=== PATIENT | female | born 1985 | race Caucasian/White ===

== ENCOUNTER 2016-11-05 12:44 | Inpatient (IN) | payer MEDICAID ==
[2016-11-05 13:30] LABS: APPEARANCE,URINE CLEAR; BILIRUBIN,URINE NEGATIVE (NEGATIVE); GLUCOSE, URINE NEGATIVE (NEGATIVE); KETONES,URINE NEGATIVE (NEGATIVE); LEUKOCYTE ESTERASE,URINE NEGATIVE (NEGATIVE); NITRITE,URINE NEGATIVE (NEGATIVE); PROTEIN,URINE NEGATIVE (NEGATIVE); UROBILINOGEN,URINE NEGATIVE mg/dL (<2.0)
[2016-11-05 13:40] LABS: ABSOLUTE LYMPHOCYTES (AUTO) 0.4 10^3/uL (0.5-4.7); ABSOLUTE MONOCYTES (AUTO) 0.3 10^3/uL (0.1-1.4); ABSOLUTE NEUT (AUTO) 6.5 10^3/uL (1.7-8.2); BASOPHILS % (AUTO) 0.6 % (0-2); EOSINOPHILS % (AUTO) 0.2 % (0-6); HEMATOCRIT 32.8 % (36.0-47.0); HEMOGLOBIN 11.1 g/dL (12.0-15.5); HGB HCT DIFFERENCE 0.5; MEAN CORPUSCULAR HEMOGLOBIN 31.5 pg (27.0-33.4); MEAN CORPUSCULAR HGB CONC 33.9 g/dL (32.0-36.0); MEAN CORPUSCULAR VOLUME 93 fl (80-97); MONOCYTES % (AUTO) 3.8 % (3-13); RED BLOOD COUNT 3.53 10^6/uL (3.72-5.28); RED CELL DISTRIBUTION WIDTH 12.8 % (11.5-14.0); SEGMENTED NEUTROPHILS % (AUTO) 89.4 % (42-78)
[2016-11-05 13:46] LABS: WHITE BLOOD COUNT 7.3 10^3/uL (4.0-10.5)
[2016-11-05 13:51] LABS: ALANINE AMINOTRANSFERASE 73 U/L (9-52); ALBUMIN 3.1 g/dL (3.5-5.0); ALKALINE PHOSPHATASE 57 U/L (38-126); ANION GAP 10 (5-19); ASPARTATE AMINO TRANSFERASE 80 U/L (14-36); BILIRUBIN,DIRECT 0.1 mg/dL (0.0-0.4); BILIRUBIN,TOTAL 0.4 mg/dL (0.2-1.3); BLOOD UREA NITROGEN 10 mg/dL (7-20); CALCIUM 8.4 mg/dL (8.4-10.2); CARBON DIOXIDE 20 mmol/L (22-30); CHLORIDE 106 mmol/L (98-107); CREATININE RESULT 0.46 mg/dL (0.52-1.25); GLUCOSE 73 mg/dL (75-110); LDH 417 U/L (313-618); POTASSIUM 4.1 mmol/L (3.6-5.0); SODIUM 135.6 mmol/L (137-145); TOTAL PROTEIN 5.8 g/dL (6.3-8.2); URIC ACID 4.5 mg/dL (2.5-6.2)
[2016-11-05 14:02] LABS: URINE BARBITURATES SCREEN NEGATIVE; URINE METHADONE SCREEN NEGATIVE; URINE OPIATES LOW NEGATIVE; URINE PHENCYCLIDINE SCREEN NEGATIVE
[2016-11-05] MEDS ORDERED: BETAMET ACET/BETAMET NA INJ 6 MG/1 ML ONE (15:39)
[2016-11-05] MEDS ORDERED: MAGNESIUM SULFATE 4 GM/100 ML RTUPB IV ONE (15:40)
--- NOTE | 2016-11-05 20:03 | L&D Flow Sheet ---
LD Flowsheet Datetime Report Generated by CPN: 11/05/2016 20:00 Datetime: 11/05/2016 19:47 NBP Sys/Tonya/Mean (mmHg): 139 (QS system process) : 75 (QS system process) : 100 (QS system process) Pulse: 77 (QS system process) LaborFlag: Antepartum (QS system process) Datetime: 11/05/2016 19:31 NBP Sys/Tonya/Mean (mmHg): 147 (QS system process) : 74 (QS system process) : 101 (QS system process) Pulse: 72 (QS system process) LaborFlag: Antepartum (QS system process) Datetime: 11/05/2016 19:20 Communication Comments: report given to Winifred Bowens RN. Care relinquished (Rita Dwyer, RN) Datetime: 11/05/2016 19:16 NBP Sys/Tonya/Mean (mmHg): 138 (QS system process) : 71 (QS system process) : 98 (QS system process) Pulse: 73 (QS system process) LaborFlag: Antepartum (QS system process) Datetime: 11/05/2016 19:12 Communication Comments: order received from Dr. Abdul for patient to eat (Rita Reymundo, RN) Datetime: 11/05/2016 19:01 NBP Sys/Tonya/Mean (mmHg): 144 (QS system process) : 76 (QS system process) : 102 (QS system process) Pulse: 73 (QS system process) LaborFlag: Antepartum (QS system process) Datetime: 11/05/2016 19:00 Uterine Activity Monitor Mode: External; Palpation (Rita Reymundo, RN) Frequency (min): 2-6.5 (Rita Reymundo, RN) Quality: Mild (Rita Reymundo, RN) Duration (sec): 60-90 (Rita Reymundo, RN) Duration Criteria: Less than Two 120 Second Contractions (Rita Reymundo, RN) Pattern: Normal: <= 5 Contractions in 10 Minutes (Rita Reymundo, RN) Resting Tone (Palpate): Relaxed (Rita Reymundo, RN) Assessment A Monitor Mode: External US (Rita Reymundo, RN) FHR Baseline Rate : 140 (Rita Reymundo, RN) FHR Baseline Changes: No Baseline Change (Rita Reymundo, RN) Variability: Moderate 6-25 bpm (Rita Reymundo, RN) Accelerations: None (Rita Reymundo, RN) Decelerations: None (Rita Reymundo, RN) Datetime: 11/05/2016 18:53 Communication Comments: Dr. Sethi at bedside discussing infant's POC (Rita Reymundo, RN) Datetime: 11/05/2016 18:47 NBP Sys/Tonya/Mean (mmHg): 136 (QS system process) : 77 (QS system process) : 101 (QS system process) Pulse: 76 (QS system process) LaborFlag: Antepartum (QS system process) Datetime: 11/05/2016 18:45 Uterine Activity Monitor Mode: External; Palpation (Rita Dwyer RN) Frequency (min): x1 (Rita Dwyer RN) Quality: Mild (Rita Dwyer RN) Duration (sec): 60 (Rita Reymundo, RN) Duration Criteria: Less than Two 120 Second Contractions (Rita Dwyer, RN) Pattern: Normal: <= 5 Contractions in 10 Minutes (Rita Dwyer, RN) Resting Tone (Palpate): Relaxed (Rita Dwyer, RN) Assessment A Monitor Mode: External US (Rita Dwyer, RN) FHR Baseline Rate : 140 (Rita Dwyer, RN) FHR Baseline Changes: No Baseline Change (Rita Reymundo, RN) Variability: Moderate 6-25 bpm (Rita Reymundo, RN) Accelerations: 15X15 (Rita Dwyer, RN) Decelerations: None (Rita Dwyer, RN) Datetime: 11/05/2016 18:31 NBP Sys/Tonya/Mean (mmHg): 146 (QS system process) : 81 (QS system process) : 106 (QS system process) Pulse: 71 (QS system process) LaborFlag: Antepartum (QS system process) Datetime: 11/05/2016 18:30 Uterine Activity Monitor Mode: External; Palpation (Rita Dwyer RN) Frequency (min): none (Rita Dwyer, RN) Quality: Mild (Rita Dwyer, RN) Duration Criteria: Less than Two 120 Second Contractions (Rita Dwyer, RN) Pattern: Normal: <= 5 Contractions in 10 Minutes (Rita Dwyer, RN) Resting Tone (Palpate): Relaxed (Rita Dwyer, RN) Assessment A Monitor Mode: External US (Rita Dwyer RN) FHR Baseline Rate : 140 (Rita Dwyer RN) FHR Baseline Changes: No Baseline Change (Rita Dwyer RN) Variability: Moderate 6-25 bpm (Rita Dwyer RN) Accelerations: 10X10 (Rita Reymundo, RN) Decelerations: None (Rita Dwyer, RN) Datetime: 11/05/2016 18:16 NBP Sys/Tonya/Mean (mmHg): 140 (QS system process) : 80 (QS system process) : 105 (QS system process) Pulse: 70 (QS system process) LaborFlag: Antepartum (QS system process) Datetime: 11/05/2016 18:15 Uterine Activity Monitor Mode: External; Palpation (Rita Dwyer RN) Frequency (min): 5-6 (Rita Dwyer, RN) Quality: Mild (Rita Reymundo, RN) Duration (sec): 70-80 (Rita Reymundo, RN) Duration Criteria: Less than Two 120 Second Contractions (Rita Reymundo, RN) Pattern: Normal: <= 5 Contractions in 10 Minutes (Rita Reymundo, RN) Resting Tone (Palpate): Relaxed (Rita Reymundo, RN) Assessment A Monitor Mode: External US (Rita Dwyer, RN) FHR Baseline Rate : 140 (Rita Dwyer, RN) FHR Baseline Changes: No Baseline Change (Rita Dwyer, RN) Variability: Moderate 6-25 bpm (Rita Reymundo, RN) Accelerations: 15X15 (Rita Reymundo, RN) Decelerations: None (Rita Reymundo, RN) Datetime: 11/05/2016 18:02 NBP Sys/Tonya/Mean (mmHg): 143 (QS system process) : 74 (QS system process) : 103 (QS system process) Pulse: 77 (QS system process) LaborFlag: Antepartum (QS system process) Datetime: 11/05/2016 18:00 Uterine Activity Monitor Mode: External; Palpation (Rita Reymundo, RN) Frequency (min): x2 (Rita Reymundo, RN) Quality: Mild (Rita Reymundo, RN) Duration (sec): 60-70 (Rita Reymundo, RN) Duration Criteria: Less than Two 120 Second Contractions (Rita Reymundo, RN) Pattern: Normal: <= 5 Contractions in 10 Minutes (Rita Reymundo, RN) Resting Tone (Palpate): Relaxed (Rita Reymundo, RN) Assessment A Monitor Mode: External US (Rita Dwyer, RN) FHR Baseline Rate : 140 (Rita Dwyer, RN) FHR Baseline Changes: No Baseline Change (Rita Dwyer, RN) Variability: Moderate 6-25 bpm (Rita Dwyer, RN) Accelerations: None (Rita Dwyer, RN) Decelerations: None (Rita Dwyer, RN) Datetime: 11/05/2016 17:47 NBP Sys/Tonya/Mean (mmHg): 149 (QS system process) : 80 (QS system process) : 109 (QS system process) Pulse: 73 (QS system process) LaborFlag: Antepartum (QS system process) Datetime: 11/05/2016 17:45 Uterine Activity Monitor Mode: External; Palpation (Rita Reymundo, RN) Frequency (min): 4.5-7 (Rita Reymundo, RN) Quality: Mild (Rita Reymundo, RN) Duration (sec): 50-70 (Rita Reymundo, RN) Duration Criteria: Less than Two 120 Second Contractions (Rita Reymundo, RN) Pattern: Normal: <= 5 Contractions in 10 Minutes (Rita Reymundo, RN) Resting Tone (Palpate): Relaxed (Rita Reymundo, RN) Assessment A Monitor Mode: External US (Rita Reymundo, RN) FHR Baseline Rate : 140 (Rita Reymundo, RN) FHR Baseline Changes: No Baseline Change (Rita Reymundo, RN) Variability: Moderate 6-25 bpm (Rita Reymundo, RN) Accelerations: 15X15 (Rita Reymundo, RN) Decelerations: None (Rita Reymundo, RN) Datetime: 11/05/2016 17:31 NBP Sys/Tonya/Mean (mmHg): 136 (QS system process) : 80 (QS system process) : 104 (QS system process) Pulse: 74 (QS system process) LaborFlag: Antepartum (QS system process) Datetime: 11/05/2016 17:30 Uterine Activity Monitor Mode: External; Palpation (Rita Dwyer RN) Frequency (min): x2 (Rita Dwyer RN) Quality: Mild (Rita Dwyer RN) Duration (sec): 60-70 (Rita Dwyer RN) Duration Criteria: Less than Two 120 Second Contractions (Rita Dwyer RN) Pattern: Normal: <= 5 Contractions in 10 Minutes (Rita Dwyer RN) Resting Tone (Palpate): Relaxed (Rita Dwyer RN) Assessment A Monitor Mode: External US (Rita Dwyer, RN) FHR Baseline Rate : 140 (Rita Dwyer, RN) FHR Baseline Changes: No Baseline Change (Rita Reymundo, RN) Variability: Moderate 6-25 bpm (Rita Dwyer, RN) Accelerations: 15X15 (Rita Dwyer, RN) Decelerations: None (Rita Dwyer, RN) Datetime: 11/05/2016 17:17 Communication Comments: MD okayed patient taking home medication. Labetalol 200 mg PO per order (Rita Dwyer, RN) Datetime: 11/05/2016 17:15 Uterine Activity Monitor Mode: External; Palpation (Rita Reymundo, RN) Frequency (min): none (Rita Reymundo, RN) Pattern: Normal: <= 5 Contractions in 10 Minutes (Rita Reymundo, RN) Resting Tone (Palpate): Relaxed (Rita Reymundo, RN) Assessment A Monitor Mode: External US (Rita Reymundo, RN) FHR Baseline Rate : 140 (Rita Reymundo, RN) FHR Baseline Changes: No Baseline Change (Rita Reymundo, RN) Variability: Moderate 6-25 bpm (Rita Reymundo, RN) Accelerations: 15X15 (Rita Reymundo, RN) Decelerations: None (Rita Reymundo, RN) Datetime: 11/05/2016 17:13 Patient Position/Activity: Left Tilt; Low Fowlers (Rita Reymundo, RN) Datetime: 11/05/2016 17:10 Communication Communication: RN at Bedside (Rita Reymundo, RN) Datetime: 11/05/2016 17:01 NBP Sys/Tonya/Mean (mmHg): 138 (QS system process) : 80 (QS system process) : 103 (QS system process) Pulse: 70 (QS system process) LaborFlag: Antepartum (QS system process) Datetime: 11/05/2016 17:00 Uterine Activity Monitor Mode: External; Palpation (Rita Dwyer, RN) Frequency (min): none (Rita Dwyer, RN) Resting Tone (Palpate): Relaxed (Rita Dwyer, MARBELLA) Assessment A Monitor Mode: External US (Rita Dwyer RN) FHR Baseline Rate : 140 (Rita Dwyer RN) FHR Baseline Changes: No Baseline Change (Rita Dwyer RN) Variability: Moderate 6-25 bpm (Rita Dwyer RN) Accelerations: 10X10 (Rita Dwyer RN) Decelerations: None (Rita Reymundo, RN) Datetime: 11/05/2016 16:46 NBP Sys/Tonya/Mean (mmHg): 137 (QS system process) : 73 (QS system process) : 99 (QS system process) Pulse: 66 (QS system process) LaborFlag: Antepartum (QS system process) Datetime: 11/05/2016 16:45 Uterine Activity Monitor Mode: External; Palpation (Rita Dwyer RN) Frequency (min): none (Rita Dwyer RN) Pattern: Normal: <= 5 Contractions in 10 Minutes (Rita Reymundo, RN) Resting Tone (Palpate): Relaxed (Rita Dwyer, RN) Assessment A Monitor Mode: External US (Rita Dwyer, RN) FHR Baseline Rate : 140 (Rita Dwyer, RN) FHR Baseline Changes: No Baseline Change (Rita Dwyer, RN) Variability: Moderate 6-25 bpm (Rita Dwyer, RN) Accelerations: None (Rita Dwyer, RN) Decelerations: None (Rita Dwyer, RN) Datetime: 11/05/2016 16:41 Communication Comments: bed rails padded (Rita Dwyer, RN) Communication Comments: Trevor hose and SCDs applied (Rita Dwyer, RN) Datetime: 11/05/2016 16:31 NBP Sys/Tonya/Mean (mmHg): 145 (QS system process) : 65 (QS system process) : 94 (QS system process) Pulse: 64 (QS system process) LaborFlag: Antepartum (QS system process) Datetime: 11/05/2016 16:30 Uterine Activity Monitor Mode: External; Palpation (Rita Dwyer RN) Frequency (min): none (Rita Dwyer, RN) Pattern: Normal: <= 5 Contractions in 10 Minutes (Rita Dwyer RN) Resting Tone (Palpate): Relaxed (Rita Dwyer RN) Assessment A Monitor Mode: External US (Rita Dwyer, RN) FHR Baseline Rate : 145 (Rita Dwyer, RN) FHR Baseline Changes: No Baseline Change (Rita Dwyer, RN) Variability: Moderate 6-25 bpm (Rita Dwyer RN) Accelerations: None (Rita Dwyer, RN) Decelerations: None (Rita Dwyer, RN) Datetime: 11/05/2016 16:16 NBP Sys/Tonya/Mean (mmHg): 162 (QS system process) : 103 (QS system process) : 128 (QS system process) Pulse: 69 (QS system process) Medications Magnesium/Antihypertensives: Magnesium Sulfate IV (Gm/hr) @ 2 (Rita Dwyer RN) LaborFlag: Antepartum (QS system process) Datetime: 11/05/2016 16:15 Uterine Activity Monitor Mode: External; Palpation (Rita Dwyer, RN) Frequency (min): none (Rita Dwyer, RN) Pattern: Normal: <= 5 Contractions in 10 Minutes (Rita Dwyer RN) Resting Tone (Palpate): Relaxed (Rita Dwyer, RN) Assessment A Monitor Mode: External US (Rita Dwyer, RN) FHR Baseline Rate : 145 (Rita Dwyer RN) FHR Baseline Changes: No Baseline Change (Rita Dwyer RN) Variability: Moderate 6-25 bpm (Rita Reymundo, RN) Accelerations: 15X15 (Rita Dwyer, RN) Decelerations: None (Rita Dwyer, RN) Datetime: 11/05/2016 16:01 NBP Sys/Tonya/Mean (mmHg): 172 (QS system process) : 95 (QS system process) : 127 (QS system process) Pulse: 66 (QS system process) LaborFlag: Antepartum (QS system process) Datetime: 11/05/2016 16:00 Uterine Activity Monitor Mode: External; Palpation (Rita Dwyer, RN) Frequency (min): none (Rita Dwyer, RN) Pattern: Normal: <= 5 Contractions in 10 Minutes (Rita Dwyer, RN) Resting Tone (Palpate): Relaxed (Rita Dwyer, RN) Assessment A Monitor Mode: External US (Rita Dwyer, RN) FHR Baseline Rate : 145 (Rita Dwyer, RN) FHR Baseline Changes: No Baseline Change (Rita Dwyer, RN) Variability: Moderate 6-25 bpm (Rita Dwyer, RN) Accelerations: 15X15 (Rita Dwyer, RN) Decelerations: None (Rita Dwyer, RN) Steroids: Celestone 12mg IM - Dose 1 (Rita Dwyer, RN) Datetime: 11/05/2016 15:58 Medications Magnesium/Antihypertensives: Magnesium Sulfate IV Loading (Gm) @ 4 (Rita Reymundo, RN) Datetime: 11/05/2016 15:56 I/O Interventions: [place] Cath Inserted (Rita Reymundo, RN) Datetime: 11/05/2016 15:46 NBP Sys/Tonya/Mean (mmHg): 169 (QS system process) : 102 (QS system process) : 130 (QS system process) Pulse: 68 (QS system process) LaborFlag: Antepartum (QS system process) Datetime: 11/05/2016 15:30 Uterine Activity Monitor Mode: External; Palpation (Rita Reymundo, RN) Frequency (min): none (Rita Reymundo, RN) Pattern: Normal: <= 5 Contractions in 10 Minutes (Rita Reymundo, RN) Resting Tone (Palpate): Relaxed (Rita Reymundo, RN) Assessment A Monitor Mode: External US (Rita Reymundo, RN) FHR Baseline Rate : 140 (Rita Reymundo, RN) FHR Baseline Changes: No Baseline Change (Rita Reymundo, RN) Variability: Moderate 6-25 bpm (Rita Reymundo, RN) Accelerations: 15X15 (Rita Reymundo, RN) Decelerations: None (Rita Reymundo, RN) Datetime: 11/05/2016 15:18 NBP Sys/Tonya/Mean (mmHg): 180 (QS system process) : 108 (QS system process) : 134 (QS system process) Pulse: 65 (QS system process) LaborFlag: Antepartum (QS system process) Datetime: 11/05/2016 15:00 Uterine Activity Monitor Mode: External; Palpation (Rita Dwyer RN) Frequency (min): none (Rita Dwyer RN) Duration Criteria: Less than Two 120 Second Contractions (Rita Dwyer RN) Resting Tone (Palpate): Relaxed (Rita Dwyer RN) Assessment A Monitor Mode: External US (Rita Reymundo, RN) FHR Baseline Rate : 140 (Rita Reymundo, RN) FHR Baseline Changes: No Baseline Change (Rita Reymundo, RN) Variability: Moderate 6-25 bpm (Rita Reymundo, RN) Accelerations: 15X15 (Rita Reymundo, RN) Decelerations: None (Rita Reymundo, RN) Datetime: 11/05/2016 14:54 I/O Interventions: Up to BR (Rita Reymundo, RN) Datetime: 11/05/2016 14:46 NBP Sys/Tonya/Mean (mmHg): 171 (QS system process) : 92 (QS system process) : 122 (QS system process) Pulse: 69 (QS system process) LaborFlag: Antepartum (QS system process) Datetime: 11/05/2016 14:45 Communication Comments: Order received from Dr. Abdul for Celestone 12 mg x1 now, repeat in 12 hours. Start magnesium sulfate at 4gram loading dose, start magnesium sulfate 2 gram maintenance dose of 2 mg/hr after bolus. Repeat pre-eclampsia labs in 6 hours (Rita Dwyer RN) Datetime: 11/05/2016 14:44 Communication Comments: Dr. Abdul at beside discussing POC (Rita Dwyer, RN) Datetime: 11/05/2016 14:31 NBP Sys/Tonya/Mean (mmHg): 136 (QS system process) : 81 (QS system process) : 103 (QS system process) Pulse: 66 (QS system process) LaborFlag: Antepartum (QS system process) Datetime: 11/05/2016 14:30 Uterine Activity Monitor Mode: External; Palpation (Rita Dwyer RN) Frequency (min): none (Rita Dwyer, RN) Pattern: Normal: <= 5 Contractions in 10 Minutes (Rita Dwyer RN) Resting Tone (Palpate): Relaxed (Rita Dwyer RN) Assessment A Monitor Mode: External US (Rita Reymundo, RN) FHR Baseline Rate : 145 (Rita Reymundo, RN) FHR Baseline Changes: No Baseline Change (Rita Reymundo, RN) Variability: Moderate 6-25 bpm (Rita Reymundo, RN) Accelerations: 15X15 (Rita Reymundo, RN) Decelerations: None (Rita Reymundo, RN) Datetime: 11/05/2016 14:16 NBP Sys/Tonya/Mean (mmHg): 135 (QS system process) : 83 (QS system process) : 104 (QS system process) Pulse: 69 (QS system process) LaborFlag: Antepartum (QS system process) Datetime: 11/05/2016 14:01 NBP Sys/Tonya/Mean (mmHg): 128 (QS system process) : 78 (QS system process) : 99 (QS system process) Pulse: 69 (QS system process) LaborFlag: Antepartum (QS system process) Datetime: 11/05/2016 14:00 Uterine Activity Monitor Mode: External; Palpation (Rita Dwyer RN) Frequency (min): none (Rita Dwyer, RN) Pattern: Normal: <= 5 Contractions in 10 Minutes (Rita Dwyer RN) Resting Tone (Palpate): Relaxed (Rita Dwyer RN) Assessment A Monitor Mode: External US (Rita Reymundo, RN) FHR Baseline Rate : 145 (Rita Dwyer RN) FHR Baseline Changes: No Baseline Change (Rita Dwyer RN) Variability: Moderate 6-25 bpm (Rita Dwyer, RN) Accelerations: 15X15 (Rita Dwyer RN) Decelerations: None (Rita Dwyer, RN) Datetime: 11/05/2016 13:46 NBP Sys/Tonya/Mean (mmHg): 129 (QS system process) : 80 (QS system process) : 99 (QS system process) Pulse: 67 (QS system process) LaborFlag: Antepartum (QS system process) Datetime: 11/05/2016 13:31 NBP Sys/Tonya/Mean (mmHg): 143 (QS system process) : 81 (QS system process) : 108 (QS system process) Pulse: 68 (QS system process) LaborFlag: Antepartum (QS system process) Datetime: 11/05/2016 13:30 Uterine Activity Monitor Mode: External; Palpation (Rita Dwyer, RN) Frequency (min): none (Rita Dwyer, RN) Pattern: Normal: <= 5 Contractions in 10 Minutes (Rita Dwyer, RN) Resting Tone (Palpate): Relaxed (Rita Dwyer, RN) Assessment A Monitor Mode: External US (Rita Dwyer, RN) FHR Baseline Rate : 145 (Rita Dwyer, RN) FHR Baseline Changes: No Baseline Change (Rita Dwyer, RN) Variability: Moderate 6-25 bpm (Rita Dwyer, RN) Accelerations: 15X15 (Rita Dwyer, RN) Decelerations: None (Rita Dwyer, RN) Datetime: 11/05/2016 13:26 Monitor Interventions for UA: [place] Adjusted (Rita Dwyer, RN) Assessment A Monitor Mode: External US (Rita Dwyer, RN) Pain Pain Scale: 0 (Rita Dwyer, RN) Pain Presence: None/Denies (Rita Dwyer, RN) Pain Goal: 1 (Rita Dwyer, RN) Pain Relief Measures: Comfort Measures (Rita Dwyer, RN) Vaginal Exam Membrane Status: Intact (Annotations: intact per patient) (Rita Dwyer, MARBELLA) Vaginal Bleeding: None (Rita Dwyer, RN) Maternal Assessment Level of Consciousness: Fully Conscious (Rita Dwyer, RN) DTR's/Clonus: DTRs 2+; No Clonus (Rita Dwyer, MARBELLA) Headache: Denies (Annotations: patient states she had a headache yesterday evening that was relieved after she took Tylenol) (Rita Dwyer, RN) Breath Sounds, Left: Clear and Equal (Rita Dwyer, RN) Breath Sounds, Right: Clear and Equal (Rita Dwyer, RN) Nausea/Vomiting: Denies (Rita Dwyer, RN) RUQ Epigastric Pain: Denies (Rita Dwyer, RN) Patient Care IV/Blood Work: Labs Drawn (Rita Dwyer RN) Oxygen Method: Room Air (Rita Dwyer RN) Teaching Instructional Method: Verbal (Rita Dwyer RN) Plan of Care: Plan of Care Discussed (Rita Dwyer RN) Unit Routine: [place] to Room; Call [place]; Bed (Rita Dwyer RN) LaborFlag: Antepartum (QS system process) Datetime: 11/05/2016 13:16 NBP Sys/Tonya/Mean (mmHg): 145 (QS system process) : 95 (QS system process) : 116 (QS system process) Pulse: 61 (QS system process) LaborFlag: Antepartum (QS system process) Datetime: 11/05/2016 13:09 Patient Position/Activity: Right Tilt; Semi-Fowlers (Rita Reymundo, RN) Datetime: 11/05/2016 13:00 Vital Signs Stage of : Antepartum (Rita Reymundo, RN)
[2016-11-05 21:18] LABS: HEMATOCRIT 36.3 % (36.0-47.0); HEMOGLOBIN 12.2 g/dL (12.0-15.5); HGB HCT DIFFERENCE 0.3; MEAN CORPUSCULAR HEMOGLOBIN 31.4 pg (27.0-33.4); MEAN CORPUSCULAR HGB CONC 33.6 g/dL (32.0-36.0); MEAN CORPUSCULAR VOLUME 94 fl (80-97); RED BLOOD COUNT 3.89 10^6/uL (3.72-5.28); RED CELL DISTRIBUTION WIDTH 12.7 % (11.5-14.0); WHITE BLOOD COUNT 7.8 10^3/uL (4.0-10.5)
[2016-11-05 21:35] LABS: BAND NEUTROPHILS % (MANUAL) 1 % (3-5); BASOPHILS % (MANUAL) 1 % (0-2); EOSINOPHILS % (MANUAL) 0 % (0-6); LYMPHOCYTES % (MANUAL) 4 % (13-45); TOTAL CELLS COUNTED 100
[2016-11-05 21:36] LABS: PLATELET CLUMPS PRESENT; POLYCHROMASIA SLIGHT
[2016-11-05 21:40] LABS: ALANINE AMINOTRANSFERASE 128 U/L (9-52); ALBUMIN 3.6 g/dL (3.5-5.0); ALKALINE PHOSPHATASE 75 U/L (38-126); ANION GAP 12 (5-19); ASPARTATE AMINO TRANSFERASE 132 U/L (14-36); BILIRUBIN,DIRECT 0.1 mg/dL (0.0-0.4); BILIRUBIN,TOTAL 0.4 mg/dL (0.2-1.3); BLOOD UREA NITROGEN 8 mg/dL (7-20); CALCIUM 8.4 mg/dL (8.4-10.2); CARBON DIOXIDE 21 mmol/L (22-30); CHLORIDE 103 mmol/L (98-107); CREATININE RESULT 0.42 mg/dL (0.52-1.25); GLUCOSE 123 mg/dL (75-110); LDH 497 U/L (313-618); POTASSIUM 4.2 mmol/L (3.6-5.0); SODIUM 136.3 mmol/L (137-145); TOTAL PROTEIN 6.4 g/dL (6.3-8.2); URIC ACID 5.3 mg/dL (2.5-6.2)
[2016-11-05] MEDS ORDERED: ACETAMINOPHEN 325 MG TABLET ONE (22:12)
[2016-11-06] MEDS ORDERED: ZOLPIDEM TARTRATE 5 MG TABLET ONE (00:05)
[2016-11-06] MEDS ORDERED: BETAMET ACET/BETAMET NA INJ 6 MG/1 ML ONE (04:00)
[2016-11-06] MEDS ORDERED: BETAMET ACET/BETAMET NA INJ 6 MG/1 ML IM ONE (04:00)
[2016-11-06] MEDS: RINGERS SOLUTION,LACTATED 1,000 ML IV PRN ×2 (04:23→12:05)
[2016-11-06] MEDS ORDERED: HYDROMORPHONE HCL INJ/PF 2 MG/ML AMPULE IV ONE (04:31)
[2016-11-06] MEDS ORDERED: ONDANSETRON HCL INJ/PF 4 MG/2 ML SDV IV ONE (04:31)
[2016-11-06] MEDS ORDERED: HYDROMORPHONE HCL INJ/PF 2 MG/ML AMPULE ONE ×4 (04:34→20:00)
[2016-11-06] MEDS ORDERED: ONDANSETRON HCL INJ/PF 4 MG/2 ML SDV ONE ×2 (04:35→09:14)
[2016-11-06] MEDS: MAGNESIUM SULFATE 500 ML IV PRN ×3 (05:04→16:02)
[2016-11-06 07:08] LABS: ABSOLUTE LYMPHOCYTES (AUTO) 0.4 10^3/uL (0.5-4.7); ABSOLUTE MONOCYTES (AUTO) 0.2 10^3/uL (0.1-1.4); ABSOLUTE NEUT (AUTO) 5.4 10^3/uL (1.7-8.2); BASOPHILS % (AUTO) 0.2 % (0-2); HEMATOCRIT 33.8 % (36.0-47.0); HEMOGLOBIN 11.6 g/dL (12.0-15.5); LYMPHOCYTES % (AUTO) 6.4 % (13-45); MEAN CORPUSCULAR HGB CONC 34.4 g/dL (32.0-36.0); MEAN CORPUSCULAR VOLUME 93 fl (80-97); MONOCYTES % (AUTO) 3.5 % (3-13); RED BLOOD COUNT 3.62 10^6/uL (3.72-5.28); RED CELL DISTRIBUTION WIDTH 12.9 % (11.5-14.0); SEGMENTED NEUTROPHILS % (AUTO) 89.9 % (42-78)
[2016-11-06 07:33] LABS: ALANINE AMINOTRANSFERASE 118 U/L (9-52); ALBUMIN 3.4 g/dL (3.5-5.0); ALKALINE PHOSPHATASE 74 U/L (38-126); ANION GAP 12 (5-19); ASPARTATE AMINO TRANSFERASE 97 U/L (14-36); BILIRUBIN,DIRECT 0.2 mg/dL (0.0-0.4); BILIRUBIN,TOTAL 0.4 mg/dL (0.2-1.3); BLOOD UREA NITROGEN 8 mg/dL (7-20); CALCIUM 7.3 mg/dL (8.4-10.2); CARBON DIOXIDE 19 mmol/L (22-30); CHLORIDE 103 mmol/L (98-107); CREATININE RESULT 0.45 mg/dL (0.52-1.25); GLUCOSE 103 mg/dL (75-110); LDH 422 U/L (313-618); POTASSIUM 4.7 mmol/L (3.6-5.0); SODIUM 133.5 mmol/L (137-145); TOTAL PROTEIN 6.1 g/dL (6.3-8.2)
--- NOTE | 2016-11-06 08:01 | L&D Flow Sheet ---
LD Flowsheet Datetime Report Generated by CPN: 11/06/2016 08:00 Datetime: 11/06/2016 07:56 NBP Sys/Tonya/Mean (mmHg): 141 (QS system process) : 97 (QS system process) : 116 (QS system process) Pulse: 75 (QS system process) LaborFlag: Antepartum (QS system process) Datetime: 11/06/2016 07:45 Breath Sounds, Left: Clear and Equal (Rita Dwyer RN) Breath Sounds, Right: Clear and Equal (Rita Dwyer RN) Nausea/Vomiting: Denies (Rita Dwyer RN) RUQ Epigastric Pain: Denies (Rita Dwyer RN) Magnesium/Antihypertensives: Magnesium Sulfate IV (Gm/hr) @ (Annotations: 2) (Rita Dwyer RN) Datetime: 11/06/2016 07:26 NBP Sys/Tonya/Mean (mmHg): 156 (QS system process) : 91 (QS system process) : 118 (QS system process) Pulse: 78 (QS system process) LaborFlag: Antepartum (QS system process) Datetime: 11/06/2016 07:00 Monitor Mode: External (Kim Bowens RN) Frequency (min): 8 (Kim Bowens RN) Quality: Mild (Kim Bowens RN) Duration (sec): 60-70 (Kim Bowens RN) Resting Tone (Palpate): Relaxed (Kim Bowens RN) Monitor Mode: External US (Kim Bowens RN) FHR Baseline Rate : 125 (Kim Kwan, RN) Variability: Moderate 6-25 bpm (Kim Kwan, RN) Accelerations: None (Kim Kwan, RN) Decelerations: None (Kim Kwan, RN) Level of Consciousness: Fully Conscious (Kim Kwan, RN) DTR's/Clonus: DTRs 2+; No Clonus (Kim Kwan, RN) Headache: Denies (Kim Kwan, RN) Breath Sounds, Left: Clear and Equal (Kim Kwan, RN) Breath Sounds, Right: Clear and Equal (Kim Kwan, RN) Nausea/Vomiting: Denies (Kim Kwan, RN) RUQ Epigastric Pain: Denies (Kim Kwan, RN) Datetime: 11/06/2016 06:56 NBP Sys/Tonya/Mean (mmHg): 138 (QS system process) : 76 (QS system process) : 100 (QS system process) Pulse: 77 (QS system process) LaborFlag: Antepartum (QS system process) Datetime: 11/06/2016 06:45 Monitor Mode: External (Kim Kwan, RN) Frequency (min): 8 (Kim Kwan, RN) Quality: Mild (Kim Kwan, RN) Duration (sec): 60-70 (Kim Kwan, RN) Resting Tone (Palpate): Relaxed (Kim Kwan, RN) Monitor Mode: External US (Kim Kwan, RN) FHR Baseline Rate : 120 (Kim Kwan, RN) Variability: Moderate 6-25 bpm (Kim Kwan, RN) Accelerations: 15X15 (Kim Kwan, RN) Decelerations: None (Kim Kwan, RN) Datetime: 11/06/2016 06:30 Monitor Mode: External (Kim Kwan, RN) Frequency (min): x1 (Kim Kwan, RN) Quality: Mild (Kim Kwan, RN) Duration (sec): 60 (Kim Kwan, RN) Resting Tone (Palpate): Relaxed (Kim Kwan, RN) Monitor Mode: External US (Kim Kwan, RN) FHR Baseline Rate : 120 (Kim Kwan, RN) Variability: Moderate 6-25 bpm (Kim Kwan, RN) Accelerations: 10X10 (Kim Kwan, RN) Decelerations: None (Kim Kwan, RN) Datetime: 11/06/2016 06:26 NBP Sys/Tonya/Mean (mmHg): 134 (QS system process) : 81 (QS system process) : 102 (QS system process) Pulse: 76 (QS system process) LaborFlag: Antepartum (QS system process) Datetime: 11/06/2016 06:15 Monitor Mode: External (Kim Kwan, RN) Frequency (min): 12 (Kim Kwan, RN) Quality: Mild (Kim Kwan, RN) Duration (sec): 50-60 (Kim Kwan, RN) Resting Tone (Palpate): Relaxed (Kim Kwan, RN) Monitor Mode: External US (Kim Kwan, RN) FHR Baseline Rate : 120 (Kim Kwan, RN) Variability: Moderate 6-25 bpm (Kim Kwan, RN) Accelerations: None (Kim Kwan, RN) Decelerations: None (Kim Kwan, RN) Datetime: 11/06/2016 06:00 Monitor Mode: External (Kim Kwan, RN) Frequency (min): x1 (Kim Kwan, RN) Quality: Mild (Kim Kwan, RN) Duration (sec): 60 (Kim Kwan, RN) Resting Tone (Palpate): Relaxed (Kim Kwan, RN) Monitor Mode: External US (Kim Kwan, RN) FHR Baseline Rate : 120 (Kim Kwan, RN) Variability: Moderate 6-25 bpm (Kim Kwan, RN) Accelerations: None (Kim Kwan, RN) Decelerations: None (Kim Kwan, RN) Level of Consciousness: Fully Conscious (Kim Kwan, RN) DTR's/Clonus: DTRs 2+; No Clonus (Kim Kwan, RN) Headache: Denies (Kim Kwan, RN) Breath Sounds, Left: Clear and Equal (Kim Kwan, RN) Breath Sounds, Right: Clear and Equal (Kim Kwan, RN) Nausea/Vomiting: Denies (Kim Kwan, RN) RUQ Epigastric Pain: Denies (Kim Kwan, RN) Datetime: 11/06/2016 05:56 NBP Sys/Tonya/Mean (mmHg): 133 (QS system process) : 82 (QS system process) : 103 (QS system process) Pulse: 72 (QS system process) LaborFlag: Antepartum (QS system process) Datetime: 11/06/2016 05:45 Monitor Mode: External (Kim Kwan, RN) Frequency (min): 10 (Kim Kwan, RN) Quality: Mild (Kim Kwan, RN) Duration (sec): 50-60 (Kim Kwan, RN) Resting Tone (Palpate): Relaxed (Kim Kwan, RN) Monitor Mode: External US (Kim Kwan, RN) FHR Baseline Rate : 120 (Kim Kwan, RN) Variability: Moderate 6-25 bpm (Kim Kwan, RN) Accelerations: None (Kim Kwan, RN) Decelerations: None (Kim Kwan, RN) Datetime: 11/06/2016 05:30 Monitor Mode: External (Kim Kwan, RN) Frequency (min): x1 (Kim Kwan, RN) Quality: Mild (Kim Kwan, RN) Duration (sec): 50 (Kim Kwan, RN) Resting Tone (Palpate): Relaxed (Kim Kwan, RN) Monitor Mode: External US (Kim Kwan, RN) FHR Baseline Rate : 125 (Kim Kwan, RN) Variability: Moderate 6-25 bpm (Kim Kwan, RN) Accelerations: None (Kim Kwan, RN) Decelerations: None (Kim Kwan, RN) Datetime: 11/06/2016 05:26 NBP Sys/Tonya/Mean (mmHg): 134 (QS system process) : 86 (QS system process) : 105 (QS system process) Pulse: 83 (QS system process) LaborFlag: Antepartum (QS system process) Datetime: 11/06/2016 05:15 Monitor Mode: External (Kim Kwan, RN) Frequency (min): 10 (Kim Kwan, RN) Quality: Mild (Kim Kwan, RN) Duration (sec): 60 (Kim Kwan, RN) Resting Tone (Palpate): Relaxed (Kim Kwan, RN) Monitor Mode: External US (Kim Kwan, RN) FHR Baseline Rate : 125 (Kim Kwan, RN) Variability: Moderate 6-25 bpm (Kim Kwan, RN) Accelerations: None (Kim Kwan, RN) Decelerations: None (Kim Kwan, RN) Datetime: 11/06/2016 05:00 Monitor Mode: External (Kim Kwan, RN) Frequency (min): x1 (Kim Kwan, RN) Quality: Mild (Kim Kwan, RN) Duration (sec): 60 (Kim Kwan, RN) Resting Tone (Palpate): Relaxed (Kim Kwan, RN) Monitor Mode: External US (Kim Kwan, RN) FHR Baseline Rate : 125 (Kim Kwan, RN) Variability: Moderate 6-25 bpm (Kim Kwan, RN) Accelerations: 10X10 (Kim Kwan, RN) Decelerations: None (Kim Kwan, RN) Pain Presence: None/Denies (Kim Kwan, RN) Level of Consciousness: Fully Conscious (Kim Kwan, RN) DTR's/Clonus: DTRs 2+; No Clonus (Kim Kwan, RN) Headache: Denies (Kim Kwan, RN) Breath Sounds, Left: Clear and Equal (Kim Kwan, RN) Breath Sounds, Right: Clear and Equal (Kim Kwan, RN) Nausea/Vomiting: Denies (Kim Kwan, RN) RUQ Epigastric Pain: Denies (Kim Kwan, RN) LaborFlag: Antepartum (QS system process) Datetime: 11/06/2016 04:56 NBP Sys/Tonya/Mean (mmHg): 137 (QS system process) : 82 (QS system process) : 105 (QS system process) Pulse: 86 (QS system process) Communication Comments: report from Paresh Mars RN, care assumed (Kim Bowens, RN) LaborFlag: Antepartum (QS system process) Datetime: 11/06/2016 04:45 Monitor Mode: External (Kim Kwan, RN) Frequency (min): x1 (Kim Kwan, RN) Quality: Mild (Kim Kwan, RN) Duration (sec): 70 (Kim Kwan, RN) Resting Tone (Palpate): Relaxed (Kim Kwan, RN) Monitor Mode: External US (Kim Kwan, RN) FHR Baseline Rate : 125 (Kim Kwan, RN) Variability: Moderate 6-25 bpm (Kim Kwan, RN) Accelerations: 15X15 (Kim Kwan, RN) Decelerations: None (Kim Kwan, RN) Analgesics/Sedatives: Dilaudid (mg) @ 2 IV (Jena Mars RN) Antiemetics/Antacids: Zofran IV (mg) @ 8 (Jena Mars RN) Datetime: 11/06/2016 04:30 Monitor Mode: External (Kim Kwan, RN) Frequency (min): 10 (Kim Kwan, RN) Quality: Mild (Kim Kwan, RN) Duration (sec): 40-70 (Kim Kwan, RN) Resting Tone (Palpate): Relaxed (Kim Kwan, RN) Monitor Mode: External US (Kim Kwan, RN) FHR Baseline Rate : 125 (Kim Kwan, RN) Variability: Moderate 6-25 bpm (Kim Kwan, RN) Accelerations: 10X10 (Kim Kwan, RN) Decelerations: None (Kim Kwan, RN) Datetime: 11/06/2016 04:29 Communication: RN Reviewed Strip; Provider Orders Received; Call/Page Placed to Provider (Jena Mars RN) Communication Comments: Informed Dr. Abdul of patient's complaint of headache and nausea that comes and goes and is asking for some IV meds; orders received for Dilaudid 1 mL and Zofran 8 mg IV now (Jena Mars RN) Datetime: 11/06/2016 04:26 NBP Sys/Tonya/Mean (mmHg): 139 (QS system process) : 95 (QS system process) : 112 (QS system process) Pulse: 84 (QS system process) LaborFlag: Antepartum (QS system process) Datetime: 11/06/2016 04:23 IV/Blood Work: IV Infusing per Order; New IV Bag Hung (Jena Field, RN) Datetime: 11/06/2016 04:15 Monitor Mode: External (Kim Kwan, RN) Frequency (min): None (Ikm Kwan, RN) Quality: Mild (Kim Kwan, RN) Resting Tone (Palpate): Relaxed (Kim Kwan, RN) Monitor Mode: External US (Kim Kwan, RN) FHR Baseline Rate : 125 (Kim Kwan, RN) Variability: Moderate 6-25 bpm (Kim Kwan, RN) Accelerations: 10X10 (Kim Kwan, RN) Decelerations: None (Kim Kwan, RN) Datetime: 11/06/2016 04:06 Steroids: Celestone 12mg IM - Dose 2 (Jena Field, RN) Medication Comments: Right Buttocks (Jena Field, RN) Datetime: 11/06/2016 04:00 Monitor Mode: External (Kim Kwan, RN) Frequency (min): 10-11 (Kim Kwan, RN) Quality: Mild (Kim Kwan, RN) Duration (sec): 60-70 (Kim Kwan, RN) Resting Tone (Palpate): Relaxed (Kim Kwan, RN) Monitor Mode: External US (Kim Kwan, RN) FHR Baseline Rate : 125 (Kim Kwan, RN) Variability: Moderate 6-25 bpm (Kim Kwan, RN) Accelerations: 15X15 (Kim Kwan, RN) Decelerations: None (Kim Kwan, RN) Level of Consciousness: Fully Conscious (Jena Field, RN) DTR's/Clonus: DTRs 2+; No Clonus (Jena Field, RN) Headache: Generalized (Jena Field, RN) Breath Sounds, Left: Clear and Equal (Jena Field, RN) Breath Sounds, Right: Clear and Equal (Jena Field, RN) Nausea/Vomiting: Denies (Jena Field, RN) RUQ Epigastric Pain: Denies (Jena Field, RN) Datetime: 11/06/2016 03:56 NBP Sys/Tonya/Mean (mmHg): 156 (QS system process) : 88 (QS system process) : 115 (QS system process) Pulse: 81 (QS system process) LaborFlag: Antepartum (QS system process) Datetime: 11/06/2016 03:45 Monitor Mode: External (Kim Kwan, RN) Frequency (min): x1 (Kim Kwan, RN) Quality: Mild (Kim Kwan, RN) Duration (sec): 60 (Kim Kwan, RN) Resting Tone (Palpate): Relaxed (Kim Kwan, RN) Monitor Mode: External US (Kim Kwan, RN) FHR Baseline Rate : 125 (Kim Kwan, RN) Variability: Moderate 6-25 bpm (Kim Kwan, RN) Accelerations: 15X15 (Kim Kwan, RN) Decelerations: None (Kim Kwan, RN) Datetime: 11/06/2016 03:30 Monitor Mode: External (Kim Kwan, RN) Frequency (min): x1 (Kim Kwan, RN) Quality: Mild (Kim Kwan, RN) Duration (sec): 50 (Kim Kwan, RN) Resting Tone (Palpate): Relaxed (Kim Kwan, RN) Monitor Mode: External US (Kim Kwan, RN) FHR Baseline Rate : 125 (Kim Kwan, RN) Variability: Moderate 6-25 bpm (Kim Kwan, RN) Accelerations: 15X15 (Kim Kwan, RN) Decelerations: None (Kim Kwan, RN) Datetime: 11/06/2016 03:26 NBP Sys/Tonya/Mean (mmHg): 144 (QS system process) : 86 (QS system process) : 111 (QS system process) Pulse: 80 (QS system process) LaborFlag: Antepartum (QS system process) Datetime: 11/06/2016 03:15 Monitor Mode: External; Palpation (Jena Field, RN) Frequency (min): x1 (Jena Mars, RN) Quality: Mild (Jena , RN) Duration (sec): 60 (Jena Mars, RN) Resting Tone (Palpate): Relaxed (Jena Mars, RN) Monitor Mode: External US (Jena Mars, RN) FHR Baseline Rate : 120 (Jena Mars, RN) Variability: Moderate 6-25 bpm (Jena , RN) Accelerations: 10X10 (Jena Mars, RN) Decelerations: None (Jena Mars, RN) Datetime: 11/06/2016 03:00 Monitor Mode: External; Palpation (Jena Mars, RN) Frequency (min): x1 (Jena Mars, RN) Quality: Mild (Jena Mars, RN) Duration (sec): 60 (Jena Mars, RN) Resting Tone (Palpate): Relaxed (Jena Mars, RN) Monitor Mode: External US (Jena Mars, RN) FHR Baseline Rate : 120 (Jena Mars, RN) Variability: Moderate 6-25 bpm (Jena , RN) Accelerations: None (Jena Mars, RN) Decelerations: None (Jena Mars, RN) Level of Consciousness: Fully Conscious (Jena Mars, RN) DTR's/Clonus: DTRs 2+; No Clonus (Jena Mars, RN) Headache: Generalized (Jena Mars, RN) Breath Sounds, Left: Clear and Equal (Jena Mars, RN) Breath Sounds, Right: Clear and Equal (Jena Mars, RN) Nausea/Vomiting: Denies (Jena Mars, RN) RUQ Epigastric Pain: Denies (Jena Mars, RN) Datetime: 11/06/2016 02:56 NBP Sys/Tonya/Mean (mmHg): 138 (QS system process) : 90 (QS system process) : 111 (QS system process) Pulse: 78 (QS system process) LaborFlag: Antepartum (QS system process) Datetime: 11/06/2016 02:45 Monitor Mode: External; Palpation (Jena Mars, RN) Frequency (min): None (Jena Mars, RN) Quality: Mild (Jena Mars, RN) Resting Tone (Palpate): Relaxed (Jena Mars, RN) Monitor Mode: External US (Jena Mars, RN) FHR Baseline Rate : 120 (Jena Mars, RN) Variability: Moderate 6-25 bpm (Jena Mars, RN) Accelerations: 15X15 (Jena Mars, RN) Decelerations: None (Jena Mars, RN) Datetime: 11/06/2016 02:30 Monitor Mode: External; Palpation (Jena Field, RN) Frequency (min): None (Jena Field, RN) Quality: Mild (Jena Field, RN) Resting Tone (Palpate): Relaxed (Jena Field, RN) Monitor Mode: External US (Jena Field, RN) FHR Baseline Rate : 125 (Jena Field, RN) Variability: Moderate 6-25 bpm (Jena Field, RN) Accelerations: 15X15 (Jena Field, RN) Decelerations: None (Jena Field, RN) Datetime: 11/06/2016 02:26 NBP Sys/Tonya/Mean (mmHg): 142 (QS system process) : 90 (QS system process) : 111 (QS system process) Pulse: 86 (QS system process) LaborFlag: Antepartum (QS system process) Datetime: 11/06/2016 02:22 Magnesium/Antihypertensives: Magnesium Sulfate IV (Gm/hr) @ 2 (Alfreda Lattibeaudeir, RN) Medication Comments: Magnesium bag changed (Alfreda Lattibeaudeir, RN) Datetime: 11/06/2016 02:15 Monitor Mode: External; Palpation (Jena Field, RN) Frequency (min): x1 (Jena Field, RN) Quality: Mild (Jena Field, RN) Duration (sec): 50 (Jena Field, RN) Resting Tone (Palpate): Relaxed (Jena Field, RN) Monitor Mode: External US (Jena Field, RN) FHR Baseline Rate : 125 (Jena Field, RN) Variability: Moderate 6-25 bpm (Jena Field, RN) Accelerations: 15X15 (Jena Field, RN) Decelerations: None (Jena Field, RN) Datetime: 11/06/2016 02:00 Monitor Mode: External; Palpation (Jena Field, RN) Frequency (min): x1 (Jena Field, RN) Quality: Mild (Jena Field, RN) Duration (sec): 80 (Jena Field, RN) Resting Tone (Palpate): Relaxed (Jena Field, RN) Monitor Mode: External US (Jena Field, RN) FHR Baseline Rate : 125 (Jena Field, RN) Variability: Moderate 6-25 bpm (Jena Field, RN) Accelerations: 10X10 (Jena Field, RN) Decelerations: None (Jena Field, RN) Level of Consciousness: Fully Conscious (Jena Field, RN) DTR's/Clonus: DTRs 2+; No Clonus (Jena Field, RN) Headache: Generalized (Jena Field, RN) Breath Sounds, Left: Clear and Equal (Jena Field, RN) Breath Sounds, Right: Clear and Equal (Jena Field, RN) Nausea/Vomiting: Denies (Jena Field, RN) RUQ Epigastric Pain: Denies (Jena Field, RN) Datetime: 11/06/2016 01:56 NBP Sys/Tonya/Mean (mmHg): 138 (QS system process) : 83 (QS system process) : 105 (QS system process) Pulse: 85 (QS system process) LaborFlag: Antepartum (QS system process) Datetime: 11/06/2016 01:45 Monitor Mode: External; Palpation (Jena Field, RN) Frequency (min): x1 (Jena Field, RN) Quality: Mild (Jena Field, RN) Duration (sec): 70 (Jena Field, RN) Resting Tone (Palpate): Relaxed (Jena Field, RN) Monitor Mode: External US (Jena Field, RN) FHR Baseline Rate : 125 (Jena Field, RN) Variability: Moderate 6-25 bpm (Jena Field, RN) Accelerations: 15X15 (Jena Field, RN) Decelerations: None (Jena Field, RN) Datetime: 11/06/2016 01:30 Monitor Mode: External; Palpation (Jena Field, RN) Frequency (min): None (Jena Field, RN) Quality: Mild (Jena Field, RN) Resting Tone (Palpate): Relaxed (Jena Field, RN) Monitor Mode: External US (Jena Field, RN) FHR Baseline Rate : 125 (Jena Field, RN) Variability: Moderate 6-25 bpm (Jena Field, RN) Accelerations: 10X10 (Jena Field, RN) Decelerations: None (Jena Field, RN) Datetime: 11/06/2016 01:26 NBP Sys/Tonya/Mean (mmHg): 138 (QS system process) : 80 (QS system process) : 103 (QS system process) Pulse: 77 (QS system process) LaborFlag: Antepartum (QS system process) Datetime: 11/06/2016 01:15 Monitor Mode: External; Palpation (Jena Field, RN) Frequency (min): None (Jena Field, RN) Quality: Mild (Jena Field, RN) Resting Tone (Palpate): Relaxed (Jena Field, RN) Monitor Mode: External US (Jena Field, RN) FHR Baseline Rate : 125 (Jena Field, RN) Variability: Moderate 6-25 bpm (Jena Field, RN) Accelerations: 10X10 (Jena Field, RN) Decelerations: None (Jena Field, RN) Datetime: 11/06/2016 01:00 Monitor Mode: External; Palpation (Jena Field, RN) Frequency (min): None (Jena Field, RN) Quality: Mild (Jena Field, RN) Resting Tone (Palpate): Relaxed (Jena Field, RN) Monitor Mode: External US (Jena Field, RN) FHR Baseline Rate : 125 (Jena Field, RN) Variability: Moderate 6-25 bpm (Jena Field, RN) Accelerations: 10X10 (Jena Field, RN) Decelerations: None (Jena Field, RN) Level of Consciousness: Fully Conscious (Jena Field, RN) DTR's/Clonus: DTRs 2+; No Clonus (Jena Field, RN) Headache: Generalized (Jena Field, RN) Breath Sounds, Left: Clear and Equal (Jena Field, RN) Breath Sounds, Right: Clear and Equal (Jena Field, RN) Nausea/Vomiting: Denies (Jena Field, RN) RUQ Epigastric Pain: Denies (Jena Field, RN) Datetime: 11/06/2016 00:56 NBP Sys/Tonya/Mean (mmHg): 138 (QS system process) : 85 (QS system process) : 107 (QS system process) Pulse: 81 (QS system process) LaborFlag: Antepartum (QS system process) Datetime: 11/06/2016 00:45 Monitor Mode: External; Palpation (Jena Mars RN) Frequency (min): Irritability (Jena Mars RN) Quality: Mild (Jena Mars RN) Resting Tone (Palpate): Relaxed (Jena Mars RN) Monitor Mode: External US (Jena Mars RN) Monitor Interventions for FHR: Ultrasound Adjusted (Jena Mars RN) FHR Baseline Changes: Unable to Determine (Jena Mars RN) Datetime: 11/06/2016 00:30 Monitor Mode: External; Palpation (Jena Mars RN) Frequency (min): None (Jena Mars RN) Quality: Mild (Jena Mars RN) Resting Tone (Palpate): Relaxed (Jena Mars RN) Monitor Mode: External US (Jena Mars RN) FHR Baseline Rate : 125 (Jena Field, RN) Variability: Moderate 6-25 bpm (Jena Field, RN) Datetime: 11/06/2016 00:26 NBP Sys/Tonya/Mean (mmHg): 135 (QS system process) : 88 (QS system process) : 107 (QS system process) Pulse: 84 (QS system process) LaborFlag: Antepartum (QS system process) Datetime: 11/06/2016 00:15 Monitor Mode: External; Palpation (Jena , RN) Frequency (min): x1 (Jena Mars, RN) Quality: Mild (Jena Field, RN) Duration (sec): 80 (Jena Field, RN) Resting Tone (Palpate): Relaxed (Jena Mars, RN) Monitor Mode: External US (Jena , RN) FHR Baseline Rate : 125 (Jena Field, RN) Variability: Moderate 6-25 bpm (Jena Field, RN) Accelerations: 15X15 (Jena Field, RN) Decelerations: None (Jena Field, RN) Datetime: 11/06/2016 00:10 Communication: Report Given to @ (Annotations: J Field RN ) (Kim Kwan, RN) Datetime: 11/06/2016 00:07 Medication Comments: ambien 5 mg PO (Kim Kwan, RN) Datetime: 11/06/2016 00:00 Monitor Mode: External; Palpation (Jena Mars, RN) Frequency (min): Irritability (Jena Mars, RN) Quality: Mild (Jena Mars RN) Resting Tone (Palpate): Relaxed (Jena Field, RN) Monitor Interventions for FHR: Ultrasound Adjusted (Jena Mars RN) FHR Baseline Changes: Unable to Determine (Jena Mars RN) Level of Consciousness: Fully Conscious (Kim Bowens, RN) DTR's/Clonus: DTRs 2+; No Clonus (Kim Kwan, RN) Headache: Generalized (Kim Kwan, RN) Breath Sounds, Left: Clear and Equal (Kim Kwan, RN) Breath Sounds, Right: Clear and Equal (Kim Kwan, RN) Nausea/Vomiting: Denies (Kim Kwan, RN) RUQ Epigastric Pain: Denies (Kim Kwan, RN) Datetime: 11/05/2016 23:46 NBP Sys/Tonya/Mean (mmHg): 140 (QS system process) : 83 (QS system process) : 106 (QS system process) Pulse: 79 (QS system process) LaborFlag: Antepartum (QS system process) Datetime: 11/05/2016 23:45 Monitor Mode: External; Palpation (Jena Mars, RN) Frequency (min): x1 (Jena Mars, RN) Quality: Mild (Jena Mars, RN) Duration (sec): 70 (Jena Mars, RN) Resting Tone (Palpate): Relaxed (Jena Mars, RN) FHR Baseline Changes: Unable to Determine (Jena Mars, RN) Datetime: 11/05/2016 23:31 NBP Sys/Tonya/Mean (mmHg): 146 (QS system process) : 84 (QS system process) : 108 (QS system process) Pulse: 90 (QS system process) LaborFlag: Antepartum (QS system process) Datetime: 11/05/2016 23:30 Monitor Mode: External; Palpation (Jena Mars, RN) Frequency (min): None (Jena Mars, RN) Quality: Mild (Jena Mars, RN) Resting Tone (Palpate): Relaxed (Jena Mars, RN) Monitor Mode: External US (Jena Mars RN) FHR Baseline Rate : 125 (Jena Mars RN) Variability: Moderate 6-25 bpm (Jena Field, RN) Accelerations: 15X15 (Jena Field, RN) Decelerations: None (Jena Field, RN) Datetime: 11/05/2016 23:16 NBP Sys/Tonya/Mean (mmHg): 143 (QS system process) : 82 (QS system process) : 107 (QS system process) Pulse: 80 (QS system process) LaborFlag: Antepartum (QS system process) Datetime: 11/05/2016 23:15 Monitor Mode: External (Kim Kwan, RN) Frequency (min): x1; irritability (Kim Kwan, RN) Quality: Mild (Kim Kwan, RN) Duration (sec): 70 (Kim Kwan, RN) Resting Tone (Palpate): Relaxed (Kim Kwan, RN) Monitor Mode: External US (Kim Kwan, RN) FHR Baseline Rate : 125 (Kim Kwan, RN) Variability: Moderate 6-25 bpm (Kim Kwan, RN) Accelerations: Prolonged (Kim Kwan, RN) Decelerations: None (Kim Kwan, RN) Datetime: 11/05/2016 23:01 NBP Sys/Tonya/Mean (mmHg): 136 (QS system process) : 81 (QS system process) : 103 (QS system process) Pulse: 80 (QS system process) LaborFlag: Antepartum (QS system process) Datetime: 11/05/2016 23:00 Monitor Mode: External (Kim Kwan, RN) Frequency (min): None (Kim Kwan, RN) Resting Tone (Palpate): Relaxed (Kim Kwan, RN) Monitor Mode: External US (Kim Kwan, RN) FHR Baseline Rate : 130 (Kim Kwan, RN) Variability: Moderate 6-25 bpm (Kim Kwan, RN) Accelerations: 15X15 (Kim Kwan, RN) Decelerations: None (Kim Kwan, RN) Level of Consciousness: Fully Conscious (Kim Kwan, RN) DTR's/Clonus: DTRs 2+; No Clonus (Kim Kwan, RN) Headache: Generalized (Kim Kwan, RN) Breath Sounds, Left: Clear and Equal (Kim Kwan, RN) Breath Sounds, Right: Clear and Equal (Kim Kwan, RN) Nausea/Vomiting: Denies (Kim Kwan, RN) RUQ Epigastric Pain: Denies (Kim Kwan, RN) Datetime: 11/05/2016 22:46 NBP Sys/Tonya/Mean (mmHg): 142 (QS system process) : 83 (QS system process) : 108 (QS system process) Pulse: 82 (QS system process) LaborFlag: Antepartum (QS system process) Datetime: 11/05/2016 22:45 Monitor Mode: External (Kim Kwan, RN) Frequency (min): x1 (Kim Kwan, RN) Quality: Mild (Kim Kwan, RN) Duration (sec): 50 (Kim Kwan, RN) Resting Tone (Palpate): Relaxed (Kim Kwan, RN) Monitor Mode: External US (Kim Kwan, RN) FHR Baseline Rate : 135 (Kim Kwan, RN) Variability: Moderate 6-25 bpm (Kim Kwan, RN) Accelerations: 15X15 (Kim Kwan, RN) Decelerations: None (Kim Kawn, RN) Datetime: 11/05/2016 22:31 NBP Sys/Tonya/Mean (mmHg): 141 (QS system process) : 82 (QS system process) : 105 (QS system process) Pulse: 86 (QS system process) LaborFlag: Antepartum (QS system process) Datetime: 11/05/2016 22:30 Monitor Mode: External (Kim Kwan, RN) Frequency (min): x1 (Kim Kwan, RN) Quality: Mild (Kim Kwan, RN) Duration (sec): 40 (Kim Kwan, RN) Resting Tone (Palpate): Relaxed (Kim Kwan, RN) Monitor Mode: External US (Kim Kwan, RN) FHR Baseline Rate : 125 (Kim Kwan, RN) Variability: Moderate 6-25 bpm (Kim Kwan, RN) Accelerations: 15X15 (Kim Kwan, RN) Decelerations: None (Kim Kwan, RN) Datetime: 11/05/2016 22:16 NBP Sys/Tonya/Mean (mmHg): 145 (QS system process) : 86 (QS system process) : 110 (QS system process) Pulse: 94 (QS system process) LaborFlag: Antepartum (QS system process) Datetime: 11/05/2016 22:15 Monitor Mode: External (Kim Kwan, RN) Frequency (min): x1 (Kim Kwan, RN) Quality: Mild (Kim Kwan, RN) Duration (sec): 60 (Kim Kwan, RN) Resting Tone (Palpate): Relaxed (Kim Kwan, RN) Monitor Mode: External US (Kim Kwan, RN) FHR Baseline Rate : 125 (Kim Kwan, RN) Variability: Moderate 6-25 bpm (Kim Kwan, RN) Accelerations: 15X15 (Kim Kwan, RN) Decelerations: None (Kim Kwan, RN) Datetime: 11/05/2016 22:13 Medication Comments: tylenol 650 mg PO (Kim Kwan, RN) Datetime: 11/05/2016 22:01 NBP Sys/Tonya/Mean (mmHg): 140 (QS system process) : 81 (QS system process) : 104 (QS system process) Pulse: 85 (QS system process) LaborFlag: Antepartum (QS system process) Datetime: 11/05/2016 22:00 Monitor Mode: External (Kim Kwan, RN) Frequency (min): x1 (Kim Kwan, RN) Quality: Mild (Kim Kwan, RN) Duration (sec): 60 (Kim Kwan, RN) Resting Tone (Palpate): Relaxed (Kim Kwan, RN) Monitor Mode: External US (Kim Kwan, RN) FHR Baseline Rate : 130 (Kim Kwan, RN) Variability: Moderate 6-25 bpm (Kim Kwan, RN) Accelerations: 15X15 (Kim Kwan, RN) Decelerations: None (Kim Kwan, RN) Level of Consciousness: Fully Conscious (Kim Kwan, RN) DTR's/Clonus: DTRs 2+; No Clonus (Kim Kwan, RN) Headache: Frontal (Kim Kwan, RN) Breath Sounds, Left: Clear and Equal (Kim Kwan, RN) Breath Sounds, Right: Clear and Equal (Kim Kwan, RN) Nausea/Vomiting: Denies (Kim Kwan, RN) RUQ Epigastric Pain: Denies (Kim Kwan, RN) Datetime: 11/05/2016 21:55 Communication: Report Given to @ Dr Abdul (Kim Kwan, RN) Communication Comments: Report re: lab results to Dr Abdul, on unit. Report on pt headache and plan for tylenol administration. Plan remains to administer betamethasone at 0400. Pt to be NPO after midnight (Kim Bowens RN) Datetime: 11/05/2016 21:46 NBP Sys/Tonya/Mean (mmHg): 141 (QS system process) : 82 (QS system process) : 104 (QS system process) Pulse: 86 (QS system process) LaborFlag: Antepartum (QS system process) Datetime: 11/05/2016 21:45 Monitor Mode: External (Kim Bowens RN) Frequency (min): 9 (Kim Bowens RN) Quality: Mild (Kim Bowens RN) Duration (sec): 60 (Kim Bowens RN) Resting Tone (Palpate): Relaxed (Kim Bowens RN) Monitor Mode: External US (Kim Bowens RN) FHR Baseline Rate : 130 (Kim Kwan, RN) Variability: Moderate 6-25 bpm (Kim Kwan, RN) Accelerations: 15X15 (Kim Kwan, RN) Decelerations: None (Kim Kwan, RN) Datetime: 11/05/2016 21:31 NBP Sys/Tonya/Mean (mmHg): 140 (QS system process) : 84 (QS system process) : 105 (QS system process) Pulse: 86 (QS system process) LaborFlag: Antepartum (QS system process) Datetime: 11/05/2016 21:30 Monitor Mode: External (Kim Kwan, RN) Frequency (min): x1 (Kim Kwan, RN) Quality: Mild (Kim Kwan, RN) Duration (sec): 60 (Kim Kwan, RN) Resting Tone (Palpate): Relaxed (Kim Kwan, RN) Monitor Mode: External US (Kim Kwan, RN) FHR Baseline Rate : 135 (Kim Kwan, RN) Variability: Moderate 6-25 bpm (Kim Kwan, RN) Accelerations: None (Kim Kwan, RN) Decelerations: None (Kim Kwan, RN) Datetime: 11/05/2016 21:16 NBP Sys/Tonya/Mean (mmHg): 143 (QS system process) : 87 (QS system process) : 108 (QS system process) Pulse: 87 (QS system process) LaborFlag: Antepartum (QS system process) Datetime: 11/05/2016 21:15 Monitor Mode: External (Kim Kwan, RN) Frequency (min): x1 (Kim Kwan, RN) Quality: Mild (Kim Kwan, RN) Duration (sec): 50 (Kim Kwan, RN) Resting Tone (Palpate): Relaxed (Kim Kwan, RN) Monitor Mode: External US (Kim Kwan, RN) FHR Baseline Rate : 135 (Kim Kwan, RN) Variability: Moderate 6-25 bpm (Kim Kwan, RN) Accelerations: 15X15 (Kim Kwan, RN) Decelerations: None (Kim Kwan, RN) Datetime: 11/05/2016 21:01 NBP Sys/Tonya/Mean (mmHg): 151 (QS system process) : 84 (QS system process) : 113 (QS system process) Pulse: 100 (QS system process) LaborFlag: Antepartum (QS system process) Datetime: 11/05/2016 21:00 Monitor Mode: External (Kim Kwan, RN) Frequency (min): None (Kim Kwan, RN) Resting Tone (Palpate): Relaxed (Kim Kwan, RN) Monitor Mode: External US (Kim Kwan, RN) FHR Baseline Rate : 135 (Kim Kwan, RN) Variability: Moderate 6-25 bpm (Kim Kwan, RN) Accelerations: 15X15 (Kim Kwan, RN) Decelerations: None (Kim Kwan, RN) Level of Consciousness: Fully Conscious (Kim Kwan, RN) DTR's/Clonus: DTRs 2+; No Clonus (Kim Kwan, RN) Headache: Denies (Kim Kwan, RN) Breath Sounds, Left: Clear and Equal (Kim Kwan, RN) Breath Sounds, Right: Clear and Equal (Kim Kwna, RN) Nausea/Vomiting: Denies (Kim Kwan, RN) RUQ Epigastric Pain: Denies (Kim Kwan, RN) Datetime: 11/05/2016 20:47 NBP Sys/Tonya/Mean (mmHg): 150 (QS system process) : 89 (QS system process) : 115 (QS system process) Pulse: 92 (QS system process) LaborFlag: Antepartum (QS system process) Datetime: 11/05/2016 20:45 Monitor Mode: External (Kim Parryl, RN) Frequency (min): None (Kim Kwan, RN) Resting Tone (Palpate): Relaxed (Kim Peraltasel, RN) Monitor Mode: External US (Kim Kwan, RN) FHR Baseline Rate : 140 (Kim Kwan, RN) Variability: Moderate 6-25 bpm (Kim Kwan, RN) Accelerations: 15X15 (Kim Kwan, RN) Decelerations: None (Ikm Kwan, RN) Datetime: 11/05/2016 20:31 NBP Sys/Tonya/Mean (mmHg): 151 (QS system process) : 89 (QS system process) : 115 (QS system process) Pulse: 96 (QS system process) LaborFlag: Antepartum (QS system process) Datetime: 11/05/2016 20:30 Monitor Mode: External (Kim Kwan, RN) Frequency (min): None (Kim Kwan, RN) Quality: Mild (Kim Kwan, RN) Resting Tone (Palpate): Relaxed (Kim Kwan, RN) Monitor Mode: External US (Kim Kwan, RN) FHR Baseline Rate : 130 (Kim Kwan, RN) Variability: Moderate 6-25 bpm (Kim Kwan, RN) Accelerations: 15X15 (Kim Kwan, RN) Decelerations: None (Kim Kwan, RN) Datetime: 11/05/2016 20:18 Patient Care Comments: Pt sitting up, eating (Kim Kwan, RN) Datetime: 11/05/2016 20:16 NBP Sys/Tonya/Mean (mmHg): 145 (QS system process) : 85 (QS system process) : 109 (QS system process) Pulse: 81 (QS system process) LaborFlag: Antepartum (QS system process) Datetime: 11/05/2016 20:15 Monitor Mode: External (Kim Kwan, RN) Frequency (min): None (Kim Kwan, RN) Quality: Mild (Kim Kwan, RN) Resting Tone (Palpate): Relaxed (Kim Kwan, RN) Monitor Mode: External US (Kim Kwan, RN) FHR Baseline Rate : 135 (Kim Kwan, RN) Variability: Moderate 6-25 bpm (Kim Kwan, RN) Accelerations: 15X15 (Kim Kwan, RN) Decelerations: None (Kim Kwan, RN) Datetime: 11/05/2016 20:00 Monitor Mode: External (Kim Kwan, RN) Frequency (min): 4 (Kim Kwan, RN) Quality: Mild (Kim Kwan, RN) Duration (sec): 40-60 (Kim Kwan, RN) Resting Tone (Palpate): Relaxed (Kim Kwan, RN) Monitor Mode: External US (Kim Kwan, RN) FHR Baseline Rate : 135 (Kim Kwan, RN) Variability: Moderate 6-25 bpm (Kim Kwan, RN) Accelerations: 15X15 (Kim Kwan, RN) Decelerations: None (Kim Kwan, RN) Level of Consciousness: Fully Conscious (Kim Kwan, RN) DTR's/Clonus: DTRs 2+; No Clonus (Kmi Kwan, RN) Headache: Denies (Kim Bowens RN) Breath Sounds, Left: Clear and Equal (Kim Bowens RN) Breath Sounds, Right: Clear and Equal (Kim Bowens RN) Nausea/Vomiting: Denies (Kim Bowens RN) RUQ Epigastric Pain: Denies (Kim Bowens RN)
[2016-11-06] MEDS ORDERED: CEFAZOLIN 2 GM/D5W RTU 2 GM/50 ML RTUPB IV ONE (08:53)
[2016-11-06] MEDS ORDERED: CITRIC ACID/SODIUM CITRATE ORAL SOLN 15 ML UDCUP ONE (08:53)
--- NOTE | 2016-11-06 08:59 | L&D Progress Notes ---
PROGRESS NOTES Datetime Report Generated by CPN: 11/06/2016 08:59 PROGRESS NOTE Impression: Gest. HTN/PreEclampsia/Eclampsia Plan: Deliver- Section Informed Consent Obtained: Section Delivery Comment: Reviewed decreasing UO now at 25-40 cc/hr, persistent GALLAGHER, increasing bp, elevated LFTS. DTRS brisk on magnesium. Has had 2 doses steroids....case d/w NICU. Will move to repeat given worsening preeclampsia. VAGINAL EXAM Contractions: irregular FETUS A FHR Category: Category I : 32.3 SIGNATURE SIGNATURE: [id number] Signature: with User ID: [email or web address]
[2016-11-06] MEDS ORDERED: MISOPROSTOL 0.2 MG TABLET ONE (09:08)
[2016-11-06] MEDS ORDERED: MIDAZOLAM 2 MG/2 ML INJ ONE (09:14)
[2016-11-06] MEDS ORDERED: FENTANYL CITRATE INJ/PF 100 MCG/2 ML AMPUL ONE (09:14)
[2016-11-06] MEDS ORDERED: OXYTOCIN 10 UNIT/ML VIAL ONE (09:14)
[2016-11-06] MEDS ORDERED: OXYTOCIN/NORMAL SALINE 20 UNIT/1,000 ML RTUINJ ONE (09:14)
[2016-11-06] MEDS ORDERED: BUPIVACAINE HCL 0.5 % INJ/PF 30 ML SDV ONE (09:19)
--- NOTE | 2016-11-06 10:48 | Operative Report ---
Operative Report DATE OF SURGERY: 11/06/16 Operative Report: Repeat low transverse cervical section PREOPERATIVE DIAGNOSIS: Intrauterine at 32+ weeks with chronic hypertension, superimposed preeclampsia, elevated liver function tests, history of and desire for repeat POSTOPERATIVE DIAGNOSIS: Intrauterine at 32+ weeks with chronic hypertension, superimposed preeclampsia, elevated liver function tests, history section, and desire for repeat OPERATION: Repeat low transverse cervical section SURGEON: BASHIR LOW ANESTHESIA: Spinal TISSUE REMOVED OR ALTERED: Placenta ESTIMATED BLOOD LOSS: 500 mL INTRAOPERATIVE FINDINGS: Erazo male in javier breech presentation. Clear amniotic fluid. Apgars were 3 and 8. Weight is 3 lbs. 11 oz. A true knot was noted in the umbilical cord. Normal uterus, tubes, and ovaries PROCEDURE: After discussing risks benefits and alternatives of the procedure and obtaining informed consent the patient was taken to the operating room where spinal anesthesia was achieved. She was positioned in the dorsal supine position with a leftward tilt. She was then prepped and draped in the usual standard fashion. Pfannenstiel skin incision was made and the abdomen was entered in layers in the usual standard fashion. The C safe knife was used to make a low- transverse hysterotomy incision. The surgeon's hand was entered into the hysterotomy incision and the breech elevated. The breech was delivered to the level of the knees which were then flexed and the legs delivered. The infant was delivered to the level of the shoulders. Each arm was swept down over the anterior chest wall. The head was delivered keeping it in flexion. Nasopharynx and oropharynx were bulb suctioned. Cord was clamped and cut. The was handed to pediatrics who were present. The placenta was manually extracted. The uterus was cleared of all clots and debris. The hysterotomy incision was closed with 0 Monocryl in a running locked fashion. Excellent hemostasis was observed. The uterus tubes and ovaries were returned to the peritoneal cavity. The cavity was irrigated with saline and hemostasis was again assured. [A layer of Interceed was placed in an inverted T fashion over the lower uterine segment and anterior aspect of the uterus.] Peritoneum was closed with 2-0 Vicryl in a pursestring fashion. Rectus muscles were loosely reapproximated with interrupted stitches of 2-0 Vicryl. The subfascial space was inspected and noted to be hemostatic. The fascia was closed with #1 Vicryl. [The subcutaneous tissues were irrigated and hemostasis assured. 3-O plain gut was used to reapproximate the subcutaneous space which was quite thick.] The skin was closed in a subcuticular fashion with 4-0 Monocryl. An OpSite dressing was applied. Cytotec 1000 g was placed per rectum to keep the uterus contracted when magnesium seizure prophylaxis was resumed. The patient was taken to recovery in stable condition. All sponge needle lap and instrument counts were correct correct x2.
[2016-11-06] MEDS ORDERED: ACETAMINOPHEN 100 ML IV ONE ×2 (10:52→15:00)
[2016-11-06] MEDS ORDERED: LABETALOL HCL 200 MG TABLET ONE ×2 (11:01→21:08)
[2016-11-06] MEDS ORDERED: MEASLES,MUMPS&RUBELLA VACC/PF 0.5 ML VIAL SUBCUT PRN (13:16)
[2016-11-06] MEDS ORDERED: SIMETHICONE 80 MG TAB.CHEW PO PRN (13:16)
[2016-11-06] MEDS ORDERED: DIPH/PERTUSS(ACELL)/TETANUS VAC/PF 0.5 ML SYR (>=10YO) IM PRN (13:16)
[2016-11-06] MEDS ORDERED: OXYCODONE-ACETAMINOPHEN 5-325 MG TABLET PO PRN ×2 (13:16)
[2016-11-06] MEDS ORDERED: HYDROCODONE/ACETAMINOPHEN 5-325 MG TABLET ONE (13:29)
[2016-11-06] MEDS ORDERED: OXYCODONE-ACETAMINOPHEN 5-325 MG TABLET ONE (13:30)
[2016-11-06] MEDS ORDERED: ONDANSETRON HCL INJ/PF 4 MG/2 ML SDV IV PRN (13:41)
[2016-11-06] MEDS ORDERED: ONDANSETRON 4 MG TAB.RAPDIS PO PRN (13:42)
[2016-11-06] MEDS ORDERED: HYDROMORPHONE HCL INJ/PF 2 MG/ML AMPULE IV PRN (13:45)
[2016-11-06] MEDS ORDERED: OXYCODONE HCL IR 5 MG TABLET PO PRN (13:53)
--- NOTE | 2016-11-06 14:42 | Delivery Summary ---
Del Sum A-C Datetime Report Generated by CPN: 11/06/2016 14:42 ADMISSION DATA Chief Complaint: Other Chief Complaint Comments: Elevated blood pressure 160/103, elevated liver enzymes Indication for Induction: Other Admission Impression: Observation/Evaluation Admission Impression Comments: Plan discussed with [facility]. will admit Mg, steroids and section in two days if stable. Admit Provider Comments: Pt sent from [facility]. Elevated blood pressure in the office 160/103. They recomend steroids, MgSO4, and delivery in 48 hours if stable. Delivery sooner if not stable. DELIVERY PERSONNEL Delivery Doctor:: Jena Estrella MD Anesthesiologist:: Doyle Lacy MD FUEL YARD OPERATOR:: Brandy Labor and Delivery Nurse:: Rita Dwyer RN Loft Worker Apprentice:: Dakotah Sethi MD Nursery Nurse:: Laurence Montoya RN Student Observers:: Jacqueline Verma, Miguel Mcwilliams, Stefany Silvestre, Arthur Chandra Respiratory Assistant/FRENCH CORD BINDER: ST Messi Respiratory Assistant/FRENCH CORD BINDER: Delores Dueñas CST MATERNAL INFORMATION Delivery Anesthesia: Spinal Medications After Delivery: Pitocin Bolus-Please Comment; Pitocin Drip 20 Units/1000ml NSS Meds After Delivery Comment: 20 units Pitocin in 1 L NS Estimated Blood Loss (ml): 500 Maternal Complications: Other Other Maternal Complications: severe pre-eclampsia LABOR SUMMARY EDC: 12/28/2016 00:00 No. Babies in Womb: 1 Attempted: No Labor Anesthesia: None LABOR INFORMATION Reason for Induction: Not Applicable Oxytocin: N/A Group B Beta Strep: UNKNOWN Antibiotics # of Doses: 1 Name of Antibiotic Given: ANCEF Steroids Given: Full Course; < 24 Hours before Delivery Reason Steroids Not Administered: Not Applicable MEMBRANES Membranes Rupture Method: Artificial Rupture of Membranes: 11/06/2016 09:49 Length of Rupture (hr): 0.02 Amniotic Fluid Color: Clear Amniotic Fluid Amount: Moderate Amniotic Fluid Odor: Normal STAGES OF LABOR Stage 3 hr: 0 Stage 3 min: 1 VAGINAL DELIVERY Episiotomy: None Laceration Extension: N/A Laceration Type: None Laceration Repair: Not Applicable Sponge Count Correct: N/A Sharps Count Correct: N/A CSECTION DELIVERY Primary Indication: Other Other Primary Indication: SEVERE PRE-ECLAMPSIA Secondary Indication: N/A CSection Urgency: Non-Scheduled CSection Incidence: Repeat Labor: N/A Elective: N/A CSection Incision: Lower Uterine Transverse BABY A INFORMATION Delivery Date/Time: 11/06/2016 09:50 Method of Delivery: Born in Route : No : N/A Forceps: N/A Vacuum Extraction: N/A Shoulder Dystocia : No PRESENTATION/POSITION BABY A Presentation: Breech Cephalic Presentation: N/A Breech Presentation: N/A PLACENTA INFORMATION BABY A Placenta Delivery Time : 11/06/2016 09:51 Placenta Method of Delivery: Expressed Placenta Status: Delivered SCORES BABY A Heart Rate 1 min: >100 bpm Resp Effort 1 min: Slow, Irregular Reflex Irritability 1 min: No Response Muscle Tone 1 min: Flaccid Color 1 min: Blue/Pale SCORE 1 MIN: 3 Heart Rate 5 min: >100 bpm Resp Effort 5 min: Good Cry Reflex Irritability 5 min: Cough or Sneeze or Pulls Away Muscle Tone 5 min: Some Flexion of Extremities Color 5 min: Body [place], Extremities Blue SCORE 5 MIN: 8 INFANT INFORMATION BABY A Gestational Age at Delivery: 32.4 Gestational Status: - <34 Weeks Infant Outcome : Liveborn Infant Condition : Stable Infant Sex: Male IDENTIFICATION BABY A ID Band Number: [id number] Mother's Name Verified: Yes RN Verifying : Yue Dwyer, RN, Flash Wilson, RN WEIGHT/LENGTH BABY A Infant Birthweight (gm): 1664 Weight (lb): 3 Infant Weight (oz): 11 Length (in): 17.50 Infant Length (cm): 44.45 CORD INFORMATION BABY A No. Cord Vessels: 3 Nuchal Cord : N/A True Knot: 1 Cord Blood Taken: Yes-For Storage (Mom's Blood type +) Suction: Mouth; Nose ASSESSMENT BABY A Skin to Skin: No Skin to Skin Time (min): 0 BABY B INFORMATION : N/A
[2016-11-06] MEDS ORDERED: DOCUSATE SODIUM 100 MG CAPSULE ONE (17:25)
[2016-11-06] MEDS: DOCUSATE SODIUM 100 MG CAPSULE PO SCH (17:26)
[2016-11-06] MEDS: HYDROMORPHONE HCL INJ/PF 2 MG/ML AMPULE IV PRN ×2 (17:27→20:06)
[2016-11-06 18:19] LABS: HEMATOCRIT 33.6 % (36.0-47.0); HEMOGLOBIN 11.3 g/dL (12.0-15.5); HGB HCT DIFFERENCE 0.3; MEAN CORPUSCULAR HEMOGLOBIN 31.4 pg (27.0-33.4); MEAN CORPUSCULAR HGB CONC 33.6 g/dL (32.0-36.0); MEAN CORPUSCULAR VOLUME 94 fl (80-97); RED BLOOD COUNT 3.59 10^6/uL (3.72-5.28)
[2016-11-06 18:42] LABS: WHITE BLOOD COUNT 14.3 10^3/uL (4.0-10.5)
[2016-11-06 18:44] LABS: ALANINE AMINOTRANSFERASE 103 U/L (9-52); ALBUMIN 2.9 g/dL (3.5-5.0); ALKALINE PHOSPHATASE 62 U/L (38-126); ANION GAP 9 (5-19); ASPARTATE AMINO TRANSFERASE 74 U/L (14-36); BILIRUBIN,DIRECT 0.1 mg/dL (0.0-0.4); BILIRUBIN,TOTAL 0.3 mg/dL (0.2-1.3); BLOOD UREA NITROGEN 7 mg/dL (7-20); CALCIUM 7.3 mg/dL (8.4-10.2); CARBON DIOXIDE 20 mmol/L (22-30); CHLORIDE 105 mmol/L (98-107); GLUCOSE 119 mg/dL (75-110); LDH 457 U/L (313-618); POTASSIUM 4.3 mmol/L (3.6-5.0); SODIUM 133.6 mmol/L (137-145); TOTAL PROTEIN 5.6 g/dL (6.3-8.2); URIC ACID 4.7 mg/dL (2.5-6.2)
[2016-11-06 18:46] LABS: BASOPHILS % (MANUAL) 0 % (0-2); EOSINOPHILS % (MANUAL) 0 % (0-6); LYMPHOCYTES % (MANUAL) 4 % (13-45); PLATELET CLUMPS PRESENT; TOTAL CELLS COUNTED 100
[2016-11-06 18:47] LABS: SMUDGE CELLS PRESENT
--- NOTE | 2016-11-06 20:01 | L&D Flow Sheet ---
LD Flowsheet Datetime Report Generated by CPN: 11/06/2016 20:00 Datetime: 11/06/2016 19:57 NBP Sys/Tonya/Mean (mmHg): 144 (QS system process) : 89 (QS system process) : 110 (QS system process) Pulse: 74 (QS system process) Datetime: 11/06/2016 19:42 NBP Sys/Tonya/Mean (mmHg): 139 (QS system process) : 79 (QS system process) : 104 (QS system process) Pulse: 79 (QS system process) Datetime: 11/06/2016 19:27 NBP Sys/Tonya/Mean (mmHg): 139 (QS system process) : 73 (QS system process) : 100 (QS system process) Pulse: 74 (QS system process) Datetime: 11/06/2016 19:17 Magnesium/Antihypertensives: Magnesium Sulfate IV (Gm/hr) @ 2 (Rita Reymundo, RN) Datetime: 11/06/2016 19:15 Communication Comments: report given to J. Field, RN. Care relinquished (Rita Dwyer RN) Datetime: 11/06/2016 19:12 NBP Sys/Tonya/Mean (mmHg): 161 (QS system process) : 82 (QS system process) : 113 (QS system process) Pulse: 81 (QS system process) Datetime: 11/06/2016 19:00 Level of Consciousness: Fully Conscious (Rita Dwyer RN) DTR's/Clonus: DTRs 2+; No Clonus (Rita Dwyer RN) Headache: Denies (Rita Dwyer RN) Breath Sounds, Left: Clear and Equal (Rita Dwyer RN) Breath Sounds, Right: Clear and Equal (Rita Dwyer RN) Nausea/Vomiting: Denies (Rita Dwyer RN) RUQ Epigastric Pain: Denies (Rita Dwyer RN) Datetime: 11/06/2016 18:57 NBP Sys/Tonya/Mean (mmHg): 142 (QS system process) : 79 (QS system process) : 105 (QS system process) Pulse: 77 (QS system process) Datetime: 11/06/2016 18:42 NBP Sys/Tonya/Mean (mmHg): 153 (QS system process) : 85 (QS system process) : 115 (QS system process) Pulse: 77 (QS system process) Datetime: 11/06/2016 18:27 NBP Sys/Tonya/Mean (mmHg): 153 (QS system process) : 86 (QS system process) : 113 (QS system process) Pulse: 76 (QS system process) Datetime: 11/06/2016 18:00 Level of Consciousness: Fully Conscious (Rita Dwyer, RN) DTR's/Clonus: DTRs 2+; No Clonus (Rita Dwyer, RN) Headache: Denies (Rita Dwyer, RN) Breath Sounds, Left: Clear and Equal (Rita Dwyer RN) Breath Sounds, Right: Clear and Equal (Rita Dwyer, RN) Nausea/Vomiting: Denies (Rita Dwyer, RN) RUQ Epigastric Pain: Denies (Rita Dwyer, RN) Datetime: 11/06/2016 17:42 NBP Sys/Tonya/Mean (mmHg): 147 (QS system process) : 84 (QS system process) : 109 (QS system process) Pulse: 85 (QS system process) Datetime: 11/06/2016 17:27 NBP Sys/Tonya/Mean (mmHg): 141 (QS system process) : 82 (QS system process) : 106 (QS system process) Pulse: 81 (QS system process) Analgesics/Sedatives: Dilaudid (mg) @ 2 (Rita Dwyer RN) Medication Comments: Colace 100 mg PO (Rita Dwyer RN) Datetime: 11/06/2016 17:12 NBP Sys/Tonya/Mean (mmHg): 132 (QS system process) : 75 (QS system process) : 97 (QS system process) Pulse: 70 (QS system process) Datetime: 11/06/2016 17:00 Level of Consciousness: Fully Conscious (Rita Dwyer RN) DTR's/Clonus: DTRs 2+; No Clonus (Rita Dwyer RN) Headache: Denies (Rita Reymundo, RN) Breath Sounds, Left: Clear and Equal (Rita Dwyer, RN) Breath Sounds, Right: Clear and Equal (Rita Dwyer, RN) Nausea/Vomiting: Denies (Rita Dwyer, RN) RUQ Epigastric Pain: Denies (Rita Dwyer, RN) Datetime: 11/06/2016 16:57 NBP Sys/Tonya/Mean (mmHg): 138 (QS system process) : 81 (QS system process) : 102 (QS system process) Pulse: 79 (QS system process) Datetime: 11/06/2016 16:42 NBP Sys/Tonya/Mean (mmHg): 141 (QS system process) : 79 (QS system process) : 104 (QS system process) Pulse: 76 (QS system process) Datetime: 11/06/2016 16:27 NBP Sys/Tonya/Mean (mmHg): 143 (QS system process) : 80 (QS system process) : 105 (QS system process) Pulse: 73 (QS system process) Datetime: 11/06/2016 16:20 Communication Comments: abdominal binder applied per Dr. Neilsen order (Rita Reymundo, RN) Datetime: 11/06/2016 16:12 NBP Sys/Tonya/Mean (mmHg): 136 (QS system process) : 77 (QS system process) : 101 (QS system process) Pulse: 75 (QS system process) Datetime: 11/06/2016 16:05 Magnesium/Antihypertensives: Magnesium Sulfate IV (Gm/hr) @ 2 (Rita Dwyer, MARBELLA) Medication Comments: New magnesium bag hung (Rita Dwyer, RN) Datetime: 11/06/2016 16:00 Level of Consciousness: Fully Conscious (Rita Dwyer, RN) DTR's/Clonus: DTRs 2+; No Clonus (Rita Dwyer, RN) Headache: Denies (Rita Dwyer, RN) Breath Sounds, Left: Clear and Equal (Rita Dwyer, RN) Breath Sounds, Right: Clear and Equal (Rita Dwyer, RN) Nausea/Vomiting: Denies (Rita Dwyer, RN) RUQ Epigastric Pain: Denies (Rita Dwyer, RN) Datetime: 11/06/2016 15:57 NBP Sys/Tonya/Mean (mmHg): 134 (QS system process) : 75 (QS system process) : 99 (QS system process) Pulse: 81 (QS system process) Datetime: 11/06/2016 15:42 NBP Sys/Tonya/Mean (mmHg): 137 (QS system process) : 76 (QS system process) : 102 (QS system process) Pulse: 72 (QS system process) Datetime: 11/06/2016 15:27 NBP Sys/Tonya/Mean (mmHg): 143 (QS system process) : 78 (QS system process) : 106 (QS system process) Pulse: 78 (QS system process) Datetime: 11/06/2016 15:12 NBP Sys/Tonya/Mean (mmHg): 142 (QS system process) : 92 (QS system process) : 113 (QS system process) Pulse: 69 (QS system process) Datetime: 11/06/2016 15:00 Level of Consciousness: Fully Conscious (Rita Dwyer, RN) DTR's/Clonus: DTRs 2+; No Clonus (Rita Dwyer, RN) Headache: Denies (Rita Dwyer, RN) Breath Sounds, Left: Clear and Equal (Rita Dwyer, RN) Breath Sounds, Right: Clear and Equal (Ritaemani Dwyer, RN) Nausea/Vomiting: Denies (Rita Dwyer, RN) RUQ Epigastric Pain: Denies (Rita Reymundo, RN) Datetime: 11/06/2016 14:57 NBP Sys/Tonya/Mean (mmHg): 138 (QS system process) : 85 (QS system process) : 107 (QS system process) Pulse: 88 (QS system process) Datetime: 11/06/2016 14:42 NBP Sys/Tonya/Mean (mmHg): 144 (QS system process) : 85 (QS system process) : 109 (QS system process) Pulse: 76 (QS system process) Datetime: 11/06/2016 14:32 Analgesics/Sedatives: Dilaudid (mg) @ 1 (Rita Reymundo, RN) Datetime: 11/06/2016 14:27 NBP Sys/Tonya/Mean (mmHg): 134 (QS system process) : 77 (QS system process) : 99 (QS system process) Pulse: 69 (QS system process) Datetime: 11/06/2016 14:12 NBP Sys/Tonya/Mean (mmHg): 141 (QS system process) : 82 (QS system process) : 107 (QS system process) Pulse: 72 (QS system process) Datetime: 11/06/2016 14:00 Level of Consciousness: Fully Conscious (Rita Dwyer RN) DTR's/Clonus: DTRs 2+; No Clonus (Rita Dwyer RN) Headache: Denies (Rita Dwyer RN) Breath Sounds, Left: Clear and Equal (Rita Dwyer RN) Breath Sounds, Right: Clear and Equal (Rita Dwyer RN) Nausea/Vomiting: Denies (Rita Dwyer RN) RUQ Epigastric Pain: Denies (Rita Dwyer RN) Datetime: 11/06/2016 13:42 NBP Sys/Tonya/Mean (mmHg): 135 (QS system process) : 86 (QS system process) : 106 (QS system process) Pulse: 71 (QS system process) Datetime: 11/06/2016 13:29 Medication Comments: Oxycodone 5/325 (Rita Reymundo, RN) Datetime: 11/06/2016 13:27 NBP Sys/Tonya/Mean (mmHg): 142 (QS system process) : 82 (QS system process) : 106 (QS system process) Pulse: 66 (QS system process) Datetime: 11/06/2016 13:12 NBP Sys/Tonya/Mean (mmHg): 136 (QS system process) : 86 (QS system process) : 106 (QS system process) Pulse: 70 (QS system process) Datetime: 11/06/2016 13:00 Stage of : Recovery (Rita Dwyer RN) Level of Consciousness: Fully Conscious (Rita Dwyer RN) DTR's/Clonus: DTRs 2+; No Clonus (iRta Dwyer RN) Headache: Denies (Rita Dwyer RN) Breath Sounds, Left: Clear and Equal (Rita Dwyer RN) Breath Sounds, Right: Clear and Equal (Rita Dwyer RN) Nausea/Vomiting: Denies (Rita Dwyer RN) RUQ Epigastric Pain: Denies (Rita Dwyer RN) Magnesium/Antihypertensives: Magnesium Sulfate IV (Gm/hr) @ 2 (Rita Dwyer RN) Datetime: 11/06/2016 12:57 NBP Sys/Tonya/Mean (mmHg): 150 (QS system process) : 91 (QS system process) : 114 (QS system process) Pulse: 62 (QS system process) Datetime: 11/06/2016 12:42 NBP Sys/Tonya/Mean (mmHg): 134 (QS system process) : 81 (QS system process) : 103 (QS system process) Pulse: 65 (QS system process) Datetime: 11/06/2016 12:34 NBP Sys/Tonya/Mean (mmHg): 136 (QS system process) : 89 (QS system process) : 109 (QS system process) Pulse: 66 (QS system process) Datetime: 11/06/2016 12:31 Pulse: 64 (QS system process) SpO2 (%): 99 (QS system process) Datetime: 11/06/2016 12:26 Pulse: 61 (QS system process) SpO2 (%): 99 (QS system process) Datetime: 11/06/2016 12:21 Pulse: 60 (QS system process) SpO2 (%): 97 (QS system process) Datetime: 11/06/2016 12:19 NBP Sys/Tonya/Mean (mmHg): 142 (QS system process) : 84 (QS system process) : 105 (QS system process) Pulse: 56 (QS system process) Datetime: 11/06/2016 12:16 Pulse: 59 (QS system process) SpO2 (%): 98 (QS system process) Datetime: 11/06/2016 12:11 Pulse: 61 (QS system process) SpO2 (%): 99 (QS system process) Datetime: 11/06/2016 12:06 Pulse: 64 (QS system process) SpO2 (%): 98 (QS system process) Datetime: 11/06/2016 12:04 NBP Sys/Tonya/Mean (mmHg): 148 (QS system process) : 93 (QS system process) : 114 (QS system process) Pulse: 73 (QS system process) Datetime: 11/06/2016 12:01 Pulse: 63 (QS system process) SpO2 (%): 97 (QS system process) Datetime: 11/06/2016 11:56 Pulse: 65 (QS system process) SpO2 (%): 99 (QS system process) Datetime: 11/06/2016 11:51 Pulse: 62 (QS system process) SpO2 (%): 99 (QS system process) Datetime: 11/06/2016 11:49 NBP Sys/Tonya/Mean (mmHg): 138 (QS system process) : 85 (QS system process) : 105 (QS system process) Pulse: 62 (QS system process) Datetime: 11/06/2016 11:46 Pulse: 67 (QS system process) SpO2 (%): 99 (QS system process) Datetime: 11/06/2016 11:41 Pulse: 64 (QS system process) SpO2 (%): 98 (QS system process) Datetime: 11/06/2016 11:36 Pulse: 69 (QS system process) SpO2 (%): 98 (QS system process) Datetime: 11/06/2016 11:34 NBP Sys/Tonya/Mean (mmHg): 156 (QS system process) : 93 (QS system process) : 116 (QS system process) Pulse: 68 (QS system process) Datetime: 11/06/2016 11:31 Pulse: 67 (QS system process) SpO2 (%): 98 (QS system process) Datetime: 11/06/2016 11:26 Pulse: 75 (QS system process) SpO2 (%): 99 (QS system process) Datetime: 11/06/2016 11:21 Pulse: 74 (QS system process) SpO2 (%): 98 (QS system process) Datetime: 11/06/2016 11:19 NBP Sys/Tonya/Mean (mmHg): 139 (QS system process) : 88 (QS system process) : 108 (QS system process) Pulse: 62 (QS system process) Datetime: 11/06/2016 11:16 Pulse: 61 (QS system process) SpO2 (%): 97 (QS system process) Datetime: 11/06/2016 11:11 Pulse: 72 (QS system process) SpO2 (%): 97 (QS system process) Datetime: 11/06/2016 11:06 Pulse: 62 (QS system process) SpO2 (%): 96 (QS system process) Datetime: 11/06/2016 11:04 NBP Sys/Tonya/Mean (mmHg): 149 (QS system process) : 89 (QS system process) : 112 (QS system process) Pulse: 72 (QS system process) Datetime: 11/06/2016 11:01 Pulse: 82 (QS system process) SpO2 (%): 97 (QS system process) Datetime: 11/06/2016 10:59 Stage of : Recovery (Rita Dwyer, MARBELLA) Level of Consciousness: Fully Conscious (Rita Dwyer, RN) DTR's/Clonus: DTRs 2+; No Clonus (Rita Dwyer, RN) Headache: Denies (Rita Dwyer, RN) Breath Sounds, Left: Clear and Equal (Rita Dwyer RN) Breath Sounds, Right: Clear and Equal (Rita Dwyer, RN) Nausea/Vomiting: Denies (Rita Dwyer, RN) RUQ Epigastric Pain: Denies (Rita Dwyer, RN) Datetime: 11/06/2016 10:56 Pulse: 71 (QS system process) SpO2 (%): 97 (QS system process) Datetime: 11/06/2016 10:51 Pulse: 68 (QS system process) SpO2 (%): 97 (QS system process) Datetime: 11/06/2016 10:49 NBP Sys/Tonya/Mean (mmHg): 145 (QS system process) : 85 (QS system process) : 109 (QS system process) Pulse: 68 (QS system process) Datetime: 11/06/2016 10:46 Pulse: 71 (QS system process) SpO2 (%): 97 (QS system process) Datetime: 11/06/2016 10:45 Pain Scale: 0 (Rita Dwyer, RN) Pain Presence: None/Denies (Rita Dwyer, RN) Pain Type: N/A (Rita Dweyr, RN) Pain Goal: 1 (Rita Dwyer, RN) Pain Relief Measures: Comfort Measures (Rita Dwyer, RN) Datetime: 11/06/2016 10:42 NBP Sys/Tonya/Mean (mmHg): 136 (QS system process) : 81 (QS system process) : 103 (QS system process) Pulse: 63 (QS system process) Datetime: 11/06/2016 10:41 Stage of : Recovery (Rita Dwyer RN) Pulse: 69 (QS system process) SpO2 (%): 98 (QS system process) Datetime: 11/06/2016 10:28 Stage of : Recovery (Rita Dwyer RN) Communication Comments: Cytotec 1000 mg DE (Rita Dwyer RN) Datetime: 11/06/2016 09:15 Monitor Mode: External; Palpation (Rita Dwyer RN) Frequency (min): x2 (Rita Dwyer RN) Quality: Mild (Rita Dwyer RN) Duration (sec): 60-70 (Rita Dwyer RN) Duration Criteria: Less than Two 120 Second Contractions (Rita Dwyer RN) Pattern: Normal: <= 5 Contractions in 10 Minutes (Rita Dwyer RN) Resting Tone (Palpate): Relaxed (Rita Dwyer RN) Monitor Mode: External US (Rita Dwyer RN) FHR Baseline Rate : 120 (Rita Dwyer, RN) FHR Baseline Changes: No Baseline Change (Rita Dwyer, MARBELLA) Variability: Moderate 6-25 bpm (Rita Dwyer, RN) Accelerations: 15X15 (Rita Dwyer, RN) Decelerations: None (Rita Dwyer, RN) Communication Comments: Ancef [address] Estrella order (Rita Dwyer, MARBELLA) Datetime: 11/06/2016 09:00 Monitor Mode: External; Palpation (Rita Dwyer, MARBELLA) Frequency (min): x1 (Rita Dwyer, MARBELLA) Quality: Mild (Rita Dwyer, MARBELLA) Duration (sec): 60 (Rita Dwyer, MARBELLA) Duration Criteria: Less than Two 120 Second Contractions (Rita Dwyer, MARBELLA) Pattern: Normal: <= 5 Contractions in 10 Minutes (Rita Dwyer, MARBELLA) Resting Tone (Palpate): Relaxed (Rita Dwyer, MARBELLA) Monitor Mode: External US (Rita Dwyer, MARBELLA) FHR Baseline Rate : 120 (Rita Dwyer, RN) FHR Baseline Changes: No Baseline Change (Rita Dwyer, MARBELLA) Variability: Moderate 6-25 bpm (Rita Dwyer, RN) Accelerations: 10X10 (Rita Dwyer, RN) Decelerations: None (Rita Dwyer, RN) Communication Comments: Bicitra 15 mL PO (Rita Dwyer, MARBELLA) Datetime: 11/06/2016 08:59 Communication Comments: Magnesium discontinued per Dr. 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 Estrella (Rita Dwyer, MARBELLA) Datetime: 11/06/2016 08:45 Monitor Mode: External; Palpation (Rita Dwyer, RN) Frequency (min): x2 (Rita Dwyer, RN) Quality: Mild (Rita Dwyer, RN) Duration (sec): 60-70 (Rita Dwyer, RN) Duration Criteria: Less than Two 120 Second Contractions (Rita Dwyer, RN) Pattern: Normal: <= 5 Contractions in 10 Minutes (Rita Dwyer, RN) Resting Tone (Palpate): Relaxed (Rita Dwyer, RN) Monitor Mode: External US (Rita Dwyer, RN) FHR Baseline Rate : 120 (Rita Dwyer, RN) FHR Baseline Changes: No Baseline Change (Rita Dwyer, RN) Variability: Moderate 6-25 bpm (Rita Dwyer, RN) Accelerations: None (Rita Dwyer, RN) Decelerations: None (Rita Dwyer, RN) Datetime: 11/06/2016 08:30 Monitor Mode: External; Palpation (Rita Dwyer, RN) Frequency (min): x2 (Rita Dwyer, RN) Quality: Mild (Rita Dwyer, RN) Duration (sec): 70-80 (Rita Dwyer, RN) Duration Criteria: Less than Two 120 Second Contractions (Rita Dwyer, RN) Pattern: Normal: <= 5 Contractions in 10 Minutes (Rita Dwyer, RN) Resting Tone (Palpate): Relaxed (Rita Dwyer, RN) Monitor Mode: External US (Rita Dwyer, RN) FHR Baseline Rate : 120 (Rita Dwyer, RN) FHR Baseline Changes: No Baseline Change (Rita Dwyer, RN) Variability: Moderate 6-25 bpm (Rita Dwyer, RN) Accelerations: 10X10 (Rita Dwyer, RN) Decelerations: None (Rita Dwyer, RN) Datetime: 11/06/2016 08:27 NBP Sys/Tonya/Mean (mmHg): 162 (QS system process) : 87 (QS system process) : 116 (QS system process) Pulse: 75 (QS system process) LaborFlag: Antepartum (QS system process) Datetime: 11/06/2016 08:15 Monitor Mode: External; Palpation (Rita Dwyer, RN) Frequency (min): x2 (Rita Dwyer, RN) Quality: Mild (Rita Reymundo, RN) Duration (sec): 60 (Rita Reymundo, RN) Duration Criteria: Less than Two 120 Second Contractions (Rita Reymundo, RN) Pattern: Normal: <= 5 Contractions in 10 Minutes (Rita Reymundo, RN) Resting Tone (Palpate): Relaxed (Rita Dwyer, RN) Monitor Mode: External US (Rita Dwyer, RN) FHR Baseline Rate : 120 (Rita Reymundo, RN) FHR Baseline Changes: No Baseline Change (Rita Reymundo, RN) Variability: Moderate 6-25 bpm (Rita Reymundo, RN) Accelerations: 15X15 (Rita Reymundo, RN) Decelerations: None (Rita Reymundo, RN) Datetime: 11/06/2016 08:00 Monitor Mode: External; Palpation (Rita Dwyer, RN) Frequency (min): x1 (Rita Dwyer, RN) Quality: Mild (Rita Reymundo, RN) Duration (sec): 70 (Rita Reymundo, RN) Duration Criteria: Less than Two 120 Second Contractions (Rita Reymundo, RN) Pattern: Normal: <= 5 Contractions in 10 Minutes (Rita Dwyer, RN) Resting Tone (Palpate): Relaxed (Rita Dwyer, RN) Monitor Mode: External US (Rita Dwyer RN) FHR Baseline Rate : 120 (Rita Dwyer RN) FHR Baseline Changes: No Baseline Change (Rita Dwyer RN) Variability: Moderate 6-25 bpm (Rita Dwyer RN) Accelerations: 10X10 (Rita Dwyer RN) Decelerations: None (Rita Dwyer RN) Level of Consciousness: Fully Conscious (Rita Dwyer RN) DTR's/Clonus: DTRs 2+; No Clonus (Rita Dwyer RN) Headache: Denies (Rita Dwyer RN) Breath Sounds, Left: Clear and Equal (iRta Dwyer RN) Breath Sounds, Right: Clear and Equal (Rita Dwyer RN) Nausea/Vomiting: Denies (Rita Dwyer RN) RUQ Epigastric Pain: Denies (Rita Dwyer RN) Datetime: 11/06/2016 07:56 LaborFlag: Antepartum (QS system process) Datetime: 11/06/2016 07:45 Monitor Mode: External; Palpation (Rita Dwyer RN) Frequency (min): x2 (Rita Reymundo, RN) Quality: Mild (Rita Dwyer, RN) Duration (sec): 60-80 (Rita Dwyer, RN) Duration Criteria: Less than Two 120 Second Contractions (Rita Dwyer, RN) Pattern: Normal: <= 5 Contractions in 10 Minutes (Rita Dwyer, RN) Resting Tone (Palpate): Relaxed (Rita Dwyer, RN) Monitor Mode: External US (Rita Dwyer, RN) FHR Baseline Rate : 120 (Rita Dwyer, RN) FHR Baseline Changes: No Baseline Change (Rita Dwyer, RN) Variability: Moderate 6-25 bpm (Rita Reymundo, RN) Accelerations: None (Rita Dwyer, RN) Decelerations: None (Rita Dwyer, RN) Datetime: 11/06/2016 07:30 Monitor Mode: External; Palpation (Rita Dwyer, RN) Frequency (min): x2 (Rita Dwyer, RN) Quality: Mild (Rita Dwyer, RN) Duration (sec): 70-80 (Rita Dwyer, RN) Duration Criteria: Less than Two 120 Second Contractions (Rita Dwyer, RN) Pattern: Normal: <= 5 Contractions in 10 Minutes (Rita Dwyer, RN) Resting Tone (Palpate): Relaxed (Rita Dwyer, RN) Monitor Mode: External US (Rita Dwyer, RN) FHR Baseline Rate : 120 (Rita Dwyer, RN) FHR Baseline Changes: No Baseline Change (Rita Dwyer, RN) Variability: Moderate 6-25 bpm (Rita Reymundo, RN) Accelerations: None (Rita Reymundo, RN) Decelerations: None (Ritaemani Dwyer, RN) Datetime: 11/06/2016 07:26 LaborFlag: Antepartum (QS system process) Datetime: 11/06/2016 07:15 Monitor Mode: External; Palpation (Rita Dwyer, RN) Frequency (min): x1 (Rita Dwyer, RN) Quality: Mild (Rita Dwyer, RN) Duration (sec): 80 (Rita Dwyer, RN) Duration Criteria: Less than Two 120 Second Contractions (Rita Dwyer, RN) Pattern: Normal: <= 5 Contractions in 10 Minutes (Rita Dwyer, RN) Resting Tone (Palpate): Relaxed (Rita Dwyer, RN) Monitor Mode: External US (Rita Dwyer, RN) FHR Baseline Rate : 120 (Rita Dwyer, RN) FHR Baseline Changes: No Baseline Change (Rita Dwyer, RN) Variability: Moderate 6-25 bpm (Rita Dwyer, RN) Accelerations: None (Rita Dwyer, RN) Decelerations: None (Rita Dwyer, RN) Datetime: 11/06/2016 06:56 LaborFlag: Antepartum (QS system process) Datetime: 11/06/2016 06:26 LaborFlag: Antepartum (QS system process) Datetime: 11/06/2016 05:56 LaborFlag: Antepartum (QS system process) Datetime: 11/06/2016 05:26 LaborFlag: Antepartum (QS system process) Datetime: 11/06/2016 05:00 LaborFlag: Antepartum (QS system process) Datetime: 11/06/2016 04:56 LaborFlag: Antepartum (QS system process) Datetime: 11/06/2016 04:26 LaborFlag: Antepartum (QS system process) Datetime: 11/06/2016 03:56 LaborFlag: Antepartum (QS system process) Datetime: 11/06/2016 03:26 LaborFlag: Antepartum (QS system process) Datetime: 11/06/2016 02:56 LaborFlag: Antepartum (QS system process) Datetime: 11/06/2016 02:26 LaborFlag: Antepartum (QS system process) Datetime: 11/06/2016 01:56 LaborFlag: Antepartum (QS system process) Datetime: 11/06/2016 01:26 LaborFlag: Antepartum (QS system process) Datetime: 11/06/2016 00:56 LaborFlag: Antepartum (QS system process) Datetime: 11/06/2016 00:26 LaborFlag: Antepartum (QS system process) Datetime: 11/05/2016 23:46 LaborFlag: Antepartum (QS system process) Datetime: 11/05/2016 23:31 LaborFlag: Antepartum (QS system process) Datetime: 11/05/2016 23:16 LaborFlag: Antepartum (QS system process) Datetime: 11/05/2016 23:01 LaborFlag: Antepartum (QS system process) Datetime: 11/05/2016 22:46 LaborFlag: Antepartum (QS system process) Datetime: 11/05/2016 22:31 LaborFlag: Antepartum (QS system process) Datetime: 11/05/2016 22:16 LaborFlag: Antepartum (QS system process) Datetime: 11/05/2016 22:01 LaborFlag: Antepartum (QS system process) Datetime: 11/05/2016 21:46 LaborFlag: Antepartum (QS system process) Datetime: 11/05/2016 21:31 LaborFlag: Antepartum (QS system process) Datetime: 11/05/2016 21:16 LaborFlag: Antepartum (QS system process) Datetime: 11/05/2016 21:01 LaborFlag: Antepartum (QS system process) Datetime: 11/05/2016 20:47 LaborFlag: Antepartum (QS system process) Datetime: 11/05/2016 20:31 LaborFlag: Antepartum (QS system process) Datetime: 11/05/2016 20:16 LaborFlag: Antepartum (QS system process) Datetime: 11/05/2016 19:47 LaborFlag: Antepartum (QS system process) Datetime: 11/05/2016 19:31 LaborFlag: Antepartum (QS system process) Datetime: 11/05/2016 19:16 LaborFlag: Antepartum (QS system process) Datetime: 11/05/2016 19:01 LaborFlag: Antepartum (QS system process) Datetime: 11/05/2016 18:47 LaborFlag: Antepartum (QS system process) Datetime: 11/05/2016 18:31 LaborFlag: Antepartum (QS system process) Datetime: 11/05/2016 18:16 LaborFlag: Antepartum (QS system process) Datetime: 11/05/2016 18:02 LaborFlag: Antepartum (QS system process) Datetime: 11/05/2016 17:47 LaborFlag: Antepartum (QS system process) Datetime: 11/05/2016 17:31 LaborFlag: Antepartum (QS system process) Datetime: 11/05/2016 17:01 LaborFlag: Antepartum (QS system process) Datetime: 11/05/2016 16:46 LaborFlag: Antepartum (QS system process) Datetime: 11/05/2016 16:31 LaborFlag: Antepartum (QS system process) Datetime: 11/05/2016 16:16 LaborFlag: Antepartum (QS system process) Datetime: 11/05/2016 16:01 LaborFlag: Antepartum (QS system process) Datetime: 11/05/2016 15:46 LaborFlag: Antepartum (QS system process) Datetime: 11/05/2016 15:18 LaborFlag: Antepartum (QS system process) Datetime: 11/05/2016 14:46 LaborFlag: Antepartum (QS system process) Datetime: 11/05/2016 14:31 LaborFlag: Antepartum (QS system process) Datetime: 11/05/2016 14:16 LaborFlag: Antepartum (QS system process) Datetime: 11/05/2016 14:01 LaborFlag: Antepartum (QS system process) Datetime: 11/05/2016 13:46 LaborFlag: Antepartum (QS system process) Datetime: 11/05/2016 13:31 LaborFlag: Antepartum (QS system process) Datetime: 11/05/2016 13:26 LaborFlag: Antepartum (QS system process) Datetime: 11/05/2016 13:16 LaborFlag: Antepartum (QS system process) Datetime: 10/24/2016 10:54 Membranes Ruptured Date/Time: 11/06/2016 09:49 (Rita Dwyer RN) Membranes Rupture Method: Artificial (Chhaya Dawson RN) Amniotic Fluid Color: Clear (Rita Dwyer RN) Amniotic Fluid Amount: Moderate (Rita Dwyer RN) Amniotic Fluid Odor: Normal (Rita Dwyer RN)
[2016-11-06] MEDS: LABETALOL HCL 200 MG TABLET PO SCH (21:11)
--- NOTE | 2016-11-06 23:47 | Admission Physical ---
Datetime Report Generated by CPN: 11/06/2016 23:47 CURRENT ADMISSION Chief Complaint: Other Chief Complaint Other: Elevated blood pressure 160/103, elevated liver enzymes Indication for Induction: Other Admit Impression- Other: Plan discussed with MFM. will admit Mg, steroids and section in two days if stable. Admit Plan: Admit to Unit; Initiate Section Protocol ALLERGIES Medication Allergies: No Medication Allergies: No Known Allergies (11/05/2016) Medication Allergies: No Known Allergies (10/24/2016) Medication Allergies: No Known Allergies (11/17/2015) Latex: No Latex Allergies Food Allergies: denies Environmental Allergies: denies OBSTETRICAL HISTORY EDC: 12/28/2016 00:00 : 3 Para: 1 Ectopic: 0 Cesareans: 1 VBACs: 0 Multiple Births: 0 Gestational Diabetes: No Rh Sensitization: No Incompetent Cervix: No DAYANA: No Infertility: No ART Treatment: No Uterine Anomaly: No IUGR: No Hx Previous C/S: No Macrosomia: No Hx Loss/Stillborn: No PIH: Yes Hx : No Placenta Previa/Abruption: No Depression/PP Depression: Yes PTL/PROM: No Post Hemorrhage: No Current Procedures: Ultrasound; NST Obstetrical History Comments: G1: SAB G2: 12/27/2010 primary , PIH G3: current SEE RECORDS Alcohol: No Marijuana : No Cocaine: No Other Illicit Drugs: No Cigarettes: Former Smoker. 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 Heart Disease: No Hosp/Surgery: Yes Autoimmune Disorder: No Anesthetic Complications: No Kidney Disease: No Abnormal Pap Smear: No Neuro/Epilepsy: No Psychiatric Disorders: No Other Medical Diseases: No Hepatitis/Liver Disease: No Significant Family History: No Varicosities/Phlebitis: No Trauma/Violence : No Thyroid Dysfunction: No Medical History Comments: gastric bypass 2006 2010 INFECTIOUS HISTORY Gonorrhea: No Genital Herpes: No Chlamydia: No Tuberculosis: No Syphilis: No Hepatitis: No HIV/AIDS Exposure: No Rash or Viral Illness: No HPV: No PHYSICAL EXAM General: Normal HEENT: Normal Neurologic: Normal Thyroid: Normal Heart: Normal Lungs: Normal Breast: Deferred Back: Normal Abdomen: Normal Genitourinary Exam: Normal Extremities: Normal DTRs: Normal Pelvic Type: Adequate Vital Signs: Reviewed VAGINAL EXAM Contraction Comments: irregular FETUS A EGA: 32.3 Monitoring: External US FHR- Baseline: 140 Variability: Moderate 6-25bpm Decelerations: None FHR Category: Category I Admit Comment: Pt sent from [facility]. Elevated blood pressure in the office 160/103. They recomend steroids, MgSO4, and delivery in 48 hours if stable. Delivery sooner if not stable. PLANS FOR LABOR AND DELIVERY Labor and Delivery: None Pain Management: Spinal Feeding Preference: Breast Benefit of Breast Feed Discussed: Yes Circumcision: No INFORMED CONSENT Informed Consent Obtained: Section Delivery Signature: with User ID: [email or web address]
[2016-11-07] MEDS: OXYCODONE HCL IR 5 MG TABLET PO PRN ×4 (00:32→21:50)
--- NOTE | 2016-11-07 07:00 | L&D Flow Sheet ---
LD Flowsheet Datetime Report Generated by CPN: 11/07/2016 07:00 Datetime: 11/06/2016 23:12 NBP Sys/Tonya/Mean (mmHg): 147 (QS system process) : 96 (QS system process) : 116 (QS system process) Pulse: 70 (QS system process) Datetime: 11/06/2016 22:57 NBP Sys/Tonya/Mean (mmHg): 126 (QS system process) : 83 (QS system process) : 100 (QS system process) Pulse: 61 (QS system process) Datetime: 11/06/2016 22:42 NBP Sys/Tonya/Mean (mmHg): 120 (QS system process) : 79 (QS system process) : 94 (QS system process) Pulse: 59 (QS system process) Datetime: 11/06/2016 22:27 NBP Sys/Tonya/Mean (mmHg): 142 (QS system process) : 70 (QS system process) : 98 (QS system process) Pulse: 69 (QS system process) Datetime: 11/06/2016 22:19 Communication: RN Reviewed Strip; Provider Orders Received; Call/Page Placed to Provider (Jena Mars RN) Communication Comments: Informed Dr. Estrella regarding patient status; orders received to discontinue Mag, saline lock IV, leave singh in, transfer to floor an hour after mag has been dc'd, discontinue singh in AM, continue Labetalol 200 mg TID, CBC/CMP in AM (Jena Mars RN) Datetime: 11/06/2016 22:12 NBP Sys/Tonya/Mean (mmHg): 116 (QS system process) : 78 (QS system process) : 93 (QS system process) Pulse: 57 (QS system process) Datetime: 11/06/2016 22:00 Level of Consciousness: Fully Conscious (Jena Mars RN) DTR's/Clonus: DTRs 2+; No Clonus (Jena Mars RN) Headache: Denies (Jena Mars RN) Breath Sounds, Left: Clear and Equal (Jena Mars RN) Breath Sounds, Right: Clear and Equal (Jena Mars, RN) Nausea/Vomiting: Denies (Jena aMrs, RN) RUQ Epigastric Pain: Denies (Jena Mars, RN) Datetime: 11/06/2016 21:57 NBP Sys/Tonya/Mean (mmHg): 135 (QS system process) : 84 (QS system process) : 105 (QS system process) Pulse: 80 (QS system process) Datetime: 11/06/2016 21:42 NBP Sys/Tonya/Mean (mmHg): 138 (QS system process) : 77 (QS system process) : 102 (QS system process) Pulse: 71 (QS system process) Datetime: 11/06/2016 21:27 NBP Sys/Tonya/Mean (mmHg): 139 (QS system process) : 90 (QS system process) : 111 (QS system process) Pulse: 69 (QS system process) Datetime: 11/06/2016 21:12 NBP Sys/Tonya/Mean (mmHg): 148 (QS system process) : 88 (QS system process) : 112 (QS system process) Pulse: 76 (QS system process) Datetime: 11/06/2016 21:10 Medication Comments: Labetalol 200 mg PO (Jena Field, RN) Datetime: 11/06/2016 21:00 Level of Consciousness: Fully Conscious (Jena Field, RN) DTR's/Clonus: DTRs 2+; No Clonus (Jena Field, RN) Headache: Denies (Jena Field, RN) Breath Sounds, Left: Clear and Equal (Jena Field, RN) Breath Sounds, Right: Clear and Equal (Jena Field, RN) Nausea/Vomiting: Denies (Jena Field, RN) RUQ Epigastric Pain: Denies (Jena Field, RN) Datetime: 11/06/2016 20:57 NBP Sys/Tonya/Mean (mmHg): 141 (QS system process) : 86 (QS system process) : 108 (QS system process) Pulse: 77 (QS system process) Datetime: 11/06/2016 20:42 NBP Sys/Tonya/Mean (mmHg): 134 (QS system process) : 84 (QS system process) : 104 (QS system process) Pulse: 68 (QS system process) Datetime: 11/06/2016 20:27 NBP Sys/Tonya/Mean (mmHg): 138 (QS system process) : 87 (QS system process) : 108 (QS system process) Pulse: 73 (QS system process) Datetime: 11/06/2016 20:12 NBP Sys/Tonya/Mean (mmHg): 144 (QS system process) : 82 (QS system process) : 109 (QS system process) Pulse: 77 (QS system process) Datetime: 11/06/2016 20:05 Analgesics/Sedatives: Dilaudid (mg) @ 1 IV (Jena Field, RN) Datetime: 11/06/2016 20:00 Level of Consciousness: Fully Conscious (Jena Field, RN) DTR's/Clonus: DTRs 2+; No Clonus (Jena Field, RN) Headache: Denies (Jena Field, RN) Breath Sounds, Left: Clear and Equal (Jena Field, RN) Breath Sounds, Right: Clear and Equal (Jena Field, RN) Nausea/Vomiting: Denies (Jena Field, RN) RUQ Epigastric Pain: Denies (Jena Field, RN) Datetime: 11/06/2016 19:57 NBP Sys/Tonya/Mean (mmHg): 144 (QS system process) : 89 (QS system process) : 110 (QS system process) Pulse: 74 (QS system process) Datetime: 11/06/2016 19:45 Breath Sounds, Left: Clear and Equal (Jena Field, RN) Breath Sounds, Right: Clear and Equal (Jena Field, RN) Nausea/Vomiting: Denies (Jena Field, RN) RUQ Epigastric Pain: Denies (Jena Field, RN) Datetime: 11/06/2016 19:42 NBP Sys/Tonya/Mean (mmHg): 139 (QS system process) : 79 (QS system process) : 104 (QS system process) Pulse: 79 (QS system process) Datetime: 11/06/2016 19:27 NBP Sys/Tonya/Mean (mmHg): 139 (QS system process) : 73 (QS system process) : 100 (QS system process) Pulse: 74 (QS system process) Datetime: 11/06/2016 19:17 Magnesium/Antihypertensives: Magnesium Sulfate IV (Gm/hr) @ 2 (Rita Reymundo, RN) Datetime: 11/06/2016 19:15 Communication Comments: report given to J. Field, RN. Care relinquished (Rita Reymundo, RN) Datetime: 11/06/2016 19:12 NBP Sys/Tonya/Mean (mmHg): 161 (QS system process) : 82 (QS system process) : 113 (QS system process) Pulse: 81 (QS system process) Datetime: 11/06/2016 19:00 Level of Consciousness: Fully Conscious (Rita Dwyer RN) DTR's/Clonus: DTRs 2+; No Clonus (Rita Dwyer RN) Headache: Denies (Rita Dwyer RN) Breath Sounds, Left: Clear and Equal (Rita Dwyer RN) Breath Sounds, Right: Clear and Equal (Rita Dwyer RN) Nausea/Vomiting: Denies (Rita Dwyer RN) RUQ Epigastric Pain: Denies (Rita Dwyer RN)
[2016-11-07 07:22] LABS: HEMATOCRIT 31.3 % (36.0-47.0); HEMOGLOBIN 10.8 g/dL (12.0-15.5); HGB HCT DIFFERENCE 1.1; MEAN CORPUSCULAR HEMOGLOBIN 32.4 pg (27.0-33.4); MEAN CORPUSCULAR HGB CONC 34.5 g/dL (32.0-36.0); MEAN CORPUSCULAR VOLUME 94 fl (80-97); RED BLOOD COUNT 3.34 10^6/uL (3.72-5.28); WHITE BLOOD COUNT 10.8 10^3/uL (4.0-10.5)
[2016-11-07 07:44] LABS: ALANINE AMINOTRANSFERASE 97 U/L (9-52); ALBUMIN 2.9 g/dL (3.5-5.0); ALKALINE PHOSPHATASE 57 U/L (38-126); ANION GAP 10 (5-19); ASPARTATE AMINO TRANSFERASE 72 U/L (14-36); BILIRUBIN,DIRECT 0.2 mg/dL (0.0-0.4); BILIRUBIN,TOTAL 0.4 mg/dL (0.2-1.3); BLOOD UREA NITROGEN 8 mg/dL (7-20); CALCIUM 7.4 mg/dL (8.4-10.2); CARBON DIOXIDE 21 mmol/L (22-30); CHLORIDE 104 mmol/L (98-107); CREATININE RESULT 0.46 mg/dL (0.52-1.25); GLUCOSE 85 mg/dL (75-110); POTASSIUM 4.6 mmol/L (3.6-5.0); SODIUM 134.9 mmol/L (137-145); TOTAL PROTEIN 5.6 g/dL (6.3-8.2)
[2016-11-07] MEDS: LABETALOL HCL 200 MG TABLET PO SCH ×3 (08:06→21:49)
[2016-11-07] MEDS: DOCUSATE SODIUM 100 MG CAPSULE PO SCH ×2 (09:29→18:31)
[2016-11-07] MEDS: SENNOSIDES/DOCUSATE 8.6-50 MG 1 EACH TABLET PO SCH (09:29)
[2016-11-07] MEDS: PRENATAL VITAMIN W-O CA NO5/FE FUMARATE/FA CAPSULE PO SCH (09:29)
--- NOTE | 2016-11-07 10:41 | PDOC PROGRESS REPORT ---
Subjective-OB Subjective: Post Delivery Day: 31 year old. Denies any needs at this time Doing well, pumping breasts, burning sensation in incision, voiding, pain under control Physical Exam (OB) Vital Signs: Temp Pulse Resp BP Pulse Ox 99.4 F 58 L 16 168/90 H 96 11/07/16 08:07 11/07/16 08:07 11/07/16 08:07 11/07/16 08:07 11/07/16 08:07 Intake & Output 11/06/16 11/07/16 11/08/16 06:59 06:59 06:59 Intake Total 500 Output Total 800 Balance -300 Weight 94.55 kg - PIH/Pre-Eclampsia Headache: Absent Epigastric Pain: No Visual Changes: No - Dressing Removed: No Incision: Well Approximated Closure Type: opsite - Lochia Lochia Amount: Scant < 10 ml - Abdomen Description: Soft Hernia Present: No Fundal Description: Firm, Midline Fundal Height: u/u - u/2 Objective-Diagnostic Laboratory: 11/07/16 07:08 11/07/16 07:08 11/06/16 11/06/16 11/07/16 18:00 18:00 07:08 WBC 14.3 H D 10.8 H RBC 3.59 L 3.34 L Hgb 11.3 L 10.8 L Hct 33.6 L 31.3 L MCV 94 94 MCH 31.4 32.4 MCHC 33.6 34.5 RDW 13.0 13.0 Plt Count 221 260 Seg Neutrophils % Not Reportable Lymphocytes % Not Reportable Monocytes % Not Reportable Eosinophils % Not Reportable Basophils % Not Reportable Absolute Neutrophils Not Reportable Absolute Lymphocytes Not Reportable Absolute Monocytes Not Reportable Absolute Eosinophils Not Reportable Absolute Basophils Not Reportable Sodium 133.6 L Potassium 4.3 Chloride 105 Carbon Dioxide 20 L Anion Gap 9 BUN 7 Creatinine 0.40 L Est GFR ( Amer) > 60 Est GFR (Non-Af Amer) > 60 Glucose 119 H Uric Acid 4.7 Calcium 7.3 L Total Bilirubin 0.3 AST 74 H ALT 103 H Alkaline Phosphatase 62 Total Protein 5.6 L Albumin 2.9 L 11/07/16 07:08 WBC RBC Hgb Hct MCV MCH MCHC RDW Plt Count Seg Neutrophils % Lymphocytes % Monocytes % Eosinophils % Basophils % Absolute Neutrophils Absolute Lymphocytes Absolute Monocytes Absolute Eosinophils Absolute Basophils Sodium 134.9 L Potassium 4.6 Chloride 104 Carbon Dioxide 21 L Anion Gap 10 BUN 8 Creatinine 0.46 L Est GFR ( Amer) > 60 Est GFR (Non-Af Amer) > 60 Glucose 85 Uric Acid Calcium 7.4 L Total Bilirubin 0.4 AST 72 H ALT 97 H Alkaline Phosphatase 57 Total Protein 5.6 L Albumin 2.9 L Assessment and Plan(PN) - Assessment and Plan (1) Chronic hypertension affecting Is this a current diagnosis for this admission?: Yes (2) Delivery by elective caesarean section Is this a current diagnosis for this admission?: Yes (3) Pre-eclampsia Qualifiers: Trimester: third trimester Qualified Code(s): O14.93 - Unspecified pre-eclampsia, third trimester Is this a current diagnosis for this admission?: Yes - Time Spent with Patient Time with patient: Less than 15 minutes Medications reviewed and adjusted accordingly: Yes - Disposition Anticipated Discharge: Home Within: within 24 hours
[2016-11-07] MEDS: ACETAMINOPHEN 325 MG TABLET PO PRN (14:19)
--- NOTE | 2016-11-07 18:01 | L&D Current Admission ---
Current Admit Datetime Report Generated by CPN: 11/07/2016 18:00 ADMISSION INFORMATION Current Admit Date/Time: 11/05/2016 16:05 (11/05/2016 16:05:Rita Dwyer RN) Reason for Admission: Repeat Section (11/05/2016 16:05:Rita Dwyer RN) Chief Complaint: high blood pressure in office (11/05/2016 13:26:Rita Dwyer RN) EGA per Dates: 32.3 (11/05/2016 16:05:QS system process) Method of Arrival: Wheelchair (11/05/2016 16:05:Rita Dwyer RN) Reason for Induction: Not Applicable (11/05/2016 16:05:Rita Dwyer RN) Records Available: Yes (11/05/2016 16:05:Rita Dwyer RN) General Admission Information: Reviewed (11/05/2016 16:05:Rita Dwyer RN) BELONGINGS/ADVANCED DIRECTIVES Valuables/Personal Effects: Purse/Wallet; Cell Phone; Jewelry (11/05/2016 16:05:Rita Dwyer RN) Disposition of Belongings: Kept with Patient (11/05/2016 16:05:Rita Dwyer RN) Advance Direct for Healthcare: No, and Wants No Information (11/05/2016 16:05:Rita Dwyer RN) Durable Power of Metal Roofing Mechanic: No (11/05/2016 16:05:Rita Dwyer RN) Living Will: No (11/05/2016 16:05:Rita Dwyer RN) Organ Donor: Yes (11/05/2016 16:05:Rita Dwyer RN) Pt Rights Information Given: Yes (11/05/2016 16:05:Rita Dwyer RN) Pt Understands Pt Rights: Yes (11/05/2016 16:05:Rita Dwyer RN) LEARNING ASSESSMENT Knowledge Level: Understands L_D Process (11/05/2016 16:05:Rita Dwyer RN) Learning Readiness: Motivated (11/05/2016 16:05:Rita Dwyer RN) DOMESTIC VIOLANCE SCREENING Dom Viol Threatened/Hurt: No (11/05/2016 16:05:Rita Dwyer RN) Hx of Abuse/Neglect past 2yrs: No (11/05/2016 16:05:Rita Dwyer RN) Feel Unsafe Going Home: No (11/05/2016 16:05:Rita Dwyer RN) Addt'l Observ Indicating Abuse: No (11/05/2016 16:05:Rita Dwyer RN) Reason Unable to Complete Screen: N/A, Screen Completed (11/05/2016 16:05:Rita Dwyer RN) Considered Personal Harm/Suicide: No (11/05/2016 16:05:Rita Dwyer RN) NUTRITIONAL/FUNCTIONAL SCREENING Problem with Appetite >5 Days: No (11/05/2016 16:05:Rita Dwyer RN) Chew/Swallow Difficulties: No (11/05/2016 16:05:Rita Dwyer RN) Inappropriate Wt Gain/Loss: No (11/05/2016 16:05:Rita Dwyer RN) Presence Skin Breakdown/Ulcer: No (11/05/2016 16:05:Rita Dwyer RN) Special Diet: No (11/05/2016 16:05:Rita Dwyer RN) Pt Requests Clinical Aide Visit: No (11/05/2016 16:05:Rita Dwyer RN) Hx of Any of the Following?: N/A (11/05/2016 16:05:Rita Dwyer RN) New Diagnosis of: N/A (11/05/2016 16:05:Rita Dwyer RN) Requires Assist w/Ambulation: No (11/05/2016 16:05:Rita Dwyer RN) Uses Assist Device to Ambulate: No (11/05/2016 16:05:Rita Dwyer RN) Pt Requires Help w/ADL's: No (11/05/2016 16:05:Rita Dwyer RN)
--- NOTE | 2016-11-07 18:01 | L&D General Admission ---
General Admit Datetime Report Generated by CPN: 11/07/2016 18:00 INFORMATION Patient Age: 31 (10/24/2016 10:50:QS system process) EDC: 12/28/2016 00:00 (10/24/2016 10:54:Rita Dwyer RN) : 3 (10/24/2016 10:54:Rita Dwyer RN) Para: 1 (10/24/2016 10:54:Rita Dwyer RN) Cesareans: 1 (10/24/2016 10:54:Kim Bowens RN) VBACs: 0 (10/24/2016 10:54:Kim Bowens RN) Ectopic: 0 (10/24/2016 10:54:Kim Bowens RN) Multiple Births: 0 (10/24/2016 10:54:Kim Bowens RN) Baby, Number in Womb: 1 (10/24/2016 10:54:Rita Dwyer RN) CARE Primary Content Analyst: [employer] (10/24/2016 10:54:Rita Dwyer RN) Month of 1st Visit: March (10/24/2016 10:54:Rita Dwyer RN) Adequate Care: No (10/24/2016 10:54:Rita Dwyer RN) Height (in): 67 (11/06/2016 23:46:QS system process) ALLERGIES Medication Allergy: No (10/24/2016 10:54:Rita Dwyer RN) Medication Allergies: No Known Allergies (11/05/2016) (11/05/2016 13:19:QS system process) Latex Allergy: No Latex Allergies (10/24/2016 10:54:Rita Dwyer RN) Food Allergies: denies (10/24/2016 10:54:Rita Dwyer RN) Environmental Allergies: denies (10/24/2016 10:54:Rita Dwyer RN) COMMUNICATION Primary Language: Salvadorean (10/24/2016 10:54:Rita Dwyer RN) Medical Tx Preferred Language: Salvadorean (10/24/2016 10:54:Rita Dwyer RN) DEMOGRAPHICS Address: [address] [place] [id number] (10/24/2016 10:50:QS system process) Zipcode: [address] (10/24/2016 10:50:QS system process) Home (10/24/2016 10:50:QS system process) Work (10/24/2016 10:50:QS system process) N: [id number] (10/24/2016 10:50:QS system process) Next of Kin Name: PENG BUNCH (10/24/2016 10:50:QS system process) Next of Kin (10/24/2016 10:50:QS system process) Next of Kin Relationship: SPO (10/24/2016 10:50:QS system process) Date of : 1985 (10/24/2016 10:50:QS system process) Marital Status: (10/24/2016 10:50:QS system process) Sex: Female (10/24/2016 10:50:QS system process) Race: (10/24/2016 10:50:QS system process) Ethnicity: Non- or (10/24/2016 10:50:QS system process) Scientologist: None (10/24/2016 10:50:QS system process) DRUG AND ALCOHOL USE Alcohol: No (10/24/2016 10:54:Rita Dwyer RN) Cigarettes: Former Smoker. [id number] (10/24/2016 10:54:Rita Dwyer RN) Marijuana: No (10/24/2016 10:54:Rita Dwyer RN) Cocaine: No (10/24/2016 10:54:Rita Dwyer RN) Other Illicit Drugs: No (10/24/2016 10:54:Rita Dwyer RN) VACCINE HISTORY Influenza Vaccine: Yes (10/24/2016 10:54:Rita Dwyer RN) Pneumococcal Vaccine: No (10/24/2016 10:54:Rita Dwyer RN) Tetanus Vaccine: Yes (10/24/2016 10:54:Rita Dwyer RN) Tdap Vaccine: Yes (10/24/2016 10:54:Rita Dwyer RN) Hepatitis B Vaccine: Yes (10/24/2016 10:54:Rita Dwyer RN) Middleware Consultant: [facility] (10/24/2016 10:54:Rita Dwyer RN) Feeding Preference: Breast (10/24/2016 10:54:Rita Dwyer RN) Benefit of Breast Feed Discussed: Yes (10/24/2016 10:54:Rita Dwyer RN) Circumcision: No (10/24/2016 10:54:Rita Dwyer RN) Classes Attended: No (10/24/2016 10:54:Rita Dwyer RN) Tubal Ligation: No (10/24/2016 10:54:Rita Dwyer RN) Tubal Authorization Signed: N/A (10/24/2016 10:54:Rita Dwyer RN) Consent: N/A (10/24/2016 10:54:Rita Dwyer RN) Consent Signed: N/A (10/24/2016 10:54:Rita Dwyer RN) Pain Management Plans: Spinal (10/24/2016 10:54:Rita Dwyer RN) Plans for Labor and Delivery: None (10/24/2016 10:54:Rita Dwyer RN) Support Person: Pengusama Bunch (10/24/2016 10:54:Rita Dwyer RN) Support Person Relationship: (10/24/2016 10:54:Rita Dwyer RN) Cultural/Spritual Practice: No (10/24/2016 10:54:Rita Dwyer RN) Spir/Cult Dietary Needs: No (10/24/2016 10:54:Rita Dwyer RN) LIVING SITUATION/DISCHARGE PLAN Living Arrangements: House (10/24/2016 10:54:Rita Dwyer RN) Adequate Access to:: Electric; Heat; Refrigeration; Plumbing/Running water; Phone; Transportation (10/24/2016 10:54:Riat Dwyer RN) WIC Program: Yes (10/24/2016 10:54:Rita Dwyer RN) Discharge Forensic Audit Expert Person: Peng Bunch (10/24/2016 10:54:Rita Dwyer RN) Person to Help after Discharge: Peng Bunch (10/24/2016 10:54:Rita Dwyer RN) Currently Using Commun Resources: No (10/24/2016 10:54:Rita Dwyer RN) Car Seat for Discharge: Yes (10/24/2016 10:54:Rita Dwyer RN) Adoption Requested: No (10/24/2016 10:54:Rita Dwyer RN) Pt Contact w/infant Post : N/A (10/24/2016 10:54:Rita Dwyer RN) LABS Blood Type: B Positive (10/24/2016 10:54:Rita Dwyer RN) Antibody Screen: negative (10/24/2016 10:54:Rita Dwyer RN) Hemoglobin: 10.8 L (11/07/2016 07:08:QS system process) Hematocrit: 31.3 L (11/07/2016 07:08:QS system process) MCV: 94 (11/07/2016 07:08:QS system process) Group Beta Strep: UNKNOWN (10/24/2016 10:54:Chhaya Dawson RN) Gonorrhea: Negative (10/24/2016 10:54:Rita Dwyer RN) Chlamydia: Negative (10/24/2016 10:54:Rita Dwyer RN) RPR/VDRL: Nonreactive (10/24/2016 10:54:Rita Dwyer RN) HIV Exposure Test: Negative (10/24/2016 10:54:Rita Dwyer RN) Rubella: Immune (10/24/2016 10:54:Rita Dwyer RN) OB/PREVIOUS HISTORY Previous Procedures: Ultrasound; NST (10/24/2016 10:54:Rita Dwyer RN) Current Procedures: Ultrasound; NST (10/24/2016 10:54:Rita Dwyer RN) History of Previous : No (10/24/2016 10:54:Rita Dwyer RN) History of Gestational Diabetes: No (10/24/2016 10:54:Rita Dwyer RN) History of PIH: Yes (10/24/2016 10:54:Rita Dwyer RN) History of Incompetent Cervix: No (10/24/2016 10:54:Rita Dwyer RN) History of Placenta Previa/Abrup: No (10/24/2016 10:54:Rita Dwyer RN) History of Macrosomia: No (10/24/2016 10:54:Rita Dwyer RN) History of IUGR: No (10/24/2016 10:54:Rita Dwyer RN) History of Hemorrhage: No (10/24/2016 10:54:Rita Dwyer RN) History of Loss/Stillborn: No (10/24/2016 10:54:Rita Dwyer RN) History of : No (10/24/2016 10:54:Rita Dwyer RN) History of D (Rh) Sensitization: No (10/24/2016 10:54:Rita Dwyer RN) History Recurrent Loss/Stillborn: No (10/24/2016 10:54:Rita Dwyer RN) History Depression/PP Depression: Yes (10/24/2016 10:54:Rita Dwyer RN) History of Uterine Anomaly/DAYANA: No (10/24/2016 10:54:Rita Dwyer RN) History of Infertility: No (10/24/2016 10:54:Rita Dwyer RN) History of ART Treatment: No (10/24/2016 10:54:Rita Dwyer RN) History of DAYANA: No (10/24/2016 10:54:Rita Dwyer RN) Comments Obstetrical History: G1: SAB G2: 12/27/2010 primary , PIH G3: current (10/24/2016 10:54:Kim Bowens RN) MEDICAL HISTORY Med Hx Diabetes: No (10/24/2016 10:54:Rita Dwyer RN) Med Hx Hypertension: Yes (10/24/2016 10:54:Rita Dwyer RN) Med Hx Heart Disease: No (10/24/2016 10:54:Rita Dwyer RN) Med Hx Autoimmune Disorder: No (10/24/2016 10:54:Rita Dwyer RN) Med Hx Kidney Disease/UTI: No (10/24/2016 10:54:Rita Dwyer RN) Med Hx Neurologic/Epilepsy: No (10/24/2016 10:54:Rita Dwyer RN) Med Hx Psychiatric Disorders: No (10/24/2016 10:54:Rita Dwyer RN) Med Hx Hepatitis/Liver Disease: No (10/24/2016 10:54:Rita Dwyer RN) Med Hx Varicosities/Phlebitis: No (10/24/2016 10:54:Rita Dwyer RN) Med Hx Thyroid Dysfunction: No (10/24/2016 10:54:Rita Dwyer RN) Med Hx Trauma/Violence: No (10/24/2016 10:54:Rita Dwyer RN) Med Hx Blood Transfusion: No (10/24/2016 10:54:Rita Dwyer RN) Med Hx Pulmonary (Asthma,TB): No (10/24/2016 10:54:Rita Dwyer RN) Med Hx Breast: No (10/24/2016 10:54:Rita Dwyer RN) Med Hx DATA SUPPORT SPECIALIST Surgery: No (10/24/2016 10:54:Rita Dwyer RN) Med Hx Hospitalization/Surgery: Yes (10/24/2016 10:54:Rita Dwyer RN) Med Hx Anesthetic Complications: No (10/24/2016 10:54:Rita Dwyer RN) Med Hx Abnormal Pap Smear: No (10/24/2016 10:54:Rita Dwyer RN) Other Medical Diseases: No (10/24/2016 10:54:Rita Dwyer, RN) Med Hx Significant Family Hx: No (10/24/2016 10:54:Rita Dwyer, RN) Details of Med/Surg Hx: gastric bypass 2007 2010 (10/24/2016 10:54:Rita Dwyer RN) INFECTIOUS HISTORY Inf Hx Gonorrhea: No (10/24/2016 10:54:Rita Dwyer RN) Inf Hx Chlamydia: No (10/24/2016 10:54:Rita Dwyer RN) Inf Hx Syphilis: No (10/24/2016 10:54:Rita Dwyer RN) Inf Hx HIV/AIDS: No (10/24/2016 10:54:Rita Dwyer RN) Inf Hx Human Papilloma Virus: No (10/24/2016 10:54:Rita Dwyer RN) Inf Hx Pt/Partner Genital Herpes: No (10/24/2016 10:54:Rita Dwyer RN) Inf Hx Tuberculosis/Exposure: No (10/24/2016 10:54:Rita Dwyer RN) Inf Hx Hepatitis B,C: No (10/24/2016 10:54:Rita Dwyer RN) Inf Hx Rash or Viral Illness: No (10/24/2016 10:54:Rita Dwyer RN) GENETIC HISTORY Gen Hx Age >=35 at [facility]: No (10/24/2016 10:54:Rita Dwyer RN) Gen Hx Thalassemia: No (10/24/2016 10:54:Rita Dwyer RN) Gen Hx Congenital Heart Defect: No (10/24/2016 10:54:Rita Dwyer RN) Gen Hx Neural Tube Defect: No (10/24/2016 10:54:Rita Dwyer RN) Gen Hx Down's Syndrome: No (10/24/2016 10:54:Rita Dwyer RN) Gen Hx Naif-Sachs: No (10/24/2016 10:54:Rita Dwyer RN) Gen Hx Gt: No (10/24/2016 10:54:Rita Dwyer RN) Gen Hx Familial Dysautonomia: No (10/24/2016 10:54:Rita Dwyer RN) Gen Hx Sickle Cell Disease/Trait: No (10/24/2016 10:54:Rita Dwyer RN) Gen Hx Hemophilia/Blood Disorder: No (10/24/2016 10:54:Rita Dwyer RN) Gen Hx Muscular Dystrophy: No (10/24/2016 10:54:Rita Dwyer RN) Gen Hx Cystic Fibrosis: No (10/24/2016 10:54:Rita Dwyer RN) Gen Hx Huntingtons Chorea: No (10/24/2016 10:54:Rita Dwyer RN) Gen Hx Mental Retardation/Autism: No (10/24/2016 10:54:Rita Dwyer RN) Gen Hx Tested for Fragile X: No (10/24/2016 10:54:Rita Dwyer RN) Gen Hx Other Inher/Chromosomal: No (10/24/2016 10:54:Rita Dwyer RN) Gen Hx Maternal Metabolic DO: No (10/24/2016 10:54:Rita Dwyer RN) Gen Hx Pt Father or FOB Defect: No (10/24/2016 10:54:Rita Dwyer RN) Gen Hx Other Genetic History: No (10/24/2016 10:54:Rita Dwyer RN) Gen Hx Drugs/Meds since LMP: No (10/24/2016 10:54:Rita Dwyer RN)
[2016-11-08] MEDS: LABETALOL HCL 200 MG TABLET PO SCH ×3 (05:28→22:28)
--- NOTE | 2016-11-08 06:01 | L&D Current Admission ---
Current Admit Datetime Report Generated by CPN: 11/08/2016 06:00 ADMISSION INFORMATION Current Admit Date/Time: 11/05/2016 16:05 (11/05/2016 16:05:Rita Dwyer RN) Reason for Admission: Repeat Section (11/05/2016 16:05:Rita Dwyer RN) Chief Complaint: high blood pressure in office (11/05/2016 13:26:Rita Dwyer RN) EGA per Dates: 32.3 (11/05/2016 16:05:QS system process) Method of Arrival: Wheelchair (11/05/2016 16:05:Rita Dwyer RN) Reason for Induction: Not Applicable (11/05/2016 16:05:Rita Dwyer RN) Records Available: Yes (11/05/2016 16:05:Rita Dwyer RN) General Admission Information: Reviewed (11/05/2016 16:05:Rita Dwyer RN) BELONGINGS/ADVANCED DIRECTIVES Valuables/Personal Effects: Purse/Wallet; Cell Phone; Jewelry (11/05/2016 16:05:Rita Dwyer RN) Disposition of Belongings: Kept with Patient (11/05/2016 16:05:Rita Dwyer RN) Advance Direct for Healthcare: No, and Wants No Information (11/05/2016 16:05:Rita Dwyer RN) Durable Power of Ship Captain: No (11/05/2016 16:05:Rita Dwyer RN) Living Will: No (11/05/2016 16:05:Rita Dwyer RN) Organ Donor: Yes (11/05/2016 16:05:Rita Dwyer RN) Pt Rights Information Given: Yes (11/05/2016 16:05:Rita Dwyer RN) Pt Understands Pt Rights: Yes (11/05/2016 16:05:Rita Dwyer RN) LEARNING ASSESSMENT Knowledge Level: Understands L_D Process (11/05/2016 16:05:Rita Dwyer RN) Learning Readiness: Motivated (11/05/2016 16:05:Rita Dwyer RN) DOMESTIC VIOLANCE SCREENING Dom Viol Threatened/Hurt: No (11/05/2016 16:05:Rita Dweyr RN) Hx of Abuse/Neglect past 2yrs: No (11/05/2016 16:05:Rita Dwyer RN) Feel Unsafe Going Home: No (11/05/2016 16:05:Rita Dwyer RN) Addt'l Observ Indicating Abuse: No (11/05/2016 16:05:Rita Dwyer RN) Reason Unable to Complete Screen: N/A, Screen Completed (11/05/2016 16:05:Rita Dwyer RN) Considered Personal Harm/Suicide: No (11/05/2016 16:05:Rita Dwyer RN) NUTRITIONAL/FUNCTIONAL SCREENING Problem with Appetite >5 Days: No (11/05/2016 16:05:Rita Dwyer RN) Chew/Swallow Difficulties: No (11/05/2016 16:05:Rita Dwyer RN) Inappropriate Wt Gain/Loss: No (11/05/2016 16:05:Rita Dwyer RN) Presence Skin Breakdown/Ulcer: No (11/05/2016 16:05:Rita Dwyer RN) Special Diet: No (11/05/2016 16:05:Rita Dwyer RN) Pt Requests Hospice Aide Visit: No (11/05/2016 16:05:Rita Dwyer RN) Hx of Any of the Following?: N/A (11/05/2016 16:05:Rita Dwyer RN) New Diagnosis of: N/A (11/05/2016 16:05:Rita Dwyer RN) Requires Assist w/Ambulation: No (11/05/2016 16:05:Rita Dwyer RN) Uses Assist Device to Ambulate: No (11/05/2016 16:05:Rita Dwyer RN) Pt Requires Help w/ADL's: No (11/05/2016 16:05:Rita Dwyer RN)
--- NOTE | 2016-11-08 06:01 | L&D General Admission ---
General Admit Datetime Report Generated by CPN: 11/08/2016 06:00 INFORMATION Patient Age: 31 (10/24/2016 10:50:QS system process) EDC: 12/28/2016 00:00 (10/24/2016 10:54:Rita Dwyer RN) : 3 (10/24/2016 10:54:Rita Dwyer RN) Para: 1 (10/24/2016 10:54:Rita Dwyer RN) Cesareans: 1 (10/24/2016 10:54:Kim Bowens RN) VBACs: 0 (10/24/2016 10:54:Kim Bowens RN) Ectopic: 0 (10/24/2016 10:54:Kim Bowens RN) Multiple Births: 0 (10/24/2016 10:54:Kim Bowens RN) Baby, Number in Womb: 1 (10/24/2016 10:54:Rita Dwyer RN) CARE Primary Dough Molder: [facility] (10/24/2016 10:54:Rita Dwyer RN) Month of 1st Visit: March (10/24/2016 10:54:Rita Dwyer RN) Adequate Care: No (10/24/2016 10:54:Rita Dwyer RN) Height (in): 67 (11/06/2016 23:46:QS system process) ALLERGIES Medication Allergy: No (10/24/2016 10:54:Rita Dwyer RN) Medication Allergies: No Known Allergies (11/05/2016) (11/05/2016 13:19:QS system process) Latex Allergy: No Latex Allergies (10/24/2016 10:54:Rita Dwyer RN) Food Allergies: denies (10/24/2016 10:54:Rita Dwyer RN) Environmental Allergies: denies (10/24/2016 10:54:Rita Dwyer RN) COMMUNICATION Primary Language: Tongan (10/24/2016 10:54:Rita Dwyer RN) Medical Tx Preferred Language: Tongan (10/24/2016 10:54:Rtia Dwyer RN) DEMOGRAPHICS Address: [address] [place] [id number] (10/24/2016 10:50:QS system process) Zipcode: [address] (10/24/2016 10:50:QS system process) Home (10/24/2016 10:50:QS system process) Work (10/24/2016 10:50:QS system process) N: [phone] (10/24/2016 10:50:QS system process) Next of Kin Name: PENG BUNCH (10/24/2016 10:50:QS system process) Next of Kin (10/24/2016 10:50:QS system process) Next of Kin Relationship: SPO (10/24/2016 10:50:QS system process) Date of : 1985 (10/24/2016 10:50:QS system process) Marital Status: (10/24/2016 10:50:QS system process) Sex: Female (10/24/2016 10:50:QS system process) Race: (10/24/2016 10:50:QS system process) Ethnicity: Non- or (10/24/2016 10:50:QS system process) Voodoo: None (10/24/2016 10:50:QS system process) DRUG AND ALCOHOL USE Alcohol: No (10/24/2016 10:54:Rita Dwyer RN) Cigarettes: Former Smoker. [id number] (10/24/2016 10:54:Rita Dwyer RN) Marijuana: No (10/24/2016 10:54:Rita Dwyer RN) Cocaine: No (10/24/2016 10:54:Rita Dwyer RN) Other Illicit Drugs: No (10/24/2016 10:54:Rita Dwyer RN) VACCINE HISTORY Influenza Vaccine: Yes (10/24/2016 10:54:Rita Dwyer RN) Pneumococcal Vaccine: No (10/24/2016 10:54:Rita Dwyer RN) Tetanus Vaccine: Yes (10/24/2016 10:54:Rita Dwyer RN) Tdap Vaccine: Yes (10/24/2016 10:54:Rita Dwyer RN) Hepatitis B Vaccine: Yes (10/24/2016 10:54:Rita Dwyer RN) Weight Loss Physician: [facility] (10/24/2016 10:54:Rita Dwyer RN) Feeding Preference: Breast (10/24/2016 10:54:Rita Dwyer RN) Benefit of Breast Feed Discussed: Yes (10/24/2016 10:54:Rita Dwyer RN) Circumcision: No (10/24/2016 10:54:Rita Dwyer RN) Classes Attended: No (10/24/2016 10:54:Rita Dwyer RN) Tubal Ligation: No (10/24/2016 10:54:Rita Dwyer RN) Tubal Authorization Signed: N/A (10/24/2016 10:54:Rita Dwyer RN) Consent: N/A (10/24/2016 10:54:Rita Dwyer RN) Consent Signed: N/A (10/24/2016 10:54:Rita Dwyer RN) Pain Management Plans: Spinal (10/24/2016 10:54:Rita Dwyer RN) Plans for Labor and Delivery: None (10/24/2016 10:54:Rita Dwyer RN) Support Person: Pengusama Bunch (10/24/2016 10:54:Rita Dwyer RN) Support Person Relationship: (10/24/2016 10:54:Rita Dwyer RN) Cultural/Spritual Practice: No (10/24/2016 10:54:Rita Dwyer RN) Spir/Cult Dietary Needs: No (10/24/2016 10:54:Rita Dwyer RN) LIVING SITUATION/DISCHARGE PLAN Living Arrangements: House (10/24/2016 10:54:Rita Dwyer RN) Adequate Access to:: Electric; Heat; Refrigeration; Plumbing/Running water; Phone; Transportation (10/24/2016 10:54:Rita Dwyer RN) WIC Program: Yes (10/24/2016 10:54:Rita Dwyer RN) Discharge Accident Report Clerk Person: Peng Bunch (10/24/2016 10:54:Rita Dwyer RN) Person to Help after Discharge: Peng Bunch (10/24/2016 10:54:Rita Dwyer RN) Currently Using Commun Resources: No (10/24/2016 10:54:Rita Dwyer RN) Car Seat for Discharge: Yes (10/24/2016 10:54:Rita Dwyer RN) Adoption Requested: No (10/24/2016 10:54:Rita Dwyer RN) Pt Contact w/infant Post : N/A (10/24/2016 10:54:Rita Dwyer RN) LABS Blood Type: B Positive (10/24/2016 10:54:Rita Dwyer RN) Antibody Screen: negative (10/24/2016 10:54:Rita Dwyer RN) Hemoglobin: 10.8 L (11/07/2016 07:08:QS system process) Hematocrit: 31.3 L (11/07/2016 07:08:QS system process) MCV: 94 (11/07/2016 07:08:QS system process) Group Beta Strep: UNKNOWN (10/24/2016 10:54:Chhaya Dawson RN) Gonorrhea: Negative (10/24/2016 10:54:Rita Dwyer RN) Chlamydia: Negative (10/24/2016 10:54:Rita Dwyer RN) RPR/VDRL: Nonreactive (10/24/2016 10:54:Rita Dwyer RN) HIV Exposure Test: Negative (10/24/2016 10:54:Rita Dwyer RN) Rubella: Immune (10/24/2016 10:54:Rita Dwyer RN) OB/PREVIOUS HISTORY Previous Procedures: Ultrasound; NST (10/24/2016 10:54:Rita Dwyer RN) Current Procedures: Ultrasound; NST (10/24/2016 10:54:Rita Dwyer RN) History of Previous : No (10/24/2016 10:54:Rita Dwyer RN) History of Gestational Diabetes: No (10/24/2016 10:54:Rita Dwyer RN) History of PIH: Yes (10/24/2016 10:54:Rita Dwyer RN) History of Incompetent Cervix: No (10/24/2016 10:54:Rita Dwyer RN) History of Placenta Previa/Abrup: No (10/24/2016 10:54:Rita Dwyer RN) History of Macrosomia: No (10/24/2016 10:54:Rita Dwyer RN) History of IUGR: No (10/24/2016 10:54:Rita Dwyer RN) History of Hemorrhage: No (10/24/2016 10:54:Rita Dwyer RN) History of Loss/Stillborn: No (10/24/2016 10:54:Rita Dwyer RN) History of : No (10/24/2016 10:54:Rita Dwyer RN) History of D (Rh) Sensitization: No (10/24/2016 10:54:Rita Dwyer RN) History Recurrent Loss/Stillborn: No (10/24/2016 10:54:Rita Dwyer RN) History Depression/PP Depression: Yes (10/24/2016 10:54:Rita Dwyer RN) History of Uterine Anomaly/DAYANA: No (10/24/2016 10:54:Rita Dwyer RN) History of Infertility: No (10/24/2016 10:54:Rita Dwyer RN) History of ART Treatment: No (10/24/2016 10:54:Rita Dwyer RN) History of DAYANA: No (10/24/2016 10:54:Rita Dwyer RN) Comments Obstetrical History: G1: SAB G2: 12/27/2010 primary , PIH G3: current (10/24/2016 10:54:Kim Bowens RN) MEDICAL HISTORY Med Hx Diabetes: No (10/24/2016 10:54:Rita Dwyer RN) Med Hx Hypertension: Yes (10/24/2016 10:54:Rita Dwyer RN) Med Hx Heart Disease: No (10/24/2016 10:54:Rita Dwyer RN) Med Hx Autoimmune Disorder: No (10/24/2016 10:54:Rita Dwyer RN) Med Hx Kidney Disease/UTI: No (10/24/2016 10:54:Rita Dwyer RN) Med Hx Neurologic/Epilepsy: No (10/24/2016 10:54:Rita Dwyer RN) Med Hx Psychiatric Disorders: No (10/24/2016 10:54:Rita Dwyer RN) Med Hx Hepatitis/Liver Disease: No (10/24/2016 10:54:Rita Dwyer RN) Med Hx Varicosities/Phlebitis: No (10/24/2016 10:54:Rita Dwyer RN) Med Hx Thyroid Dysfunction: No (10/24/2016 10:54:Rita Dwyer RN) Med Hx Trauma/Violence: No (10/24/2016 10:54:Rita Dwyer RN) Med Hx Blood Transfusion: No (10/24/2016 10:54:Rita Dwyer RN) Med Hx Pulmonary (Asthma,TB): No (10/24/2016 10:54:Rita Dwyer RN) Med Hx Breast: No (10/24/2016 10:54:Rita Dwyer RN) Med Hx SOLUTION CONSULTANT Surgery: No (10/24/2016 10:54:Rita Dwyer RN) Med Hx Hospitalization/Surgery: Yes (10/24/2016 10:54:Rita Dwyer RN) Med Hx Anesthetic Complications: No (10/24/2016 10:54:Rita Dwyer RN) Med Hx Abnormal Pap Smear: No (10/24/2016 10:54:Rita Dwyer RN) Other Medical Diseases: No (10/24/2016 10:54:Rita Dwyer, RN) Med Hx Significant Family Hx: No (10/24/2016 10:54:Rita Dwyer, RN) Details of Med/Surg Hx: gastric bypass 2007 2010 (10/24/2016 10:54:Rita Dwyer RN) INFECTIOUS HISTORY Inf Hx Gonorrhea: No (10/24/2016 10:54:Rita Dwyer RN) Inf Hx Chlamydia: No (10/24/2016 10:54:Rita Dwyer RN) Inf Hx Syphilis: No (10/24/2016 10:54:Rita Dwyer RN) Inf Hx HIV/AIDS: No (10/24/2016 10:54:Rita Dwyer RN) Inf Hx Human Papilloma Virus: No (10/24/2016 10:54:Rita Dwyer RN) Inf Hx Pt/Partner Genital Herpes: No (10/24/2016 10:54:Rita Dwyer RN) Inf Hx Tuberculosis/Exposure: No (10/24/2016 10:54:Rita Dwyer RN) Inf Hx Hepatitis B,C: No (10/24/2016 10:54:Rita Dwyer RN) Inf Hx Rash or Viral Illness: No (10/24/2016 10:54:Rita Dwyer RN) GENETIC HISTORY Gen Hx Age >=35 at ZAHEER: No (10/24/2016 10:54:Rita Dwyer RN) Gen Hx Thalassemia: No (10/24/2016 10:54:Rita Dwyer RN) Gen Hx Congenital Heart Defect: No (10/24/2016 10:54:Rita Dwyer RN) Gen Hx Neural Tube Defect: No (10/24/2016 10:54:Rita Dwyer RN) Gen Hx Down's Syndrome: No (10/24/2016 10:54:Rita Dwyer RN) Gen Hx Naif-Sachs: No (10/24/2016 10:54:Rita Dwyer RN) Gen Hx Gt: No (10/24/2016 10:54:Rita Dwyer RN) Gen Hx Familial Dysautonomia: No (10/24/2016 10:54:Rita Dwyer RN) Gen Hx Sickle Cell Disease/Trait: No (10/24/2016 10:54:Rita Dwyer RN) Gen Hx Hemophilia/Blood Disorder: No (10/24/2016 10:54:Rita Dwyer RN) Gen Hx Muscular Dystrophy: No (10/24/2016 10:54:Rita Dwyer RN) Gen Hx Cystic Fibrosis: No (10/24/2016 10:54:Rita Dwyer RN) Gen Hx Huntingtons Chorea: No (10/24/2016 10:54:Rita Dwyer RN) Gen Hx Mental Retardation/Autism: No (10/24/2016 10:54:Rita Dwyer RN) Gen Hx Tested for Fragile X: No (10/24/2016 10:54:iRta Dwyer RN) Gen Hx Other Inher/Chromosomal: No (10/24/2016 10:54:Rita Dwyer RN) Gen Hx Maternal Metabolic DO: No (10/24/2016 10:54:Rita Dwyer RN) Gen Hx Pt Father or FOB Defect: No (10/24/2016 10:54:Rita Dwyer RN) Gen Hx Other Genetic History: No (10/24/2016 10:54:Rita Dwyer RN) Gen Hx Drugs/Meds since LMP: No (10/24/2016 10:54:Rita Dwyer RN)
--- NOTE | 2016-11-08 06:16 | L&D Care Plan ---
LD CARE PLANS Datetime Report Generated by CPN: 11/08/2016 06:15 Datetime: 11/05/2016 14:58 Pain State: Risk For (SURENDRA Landa) Related To: Surgical Procedure; Complication(s) of ; Disease Process; Treatment and Procedures (SURENDRA Landa) Goal(s): Patients Pain will be Assessed and Managed; Patient will Verbalize Adequate Relief of Pain or the Ability to [place] with Current Pain (SURENDRA Landa) Interventions: Assess Pain Severity on Scale of 0 (None) to 5 (Severe); Assess Type, Location and Intensity of Pain Each Time Client Reports Discomfort and Notify Provider if Unusal Pain Develops; Encourage Proper Breathing and Relaxation Techniques; Offer Alternatives Such as Repositioning, Calm Environment, Massages, Diversional Activities, Ice Pack, Splinting, and Ambulation; Administer Analgesics as Ordered; Assist with Epidural Placement as Appropriate; Evaluate Therapeutic Effectiveness of Medication and Treatments (SURENDRA Landa) Outcome: Patient will Report Absence or Relief of Pain Consistent with Established Pain Goal (SURENDRA Landa) Outcome: Patient will have a Decrease in Signs and Symptoms of Discomfort (SURENDRA Landa) Outcome: Pain will be Controlled During Procedures (SURENDRA Landa) Anxiety State: Actual (SURENDRA Landa) Related To: Surgical Procedure; Fear of Unknown (SURENDRA Landa) Goal(s): Patient will have Decreased Anxiety and be able to Function at Acceptable Levels (SURENDRA Landa) Interventions: Assess Verbal and Nonverbal Behavioral Indicators of Anxiety; Assist Patient to Identify and Verbalize Symptoms of Anxiety; Identify and Demonstrate Techniques to Control Anxiety; Assist Patient with Coping Mechanisms to Manage Anxiety; Provide Theraputic Touch for the Patient; Explain to Patient, Using a Calm Reassuring Approach and Nonmedical Terms, All Activities, Procedures, and Concerns; Instruct Patient and Family about Post Discharge Care, Limitations, Symptoms to Report and Resources Available (SURENDRA Landa) Outcome: Patient will Identify, Verbalize and Demonstrate Techniques to Control Anxiety (SURENDRA Landa) Outcome: Patient's Posture, Facial Expressions, Gestures and Activity Level will Reflect Decreased Anxiety (SURENDRA Landa) Outcome: Patient will Verbalize a Sense of Control and/or Acceptance of the Situation (SURENDRA Landa) Outcome: Patient will Identify and Utilize Support Person (SURENDRA Landa) Knowledge Deficit State: Actual (SURENDRA Landa) Related To: Labor and Delivery Process; Surgical Procedures (SURENDRA Landa) Goal(s): Patient will Accurately Verbalize Understanding of Plan of Care and Treatment; Patient and Family will Accurately Verbalize Understanding of the Disease Process (SURENDRA Landa) Interventions: Assess Motivation and Willingness of Patient/Family to Learn; Assess Preferred Learning Mode: One to One Instruction, Reading, Videos, Group Discussion or Demonstration; Assess Barriers to Learning: Pain, Emotional State, Language Barrier, Cognitive Impairment, Visual or Hearing Deficits; Assess Patient and Family Knowledge of Disease Process, Medications and Treatment; Discuss Therapy and/or Treatment Options, Describe Rationale Behind Management, Therapy and Treatment Recommendations; Instruct Patient and Family on Signs and Symptoms to Report; Instruct Patient and Family on Medication Effects and Side Effects; Provide Appropriate and Timely Education Using Multiple Techniques; Provide Patient and Family with Support Group Information and Resources; Give Clear and Thorough Explanations and Demonstrations (SURENDRA Landa) Outcome: Patient and Family will Verbalize Understanding of Condition, Treatment and Signs and Symptoms to Report (SURENDRA Landa) Outcome: Patient will Identify Perceived Learning Needs and Express Motivation to Learn (SURENDRA Landa) Outcome: Patient will Verbalize Understanding of Desired Content, and/or Performs Desired Skill Prior to Discharge (SURENDRA Landa) Infection State: Risk For (SURENDRA Landa) Related To: Surgical Procedures; Invasive Procedures (SURENDRA Landa) Goal(s): The Patient will be Free of Infection, Vital Signs Stable and Lab Work within Normal Parameters (SURENDRA Landa) Interventions: Instruct and Reinforce Proper Handwashing, Hygiene, and Care Techniques to Patient and Family; Monitor Vital Signs; Monitor Patient for the Following Signs of Infection: Fever, Abdominal Tenderness, Unusual Discharge; Monitor Aminiotic Fluid, Urine and Lochia for Color and Odor; Observe Wounds, Incisions and Invasive Line Sites for Redness, Drainage and Edema; Assess IV Sites per Hospital Policy; Monitor Lab and Test Results and Notify Provider of Abnormal Findings; Assess Nutritional Status and Promote Good Nutrition (SURENDRA Landa) Outcome: Patient will Remain Free of Infection (SURENDRA Landa) Outcome: Infection will be Recognized Early to Allow for Prompt Treatment (SURENDRA Landa) Outcome: Patient will have Vital Signs Within Expected Range (SURENDRA Landa) Fluid Volume State: Risk For (SURENDRA Landa) Related To: Gestational Hypertension; Surgical Procedures (SURENDRA Landa) Goal(s): Patient will Achieve and Maintain a Balanced Fluid Volume Status; Hemodynamically Stable (SURENDRA Landa) Interventions: Monitor Vital Signs; Auscultate Breath Sounds; Monitor Patient for Skin Turgor, Mucous Membranes, Dry Skin, Weakness, Headaches and Confusion; Provide Oral Fluids as Ordered; Initiate and Maintain Intravenous Fluids as Ordered; Monitor Intake and Output as Indicated Per Patient Status; Accurately Measure Blood Loss; Monitor Lab and Test Results as Obtained and Notify Provider of Abnormal Findings; Monitor Patient's Weight (SURENDRA Landa) Outcome: Patient will have Clear Lung Sounds (SURENDRA Landa) Outcome: Patient will have Vital Signs within Expected Range (SURENDRA Landa) Outcome: Urine Output will be within Expected Range (SURENDRA Landa) Outcome: Patient will have Minimal Generalized or Upper Extremity Edema (SURENDRA Landa) Injury State: Risk For (SURENDRA Landa) Related To: Labor and Delivery Process; Gestational Hypertension or Eclampsia; Risk to Status; Uteroplacental Perfusion (SURENDRA Landa) Goal(s): Patient will Remain Free from Injury (SURENDRA Landa) Interventions: Monitoring as per Hospital Protocol; Assess Neurological Status; Perform Risk Assessment of Patients with Induction and ; Perform Fall Risk Assessment and Prevention per Hospital Protocol; Perform DVT Risk Assessment and Prophylaxis per Hospital Protocol; Ensure that Oxygen, Suction, and Resuscitation Medications and Equipment are Readily Available; Confirm Patient ID Prior to Procedure(s) and Medication Administration per Hospital Policy (SURENDRA Landa) Outcome: Successful Fall Risk Prevention (SURENDRA Landa) Outcome: Patient will Deliver Infant without Adverse Sequela (SURENDRA Landa) Outcome: Patient's Neurological Status will Remain Stable (Belkys Jonathan, RNC) Impaired Skin Integrity State: Not Applicable (Belkys Jonathan, RNC) Parenting Impaired State: Not Applicable (Belkys Jonathan, RNC) Nutrition State: Not Applicable (Belkys Jonathan, RNC) Grieving State: Not Applicable (Belkys Castillo, RNC) Additional Care Plan State: Not Applicable (Belkys Castillo RNC)
[2016-11-08] MEDS: SENNOSIDES/DOCUSATE 8.6-50 MG 1 EACH TABLET PO SCH (10:33)
[2016-11-08] MEDS: DOCUSATE SODIUM 100 MG CAPSULE PO SCH ×2 (10:33→17:46)
[2016-11-08] MEDS: PRENATAL VITAMIN W-O CA NO5/FE FUMARATE/FA CAPSULE PO SCH (10:33)
[2016-11-08] MEDS: OXYCODONE HCL IR 5 MG TABLET PO PRN ×3 (10:39→22:29)
--- NOTE | 2016-11-08 11:29 | PDOC DISCHARGE SUMMARY ---
Final Diagnosis Discharge Date: 11/08/16 - Final Diagnosis (1) Chronic hypertension affecting Is this a current diagnosis for this admission?: Yes (2) Delivery by elective caesarean section Is this a current diagnosis for this admission?: Yes (3) Pre-eclampsia Is this a current diagnosis for this admission?: Yes Discharge Data - Discharge Medication Home Medications: Aspirin 81 mg PO DAILY 10/24/16 B12/FA/D3/Calc Cit/Zn Aa Chelt [Rx Balance Int Capsule] 1 tab PO DAILY 10/24/16 Calcium Citrate/Vitamin D3 [Calcium Citrate - Vit D Caplet] 1 tab PO DAILY 10/24 Iron 18 mg PO DAILY 10/24/16 Labetalol HCl [Normodyne 200 mg Tablet] 200 mg PO TID 10/24/16 Pnv No.122/Iron/Folic Acid [ Multi Tablet] 1 each PO DAILY 10/24/16 Vit D3/Folic Acid/B2/B6/B12 [Folgard Tablet] 1 tab PO DAILY 10/24/16 Reason(s) for Admission: Ceasarean Section-Repeat, Medical Complications, Obstetric Complications Admission Note: Elevated LFT and severe range BPs Procedures: NST, Management of Obstetric Complications Intrapartum Procedure(s): : Low Cervical, Transverse - Diagnosis Test Laboratory: Temp Pulse Resp BP Pulse Ox 98.7 F 65 16 133/76 H 100 11/08/16 07:44 11/08/16 07:44 11/08/16 07:44 11/08/16 07:44 11/08/16 07:44 11/05/16 11/05/16 11/05/16 13:13 13:18 20:27 RBC 3.53 L 3.89 Hgb 11.1 L 12.2 Hct 32.8 L 36.3 Urine Opiates Screen NEGATIVE 11/06/16 11/06/16 11/07/16 06:44 18:00 07:08 RBC 3.62 L 3.59 L 3.34 L Hgb 11.6 L 11.3 L 10.8 L Hct 33.8 L 33.6 L 31.3 L Urine Opiates Screen - Discharge information/Instructions Discharge Activity: Balance Activity w/Rest, Energy Conservation, Keep Legs Elevated, No Lifting Over 10 Pounds, No Lifting/Push/Pulling, Pelvic Rest, No tub bath Discharge Diet: Regular Disposition: HOME, SELF-CARE Follow up with: [facility] in: 5, Days
[2016-11-09] MEDS: LABETALOL HCL 200 MG TABLET PO SCH ×3 (05:48→23:57)
[2016-11-09] MEDS: ACETAMINOPHEN 325 MG TABLET PO PRN ×3 (05:49→16:31)
[2016-11-09] MEDS: PRENATAL VITAMIN W-O CA NO5/FE FUMARATE/FA CAPSULE PO SCH (10:15)
[2016-11-09] MEDS: DOCUSATE SODIUM 100 MG CAPSULE PO SCH ×2 (10:22→17:44)
[2016-11-09] MEDS: SENNOSIDES/DOCUSATE 8.6-50 MG 1 EACH TABLET PO SCH (10:22)
--- NOTE | 2016-11-09 12:36 | PDOC PROGRESS REPORT ---
Subjective-OB Subjective: Post Delivery Day: 31 year old. Denies any needs at this time Physical Exam (OB) Vital Signs: Temp Pulse Resp BP Pulse Ox 98.2 F 59 L 20 157/83 H 100 11/09/16 08:18 11/09/16 08:18 11/09/16 08:18 11/09/16 08:18 11/09/16 08:18 Intake & Output 11/08/16 11/09/16 11/10/16 06:59 06:59 06:59 Intake Total 600 740 Balance 600 740 - PIH/Pre-Eclampsia Clonus: Negative Headache: Absent Epigastric Pain: No Visual Changes: No - Dressing Removed: No - opsite Incision: Well Approximated Closure Type: opsite - Lochia Lochia Amount: Scant < 10 ml Lochia Color: Serosa/Brown - Abdomen Description: Soft Hernia Present: No Bowel Sounds: Normoactive Flatus Presence: Present Stool: No Fundal Description: Firm, Midline Fundal Height: u/u - u/2 Objective-Diagnostic Laboratory: 11/07/16 07:08 11/07/16 07:08 Assessment and Plan(PN) - Time Spent with Patient Medications reviewed and adjusted accordingly: Yes - Disposition Anticipated Discharge: Home
[2016-11-09] MEDS ORDERED: NIFEDIPINE 30 MG TAB.ER.24 PO ONE (14:00)
[2016-11-09] MEDS: OXYCODONE HCL IR 5 MG TABLET PO PRN (23:56)
[2016-11-10] MEDS: LABETALOL HCL 200 MG TABLET PO SCH ×2 (06:45→15:14)
[2016-11-10] MEDS: OXYCODONE HCL IR 5 MG TABLET PO PRN (06:47)
[2016-11-10 08:30] VITALS: BP 142/89
[2016-11-10] MEDS: PRENATAL VITAMIN W-O CA NO5/FE FUMARATE/FA CAPSULE PO SCH (09:27)
[2016-11-10] MEDS: SENNOSIDES/DOCUSATE 8.6-50 MG 1 EACH TABLET PO SCH (09:29)
[2016-11-10] MEDS: DOCUSATE SODIUM 100 MG CAPSULE PO SCH (09:29)
--- NOTE | 2016-11-10 10:24 | PDOC PROGRESS REPORT ---
Subjective-OB Subjective: Post Delivery Day: 31 year old. Denies any needs at this time. Ready to go home. Physical Exam (OB) Vital Signs: Temp Pulse Resp BP Pulse Ox 98.6 F 61 16 142/89 H 100 11/10/16 08:22 11/10/16 08:22 11/10/16 08:22 11/10/16 08:22 11/10/16 08:22 Intake & Output 11/09/16 11/10/16 11/11/16 06:59 06:59 06:59 Intake Total 740 Balance 740 - PIH/Pre-Eclampsia Clonus: Negative Headache: Absent Epigastric Pain: No Visual Changes: No - Dressing Removed: No - opsite Incision: Dressing Closure Type: OPsite - Lochia Lochia Amount: Scant < 10 ml Lochia Color: Rubra/Red - Abdomen Description: Soft, Round Hernia Present: No Bowel Sounds: Normoactive Flatus Presence: Present Stool: Yes Fundal Description: Firm Fundal Height: u/u - u/2 Objective-Diagnostic Laboratory: 11/07/16 07:08 11/07/16 07:08 Assessment and Plan(PN) - Time Spent with Patient Medications reviewed and adjusted accordingly: Yes - Disposition Anticipated Discharge: Home
--- NOTE | 2016-11-10 10:35 | PDOC DISCHARGE SUMMARY ---
Final Diagnosis Discharge Date: 11/10/16 - Final Diagnosis (1) Chronic hypertension affecting Is this a current diagnosis for this admission?: Yes (2) Delivery by elective caesarean section Is this a current diagnosis for this admission?: Yes (3) History of gastric bypass Is this a current diagnosis for this admission?: Yes (4) Pre-eclampsia Is this a current diagnosis for this admission?: Yes Discharge Data - Discharge Medication Home Medications: Calcium Citrate/Vitamin D3 [Calcium Citrate - Vit D Caplet] 1 tab PO DAILY 10/24 Iron 18 mg PO DAILY 10/24/16 Pnv No.122/Iron/Folic Acid [ Multi Tablet] 1 each PO DAILY 10/24/16 Vit D3/Folic Acid/B2/B6/B12 [Folgard Tablet] 1 tab PO DAILY 10/24/16 Docusate Sodium [Colace 100 mg Capsule] 100 mg PO BID #60 capsule 11/08/16 Ibuprofen [Motrin 600 mg Tablet] 600 mg PO Q8HP PRN #90 tablet 11/08/16 Labetalol HCl [Normodyne 200 mg Tablet] 200 mg PO TID #0 tablet 11/08/16 Oxycodone HCl [Oxy-Ir 5 mg Tablet] 5 mg PO Q4HP PRN #30 tablet 11/08/16 Nifedipine [Procardia Xl 30 mg Tablet] 30 mg PO DAILY #30 tab.er.24 11/10/16 Reason(s) for Admission: Obstetric Complications, PIH Procedures: Ultrasound Intrapartum Procedure(s): : Low Cervical, Transverse - Diagnosis Test Laboratory: Temp Pulse Resp BP Pulse Ox 98.6 F 61 16 142/89 H 100 11/10/16 08:22 11/10/16 08:22 11/10/16 08:22 11/10/16 08:22 11/10/16 08:22 11/05/16 11/05/16 11/05/16 13:13 13:18 20:27 RBC 3.53 L 3.89 Hgb 11.1 L 12.2 Hct 32.8 L 36.3 Urine Opiates Screen NEGATIVE 11/06/16 11/06/16 11/07/16 06:44 18:00 07:08 RBC 3.62 L 3.59 L 3.34 L Hgb 11.6 L 11.3 L 10.8 L Hct 33.8 L 33.6 L 31.3 L Urine Opiates Screen - Discharge information/Instructions Discharge Activity: Activity As Tolerated, Balance Activity w/Rest, Energy Conservation, No Lifting Over 10 Pounds, No Lifting/Push/Pulling, Non- Ambulatory Child, Pelvic Rest, Slowly Increase Activity, No tub bath Discharge Diet: Regular Disposition: HOME, SELF-CARE Follow up with: [facility] in: 3, Days
[2016-11-10] MEDS ORDERED: NIFEDIPINE 30 MG TAB.ER.24 PO ONE (10:36)
[2016-11-10] MEDS: ACETAMINOPHEN 325 MG TABLET PO PRN (12:33)
== END 2016-11-10 15:30 | disposition home or self-care (01) | DRG 766 ==
LOC: LC 12:44 → LR 14:43 → 2N 11-06 23:46
PROVIDERS: ADMIT Obstetrics & Gynecology; ATTEND Specialist
PROC: 4A1HXCZ Monitoring of Products of Conception, Cardiac Rate, External Approach (ICD-10-PCS; 2016-11-05)
PROC: 10D00Z1 Extraction of Products of Conception, Low, Open Approach (ICD-10-PCS; principal; 2016-11-06)
DX: O11.4 Pre-existing hypertension with pre-eclampsia, complicating childbirth (principal); O69.2XX0 Labor and delivery complicated by other cord entanglement, with compression, not applicable or unspecified; O34.211 Maternal care for low transverse scar from previous cesarean delivery; O99.344 Other mental disorders complicating childbirth; F32.9 Major depressive disorder, single episode, unspecified; R94.5 Abnormal results of liver function studies; Z3A.32 32 weeks gestation of pregnancy; Z37.0 Single live birth; Z87.891 Personal history of nicotine dependence; Z98.84 Bariatric surgery status
CPT/HCPCS: 1961; 36415; 80053; 80307; 81005; 83615; 84550; 85025; 85027; 86592; 86850; 86900; 86901; 88307; 94799; C1765; J0131; J0690; J0702; J1170; J2250; J2405; J2590; J3010; J3475; J3490

== ENCOUNTER 2016-11-16 03:45 | Emergency (ER) | payer BC, MEDICAID ==
[2016-11-16] MEDS ORDERED: PROCHLORPERAZINE EDISYLATE INJ 10 MG/2 ML VIAL IV ONE (07:34)
[2016-11-16] MEDS ORDERED: NORMAL SALINE 1000 ML 1,000 ML IV ONE (07:34)
[2016-11-16] MEDS ORDERED: DIPHENHYDRAMINE HCL 50 MG/ML VIAL IV ONE (07:34)
[2016-11-16] MEDS ORDERED: KETOROLAC TROMETHAMINE INJ/PF 30 MG/1 ML SDV IV ONE (07:35)
--- NOTE | 2016-11-16 07:35 | ER Document Report ---
ED Headache - General Mode of Arrival: Ambulatory Information source: Patient, [facility] Records TRAVEL OUTSIDE OF THE [place] IN LAST 30 DAYS: No - HPI Patient complains to provider of: Headache Onset: Yesterday - 1200 Timing: Still present <GEOVANY PONCE - Last Filed: 11/16/16 08:18> <KOMAL RAJAN - Last Filed: 11/16/16 09:37> - General Chief Complaint: Headache <24 hrs old Stated Complaint: HEADACHE Notes: Patient is a 31-year-old female, with history of hypertension and gastric bypass , presenting to the emergency department concerned of right-sided headache onset yesterday at approximately 12 PM. Patient recently had a performed at 32 weeks on 11/06/2016 due to HELLP syndrome. There were no complications with , and her blood pressure medication was adjusted after delivery. Patient was on Labetalol prior to delivery, and Procardia was added after. Patient describes the headache as waxing and waning radiating over her right anabaptism, eye, cheek, and into neck, exacerbated by light and movement. Patient took Motrin and Percocet with no relief. (GEOVANY PONCE) - Related Data Allergies/Adverse Reactions: No Known Allergies Allergy (Verified 11/05/16 13:19) Past Medical History - General Information source: Patient, [facility] Records - Social History Smoking Status: Never Smoker Chew tobacco use (# tins/day): No Frequency of alcohol use: None Drug Abuse: None Family History: Reviewed & Not Pertinent Patient has suicidal ideation: No Patient has homicidal ideation: No - Past Medical History Cardiac Medical History: Reports: Hx Hypertension Renal/ Medical History: Denies: Hx Peritoneal Dialysis Past Surgical History: Reports: Hx Section - 2010, 2017, Hx Gastric Bypass Surgery - 2006 - Immunizations Hx Diphtheria, Pertussis, Tetanus Vaccination: Yes <GEOVANY PONCE - Last Filed: 11/16/16 08:18> Review of Systems - Review of Systems Constitutional: No symptoms reported EENT: No symptoms reported Cardiovascular: No symptoms reported Respiratory: No symptoms reported Gastrointestinal: No symptoms reported Genitourinary: No symptoms reported Female Genitourinary: No symptoms reported Musculoskeletal: No symptoms reported Skin: No symptoms reported Hematologic/Lymphatic: No symptoms reported Neurological/Psychological: See HPI, Headaches -: Yes All other systems reviewed and negative <CARLO PONCESSICA - Last Filed: 11/16/16 08:18> Physical Exam - General General appearance: Alert In distress: None - HEENT Head: Normocephalic, Atraumatic Eyes: Normal Pupils: PERRL Neck: Posterior cervical chain - Tenderness to palpation over the posterior cervical chain, neck is supple with full range of motion., Supple - Respiratory Respiratory status: No respiratory distress Chest status: Nontender Breath sounds: Normal Chest palpation: Normal - Cardiovascular Rhythm: Regular Heart sounds: Normal auscultation Murmur: No - Abdominal Bowel sounds: Normal Tenderness: Nontender - Back Back: Normal, Nontender - Extremities General upper extremity: Normal inspection, Nontender General lower extremity: Normal inspection, Nontender - Neurological Neuro grossly intact: Yes Cognition: Normal Orientation: AAOx4 [place] Coma Scale Eye Opening: Spontaneous [place] Coma Scale Verbal: Oriented [place] Coma Scale Motor: Obeys Commands Kilo Coma Scale Total: 15 Speech: Normal - Psychological Associated symptoms: Normal affect, Normal mood - Skin Skin Temperature: Warm Skin Moisture: Dry Skin Color: Normal <GEOVANY PONCE - Last Filed: 11/16/16 08:18> Course <GEOVANY PONCE - Last Filed: 11/16/16 08:18> - Laboratory Result Diagrams: 11/16/16 08:50 11/16/16 08:50 <KOMAL RAJAN - Last Filed: 11/16/16 09:37> - Re-evaluation Re-evalutation: 11/16/16 09:36 Patient reports her headache is gone now, after the medications. (KOMAL RAJAN ) - Vital Signs Vital signs: Temp Pulse Resp BP Pulse Ox 98.7 F 60 16 145/94 H 98 11/16/16 03:58 11/16/16 05:40 11/16/16 05:40 11/16/16 05:40 11/16/16 05:40 - Laboratory Laboratory results interpreted by sc: 11/16/16 11/16/16 11/16/16 05:20 08:50 08:50 RBC 3.21 L Hgb 10.1 L Hct 29.8 L Creatinine 0.41 L ALT 62 H Total Protein 6.0 L Albumin 3.3 L Urine Blood MODERATE H Discharge <GEOVANY PONCE - Last Filed: 11/16/16 08:18> <KOMAL RAJAN - Last Filed: 11/16/16 09:37> - Discharge Clinical Impression: Migraine headache Qualifiers: Migraine type: unspecified Status migrainosus presence: without status migrainosus Intractability: not intractable Qualified Code(s): G43.909 - Migraine, unspecified, not intractable, without status migrainosus Condition: Stable Disposition: HOME, SELF-CARE Additional Instructions: Migraine Headache: The physician feels that your symptoms are due to a migraine attack. Migraines are caused by changes in the blood vessels of the head. Arteries go into spasm, often causing warning symptoms that a headache may begin soon. As the spasm goes away, the vessels dilate and throb, causing the pounding pain of a migraine headache. Migraines often cause nausea and vomiting. The treatment of headaches varies with severity and cause of pain. Not all headaches need pain shots -- in fact, there is evidence that using narcotics for headaches may make them worse in the long run. The physician will determine the therapy that's in your best interest for this particular headache. Medications are available that may prevent migraines, or stop them as they first occur. If one medication is not helpful, try another. If migraines are frequent, be patient -- follow the doctor's recommendations. Call the physician if you are worsening, or if new symptoms arise. DRINK PLENTY OF FLUIDS. CONTINUE YOUR REGULAR MEDICATIONS. FOLLOW UP WITH YOUR DOCTOR IF THE HEADACHE RETURNS. RETURN TO THE EMERGENCY ROOM IF ANY NEW OR WORSENING SYMPTOMS. Scribe Attestation: 11/16/16 09:37 I personally performed the services described in the documentation, reviewed and edited the documentation which was dictated to the scribe in my presence, and it accurately records my words and actions. (KOMAL RAJAN) Scribe Documentation - Scribe Written by Kashif:: Geovany Ponce 11/16/2016 0735 acting as scribe for :: Latanya <GEOVAYN PONCE - Last Filed: 11/16/16 08:18>
[2016-11-16 08:28] LABS: APPEARANCE,URINE CLEAR; BILIRUBIN,URINE NEGATIVE (NEGATIVE); GLUCOSE, URINE NEGATIVE (NEGATIVE); KETONES,URINE NEGATIVE (NEGATIVE); LEUKOCYTE ESTERASE,URINE NEGATIVE (NEGATIVE); NITRITE,URINE NEGATIVE (NEGATIVE); PROTEIN,URINE NEGATIVE (NEGATIVE); URINE SPECIFIC GRAVITY 1.006; UROBILINOGEN,URINE NEGATIVE mg/dL (<2.0)
[2016-11-16 09:02] LABS: ABSOLUTE BASOPHILS # (AUTO) 0.1 10^3/uL (0.0-0.2); ABSOLUTE EOSINOPHILS # (AUTO) 0.1 10^3/uL (0.0-0.6); ABSOLUTE LYMPHOCYTES (AUTO) 1.4 10^3/uL (0.5-4.7); ABSOLUTE MONOCYTES (AUTO) 0.4 10^3/uL (0.1-1.4); ABSOLUTE NEUT (AUTO) 4.1 10^3/uL (1.7-8.2); HEMATOCRIT 29.8 % (36.0-47.0); HEMOGLOBIN 10.1 g/dL (12.0-15.5); HGB HCT DIFFERENCE 0.5; LYMPHOCYTES % (AUTO) 22.3 % (13-45); MEAN CORPUSCULAR HEMOGLOBIN 31.5 pg (27.0-33.4); MEAN CORPUSCULAR VOLUME 93 fl (80-97); MONOCYTES % (AUTO) 7.3 % (3-13); RED BLOOD COUNT 3.21 10^6/uL (3.72-5.28); RED CELL DISTRIBUTION WIDTH 12.7 % (11.5-14.0); SEGMENTED NEUTROPHILS % (AUTO) 67.4 % (42-78); WHITE BLOOD COUNT 6.1 10^3/uL (4.0-10.5)
[2016-11-16 09:24] LABS: ALANINE AMINOTRANSFERASE 62 U/L (9-52); ALBUMIN 3.3 g/dL (3.5-5.0); ALKALINE PHOSPHATASE 50 U/L (38-126); ANION GAP 9 (5-19); ASPARTATE AMINO TRANSFERASE 24 U/L (14-36); BILIRUBIN,DIRECT 0.2 mg/dL (0.0-0.4); BILIRUBIN,TOTAL 0.5 mg/dL (0.2-1.3); BLOOD UREA NITROGEN 9 mg/dL (7-20); CALCIUM 8.6 mg/dL (8.4-10.2); CARBON DIOXIDE 25 mmol/L (22-30); CHLORIDE 106 mmol/L (98-107); CREATININE RESULT 0.41 mg/dL (0.52-1.25); GLUCOSE 77 mg/dL (75-110); POTASSIUM 3.8 mmol/L (3.6-5.0); SODIUM 140.4 mmol/L (137-145)
[2016-11-16 09:51] VITALS: BP 134/89
== END 2016-11-16 09:51 | disposition home or self-care (01) ==
LOC: ER 03:45
DX: O99.355 Diseases of the nervous system complicating the puerperium (principal); G43.909 Migraine, unspecified, not intractable, without status migrainosus; O10.93 Unspecified pre-existing hypertension complicating the puerperium; Z98.84 Bariatric surgery status; Z98.890 Other specified postprocedural states; Z79.899 Other long term (current) drug therapy
CPT/HCPCS: 99283; 96361; 96374; 96375; 36415; 85025; 80053; 81001; J1200; J1885; J0780; J7030

== ENCOUNTER 2016-12-20 21:20 | Emergency (ER) | payer BC, MEDICAID ==
--- NOTE | 2016-12-20 23:47 | ER Document Report ---
ED Headache - General Mode of Arrival: Ambulatory Information source: Patient TRAVEL OUTSIDE OF THE [place] IN LAST 30 DAYS: No - HPI Patient complains to provider of: Headache, "Migraine" Patient reports: Hx chronic headaches Onset: Just prior to arrival Timing: Still present Quality of pain: Achy Severity: None Associated symptoms: None Exacerbated by: Light Similar symptoms previously: Yes Recently seen / treated by doctor: Yes - General Chief Complaint: Headache Stated Complaint: HEADACHE,BODY PAIN Notes: Patient is a 31-year-old female that presents to the emergency department today with complaints of a "migraine headache" which began around 1530 today and has increased in intensity since onset. Patient has never been diagnosed with migraine headaches in the past but she assumes this is what they are. Patient states she has not had headaches frequently in the past however they are increasing in frequency as of late. Patient states she tried Tylenol, Percocet , and Reglan at home for her headache with no relief. Patient complains of photophobia. Patient does add that she has a baby at home and has been pumping for breast feeding and may have a tension headache. (JOSEPHINE SEXTON) - Related Data Allergies/Adverse Reactions: No Known Allergies Allergy (Verified 11/05/16 13:19) Past Medical History - General Information source: Patient - Social History Smoking Status: Never Smoker Cigarette use (# per day): No Frequency of alcohol use: None Drug Abuse: None Lives with: Family Family History: Reviewed & Not Pertinent Patient has suicidal ideation: No Patient has homicidal ideation: No - Past Medical History Cardiac Medical History: Reports: Hx Hypertension Past Surgical History: Reports: Hx Abdominal Surgery - gastric bypass 2006, Hx Section - 2010, 2016, Hx Gastric Bypass Surgery - 2006 - Immunizations Hx Diphtheria, Pertussis, Tetanus Vaccination: Yes Review of Systems - Review of Systems Constitutional: No symptoms reported EENT: No symptoms reported Cardiovascular: No symptoms reported Respiratory: No symptoms reported Gastrointestinal: No symptoms reported Genitourinary: No symptoms reported Female Genitourinary: No symptoms reported Musculoskeletal: No symptoms reported Skin: No symptoms reported Hematologic/Lymphatic: No symptoms reported Neurological/Psychological: See HPI, Headaches -: Yes All other systems reviewed and negative Physical Exam - Vital signs Vitals: Temp Pulse Resp BP Pulse Ox 98.5 F 61 18 150/93 H 98 12/20/16 21:29 12/20/16 21:29 12/20/16 21:29 12/20/16 21:29 12/20/16 21:29 - Notes Notes: Physical Exam: General: Alert, appears well. HEENT: Normocephalic. Atraumatic. PERRL. Extraocular movements intact. Oropharynx clear. Neck: Supple. Non-tender. Respiratory: No respiratory distress. Clear and equal breath sounds bilaterally. Cardiovascular: Regular rate and rhythm. Abdominal: Normal Inspection. Non-tender. No distension. Normal Bowel Sounds. Back: Non-tender. No deformity or step off. Extremities: Moves all four extremities. Upper extremities: Normal inspection. Normal ROM. Lower extremities: Normal inspection. No edema. Normal ROM. Neurological: Normal cognition. AAOx4. Normal speech. Appears to be mildly uncomfortable secondary to headache, complains of photophobia. Psychological: Normal affect. Normal Mood. Skin: Warm. Dry. Normal color. (JOSEPHINE SEXTON) Course - Re-evaluation Re-evalutation: 12/20/16 23:52 Patient presents mental gradual onset of typical headache since 3:30 this afternoon. She says located frontally she also has some tension in her parascapular and parathoracic region just but a home from the hospital is been doing a lot of pumping and lifting and feels some tightness in her neck and upper body. She has a history of headaches going on for quite some time has not technically been diagnosed with migraine she is on any medication for migraines or headaches took some leftover Percocet which didn't help it. She has not seen a neurologist and has no family history of aneurysm. She is concerned about her blood pressure she's been taking blood pressure medication it's 150/93 not clinically concerned were rapidly lower than his that would have deleterious effect on her. No blurred vision double vision GCS of 15 with normal neurological examination. Response to Toradol Reglan and Benadryl which we have done in the past. Patient had a history of help syndrome was she was here she has not had a seizure or any concerns from that standpoint. Going to have her follow-up with the primary care physician one to 2 days as well as OB/ [employer] physician and gave her the number to a neurologist call for a follow-up appointment regarding these headaches. Discussed with her and her reasons for ED return sooner (JUICE FREED) - Vital Signs Vital signs: Temp Pulse Resp BP Pulse Ox 97.6 F 74 16 129/88 H 99 12/21/16 00:22 12/21/16 00:22 12/21/16 00:22 12/21/16 00:22 12/21/16 00:22 Discharge - Discharge Clinical Impression: acute cephalgia Condition: Stable Disposition: HOME, SELF-CARE Additional Instructions: Headache The physician does not feel that the headache you are experiencing has a serious underlying cause. Most headaches are due to emotional stress, with resultant muscle tension (tension headache). Occasionally, headaches are secondary to changes in the blood vessels of the scalp (vascular headache and migraine headache). Sometimes, a headache is the first symptom of another developing illness, such as a viral infection. You have no evidence of stroke, bleeding, meningitis, or other serious cause of your headache. The treatment of headaches varies with the severity and cause of the pain. Not all headaches need pain shots. In fact, there is evidence that using narcotics for headaches may make them worse in the long run. The physician will determine the therapy that's in your best interest. If you develop a fever, if the headache is different from any you've previously experienced, or if the headache progressively worsens, then call your physician at once or go to the emergency room. Referrals: NICOLE CERNA MD [ACTIVE STAFF] - (Call for an appointment to be seen in 3-5 days return for increasing worsening or new symptoms. Also follow up with primary care physician one to 2 days) Scribe Attestation: 12/20/16 23:51 I personally performed the services described in the documentation reviewed the documentation recorded by my scribe in my presence and it accurately and completely records my words and actions (JUICE FREED) Canibe Documentation - Scribe Written by Kashif:: Kashif Michel, [id number] 12/21/2016 acting as scribe for :: Kevan
[2016-12-20] MEDS ORDERED: DIPHENHYDRAMINE HCL 50 MG/ML VIAL IM ONE (23:50)
[2016-12-20] MEDS ORDERED: METOCLOPRAMIDE HCL INJ/PF 10 MG/2 ML SDV IM ONE (23:50)
[2016-12-20] MEDS ORDERED: KETOROLAC TROMETHAMINE 60 MG/2 ML SDV IM ONE (23:50)
[2016-12-21 00:23] VITALS: BP 129/88
== END 2016-12-21 00:21 | disposition home or self-care (01) ==
LOC: ER 21:20
DX: R51 Headache (principal); R52 Pain, unspecified; Z79.899 Other long term (current) drug therapy
CPT/HCPCS: 99283; 96372; J1200; J1885; J2765

== ENCOUNTER 2017-01-09 11:02 | Outpatient (CLI) | payer MEDICAID ==
[~2017-01-09 11:02] MED LIST: FERRIC CARBOXYMALTOSE 750 MG in NORMAL SALINE 250 ML IV PRN; NORMAL SALINE 250 ML IV PRN
[2017-01-09 11:37] VITALS: BP 138/70
== END 2017-01-09 12:47 | disposition home or self-care (01) ==
LOC: II 11:02 → 5TH 11:06 → II 12:47
PROVIDERS: ATTEND Internal Medicine
PROC: 3E033GC Introduction of Other Therapeutic Substance into Peripheral Vein, Percutaneous Approach (ICD-10-PCS; principal; 2017-01-09)
DX: D50.8 Other iron deficiency anemias (principal); K91.2 Postsurgical malabsorption, not elsewhere classified
CPT/HCPCS: 96365; J7050; J1439

== ENCOUNTER 2017-01-16 10:27 | Outpatient (CLI) | payer MEDICAID ==
[2017-01-16 10:52] VITALS: BP 137/93
== END 2017-01-16 11:14 | disposition home or self-care (01) ==
LOC: II 10:27 → 5TH 10:28 → II 11:14
PROVIDERS: ATTEND Internal Medicine
PROC: 3E033GC Introduction of Other Therapeutic Substance into Peripheral Vein, Percutaneous Approach (ICD-10-PCS; principal; 2017-01-16)
DX: D50.8 Other iron deficiency anemias (principal); K91.2 Postsurgical malabsorption, not elsewhere classified
CPT/HCPCS: 96365; J7050; J1439

== ENCOUNTER → 2017-06-12 | Outpatient (CLI) | payer BC, MEDICAID ==
--- NOTE | 2017-06-12 17:48 | RADIOLOGY REPORT (SQ) ---
EXAM DESCRIPTION: U/S THYROID/SFT TISS HD NECK COMPLETED DATE/TIME: 06/12/2017 5:28 pm REASON FOR STUDY: LYMPHADENOPATHY OF HEAD AND NECK R59.1 GENERALIZED ENLARGED LYMPH NODES COMPARISON: None. TECHNIQUE: Dynamic and static leblanc-scale images acquired of the thyroid gland. Selected additional c olor/power Doppler images recorded. All images stored to PACS. Patient describes tenderness in her right and left submandibular regions. Ultrasound of the right an d left submandibular triangle was also performed. LIMITATIONS: None. FINDINGS: RIGHT LOBE: Normal size, 4.3 x 1.8 x 1.3 cm in size. Homogeneous echotexture. No right l obe thyroid cysts. 5 mm nodule right midpole thyroid. LEFT LOBE: Normal size, 3.8 x 1.5 x 1.2 cm. Homogeneous echotexture. No solid nodules. 2 mm colloi d cyst left midpole thyroid. ISTHMUS: Normal size. Homogeneous echotexture. No cystic or solid masses. OTHER: Patient describes tenderness in the right and left submandibular triangle regions. Ultrasound was performed in these areas. The right submandibular gland is 3.3 x 2.7 x 1.6 cm in size, left sub mandibular gland 3.3 x 1.8 x 1.3 cm in size. No cysts. No masses. No dilated submandibular duct. No adenopathy. IMPRESSION: No focal findings in the right or left submandibular triangle. Normal size thyroid gland with 5 mm nodule in the right midpole gland and 2 mm colloid cyst in the le ft midpole thyroid. 1 year follow-up thyroid ultrasound recommended. TECHNICAL DOCUMENTATION: JOB ID: [id number] 2016 [employer]- All Rights Reserved
== END ==
LOC: RAD 16:56
PROVIDERS: ATTEND Nurse Practitioner Family
DX: R59.1 Generalized enlarged lymph nodes (principal)
CPT/HCPCS: 76536

== ENCOUNTER 2017-09-23 08:41 | Day surgery (SDC) | payer BC, OTHER ==
[~2017-09-23 08:41] MED LIST changes: -FERRIC CARBOXYMALTOSE 750 MG in NORMAL SALINE 250 ML IV PRN; -NORMAL SALINE 250 ML IV PRN; +PROPOFOL INJ 200 MG/20 ML VIAL IV ONE
[2017-09-23 10:05] VITALS: BP 136/84
--- NOTE | 2017-09-23 12:32 | Operative Report ---
Operative Report DATE OF SURGERY: 09/23/17 Operative Report: The risks benefits and alternatives of the procedure explained to the patient in detail and informed consent is obtained.A GIF Olympus video scope was inserted into the patient's mouth and hypopharynx, the esophagus is identified intubated and insufflated ,the scope was then advanced through the esophagus stomach and duodenum, retroflexion maneuver is done, the esophagus stomach and first and second portions of the duodenum examined PREOPERATIVE DIAGNOSIS: Abdominal pain, gastroesophageal reflux disease. Status post Saad-en-Y surgery for gastric bypass surgery in the past POSTOPERATIVE DIAGNOSIS: Residual inflammation noted in the pouch. Incidental finding of a gastric polyp status post biopsy. No anastomotic ulcer noted OPERATION: EGD with biopsy SURGEON: CONNIE GO ANESTHESIA: LMAC TISSUE REMOVED OR ALTERED: As noted above. COMPLICATIONS: None. ESTIMATED BLOOD LOSS: None. INTRAOPERATIVE FINDINGS: normal afferent and efferent loops PROCEDURE: Patient tolerated the procedure well. No immediate postprocedure complications are noted. Patient discharged in good condition. Discharge date 09/23/2017. Discharge diet: Regular. Discharge activity: Regular. 2-3 week follow-up to discuss findings. Patient is instructed to call the office or proceed to the emergency room should there be any further problems or questions. We will wait on pathology.
== END 2017-09-23 10:00 | disposition home or self-care (01) ==
LOC: END 08:41
PROVIDERS: ATTEND Internal Medicine Gastroenterology
PROC: 0DB68ZX Excision of Stomach, Via Natural or Artificial Opening Endoscopic, Diagnostic (ICD-10-PCS; principal; 2017-09-23 10:00)
DX: K21.9 Gastro-esophageal reflux disease without esophagitis (principal); K31.7 Polyp of stomach and duodenum; I10 Essential (primary) hypertension; Z79.1 Long term (current) use of non-steroidal anti-inflammatories (NSAID); Z79.899 Other long term (current) drug therapy
CPT/HCPCS: 43239; 88305 ×2; J2704; 731

== ENCOUNTER 2019-05-28 17:36 | Emergency (ER) | payer OTHER, MEDICAID ==
--- NOTE | 2019-05-28 17:53 | ER Document Report ---
ED Medical Screen (RME) - General Stated Complaint: CHEST TIGHTNESS,COUGH,WHEEZING Time Seen by Provider: 05/28/19 17:49 Primary Care Provider: MARIANA GARCIA NP [Primary Care Provider] - Follow up as needed Mode of Arrival: Ambulatory Information source: Patient Notes: This 33-year-old female presents emergency department with reports of allergic reaction to her allergy shots. She reports she has been having to allergy shots a week since October. She reports on the way home today she started feel like her throat was closing off and chest tightness with wheeze. She did take 50 mg of Benadryl at 5:00. She reports that allergy injection site is a little more swollen than normal. No rash. Patient speaking in a clear voice. Respiratory rate even unlabored no wheeze noted. She reports her throat still feels itchy. I have greeted and performed a rapid initial assessment of this patient. A comprehensive ED assessment and evaluation of the patient, analysis of test results and completion of the medical decision making process will be conducted by additional ED providers. Dictation of this chart was performed using voice recognition software; therefore, there may be some unintended grammatical errors. TRAVEL OUTSIDE OF THE [place] IN LAST 30 DAYS: No - Related Data Allergies/Adverse Reactions: No Known Allergies Allergy (Verified 09/23/17 08:44) Past Medical History - Past Medical History Cardiac Medical History: Reports: Hx Hypertension Denies: Hx Coronary Artery Disease, Hx Heart Attack Pulmonary Medical History: Denies: Hx Asthma, Hx Bronchitis, Hx COPD, Hx Pneumonia Neurological Medical History: Denies: Hx Cerebrovascular Accident, Hx Seizures Renal/ Medical History: Denies: Hx Peritoneal Dialysis Musculoskeltal Medical History: Denies Hx Arthritis Past Surgical History: Reports: Hx Abdominal Surgery - gastric bypass 2006, Hx Section - 2010, 2016, Hx Gastric Bypass Surgery - 2006 - Immunizations Hx Diphtheria, Pertussis, Tetanus Vaccination: Yes Physical Exam - Vital signs Vitals: Temp Pulse Resp BP Pulse Ox 98.5 F 61 18 164/99 H 98 05/28/19 17:43 05/28/19 17:43 05/28/19 17:43 05/28/19 17:43 05/28/19 17:43 Course - Vital Signs Vital signs: Temp Pulse Resp BP Pulse Ox 98.5 F 61 18 164/99 H 98 05/28/19 17:43 05/28/19 17:43 05/28/19 17:43 05/28/19 17:43 05/28/19 17:43 Doctor's Discharge - Discharge Referrals: MARIANA GARCIA NP [Primary Care Provider] - Follow up as needed
[2019-05-28] MEDS ORDERED: PREDNISONE 20 MG TABLET PO ONE (20:12)
[2019-05-28] MEDS ORDERED: FAMOTIDINE 20 MG TABLET PO ONE (20:13)
--- NOTE | 2019-05-28 20:15 | ER Document Report ---
ED Allergic Reaction - General Chief Complaint: Allergic Reaction Stated Complaint: CHEST TIGHTNESS,COUGH,WHEEZING Time Seen by Provider: 05/28/19 17:49 Primary Care Provider: MARIANA GARCIA NP [Primary Care Provider] - Follow up tomorrow Mode of Arrival: Ambulatory Information source: Patient Notes: 33-year-old female presented to ED for complaint of allergic reaction to her allergy shots. She states she is been getting the allergy shots since October. She states she took one on Saturday and she took a second 1 today the same dose she had no reaction on Saturday so they let her go home right after the shot. She states on the way home she felt like her throat was closing and she had chest tightness and wheezing. She states she called the [employer] cal[employer] operator and they told her to follow-up with him on Saturday but to come to the emergency room right now. She did take Benadryl 50 mg at 5 PM. She is alert oriented respirations regular nonlabored lungs clear to auscultation speaking in full sentences. There is no swelling to her throat there is no swelling to her lips there is a mild amount of redness and swelling to the site. TRAVEL OUTSIDE OF THE [place] IN LAST 30 DAYS: No - HPI Onset: This afternoon Onset/Duration: Gone Severity: None Pain Level: Denies Identified cause: Yes - Allergy shots Skin rash / itching: "Redness" - At the site with mild swelling Associated symptoms: None - She states she did feel like her chest was tight and she was wheezing and the throat was closing up early all the symptoms have resolved Similar symptoms previously: No Recently seen / treated by doctor: Yes - Related Data Allergies/Adverse Reactions: No Known Allergies Allergy (Verified 09/23/17 08:44) Past Medical History - General Information source: Patient - Social History Smoking Status: Never Smoker Chew tobacco use (# tins/day): No Frequency of alcohol use: Rare Drug Abuse: None Lives with: Family - Is just like it was always Family History: Reviewed & Not Pertinent Patient has suicidal ideation: No Patient has homicidal ideation: No - Past Medical History Cardiac Medical History: Reports: Hx Hypertension Pulmonary Medical History: Reports: None EENT Medical History: Reports: None Neurological Medical History: Reports: None Endocrine Medical History: Reports: None Renal/ Medical History: Reports: None Malignancy Medical History: Reports: None GI Medical History: Reports: None Musculoskeletal Medical History: Reports None Skin Medical History: Reports None Psychiatric Medical History: Reports: None Traumatic Medical History: Reports: None Infectious Medical History: Reports: None Past Surgical History: Reports: Hx Section - 2010, 2017, Hx Gastric Bypass Surgery - 2006 - Immunizations Immunizations up to date: Yes Hx Diphtheria, Pertussis, Tetanus Vaccination: Yes Review of Systems - Review of Systems Constitutional: No symptoms reported EENT: Difficulty swallowing, Other - Throat swelling Cardiovascular: No symptoms reported Respiratory: Short of breath, Wheezing Gastrointestinal: No symptoms reported Genitourinary: No symptoms reported Female Genitourinary: No symptoms reported Musculoskeletal: No symptoms reported Skin: No symptoms reported Hematologic/Lymphatic: No symptoms reported Neurological/Psychological: No symptoms reported -: Yes All other systems reviewed and negative Physical Exam - Vital signs Vitals: Temp Pulse Resp BP Pulse Ox 98.5 F 61 18 164/99 H 98 05/28/19 17:43 05/28/19 17:43 05/28/19 17:43 05/28/19 17:43 05/28/19 17:43 Interpretation: Normal - General General appearance: Appears well, Alert - HEENT Head: Normocephalic, Atraumatic Eyes: Normal Pupils: PERRL - Respiratory Respiratory status: No respiratory distress Chest status: Nontender Breath sounds: Normal Chest palpation: Normal - Cardiovascular Rhythm: Regular Heart sounds: Normal auscultation Murmur: No - Abdominal Inspection: Normal Distension: No distension Bowel sounds: Normal Tenderness: Nontender Organomegaly: No organomegaly - Back Back: Normal, Nontender - Extremities General upper extremity: Normal inspection, Nontender, Normal color, Normal ROM, Normal temperature General lower extremity: Normal inspection, Nontender, Normal color, Normal ROM, Normal temperature, Normal weight bearing. No: Shannan's sign - Neurological Neuro grossly intact: Yes Cognition: Normal Orientation: AAOx4 Kilo Coma Scale Eye Opening: Spontaneous [place] Coma Scale Verbal: Oriented Kilo Coma Scale Motor: Obeys Commands Kilo Coma Scale Total: 15 Speech: Normal Motor strength normal: LUE, RUE, LLE, RLE Sensory: Normal - Psychological Associated symptoms: Normal affect, Normal mood - Skin Skin Temperature: Warm Skin Moisture: Dry Skin Color: Normal Course - Re-evaluation Re-evalutation: 05/28/19 20:23 Patient treated with prednisone Pepcid and given a prescription for EpiPen and prednisone and Pepcid. Patient was instructed to return to the ED immediately for any difficulty swallowing shortness of breath or wheezing. verbalized understanding and agreement with treatment plan. - Vital Signs Vital signs: Temp Pulse Resp BP Pulse Ox 98.1 F 59 L 16 140/94 H 98 05/28/19 20:21 05/28/19 20:21 05/28/19 20:21 05/28/19 20:21 05/28/19 20:21 Discharge - Discharge Clinical Impression: Allergic reaction to serum, anaphylactic shock Condition: Stable Disposition: HOME, SELF-CARE Additional Instructions: ACUTE ALLERGIC REACTION: Your symptoms are due to an allergic reaction. Allergy can cause hives, swelling of the hands, feet, and face, hoarseness, and difficulty swallowing or breathing. It may be due to exposure to medication, animal dander, foods, infection, or insect bites. Medication is a common cause, even when prior use of this same medication caused no problems. Acute treatment may include adrenalin and antihistamines. Usually, the specific allergic agent can't be identified unless repeated episodes occur. Home treatment includes the following: (1) Stop any suspicious medications. This will be discussed with you. (2) Oral antihistamines for the next four to five days. Example, diphenhydramine (Benadryl) every four hours. (3) You may also use cimetidine (Tagamet), ranitidine (Zantac), or famotidine (Pepcid) every four hours if diphenhydramine is not controlling itching and hives. (4) Avoid aspirin until the hives completely disappear. (5) Avoid hot baths or showers until the hives are completely gone. Call the doctor if faintness, difficulty swallowing, tightness in the chest, or wheezing occurs. EPINEPHRINE: An injection of epinephrine (also called adrenalin) is used to treat allergic reactions, asthma, and some other medical conditions. It is a stimulant medication that consticts blood vessels, relaxes smooth muscles such as in the bronchioles of the lung, elevates blood pressure, and increases heart rate. It can temporarily make you feel very nervous and shakey, but it's affects last only a short time, about 15 to 30 minutes at most. STEROID MEDICATION: You have been given a medicine of the cortisone/steroid class. This me dication is used to control inflammation or allergy. It is usually only given for a short period of time, until the acute process subsides. There are usually no side effects from short-term use of cortisone-like medications. Some persons feel an increased sense of well-being and are not sleepy at bedtime. Long-term use of cortisone medications is best avoided, unless required for a severe condition. If your condition does not remit, or relapses after the course of corticosteroid medication, you should consult your physician. ACID-SUPPRESSING MEDICATION: You have a prescription for medicine which reduces the stomach's secretion of acid. Examples include Zantac, Tagament, and Pepcid. These drugs are often used to allow healing of ulcers or esophagitis. They may be needed to prevent recurrence of ulcers in some patients, or to prevent damage from acid reflux in the esophagus. Take all medication as prescribed, even after the pain is gone. Regular antacids may be added as needed if you have symptoms while taking this medicine. These medications sometimes are prescribed for allergic reactions because they have anti-histaminic effects and relieve the rash and itching of the reaction. There are usually no side effects from this medication. But, in rare cases and particularly in the elderly, serious problems can occur. Contact your doctor if there is fever, rash, hallucinations, confusion, or unusual bruising. Contact your doctor at once if you develop lightheadedness, black or bloody stool, or bloody vomitus. ANTIHISTAMINES: An antihistamine has been given and/or prescribed to control your symptoms. Antihistamines are used for many reasons, including itching, watering eyes, runny nose, allergic swelling, hives, and insect stings. Antihistamines may cause drowsiness, especially with the first dose. Do not operate machinery or drive while under the effects of the medication. Other common side effects include dry mouth and eyes. In older persons, antihistamines can occasionally cause urinary retention, constipation, and trouble focusing the eyes. Do not combine the medication with alcohol, or with any other medication without talking to your doctor. USE OF DIPHENHYDRAMINE: The use of diphenhydramine (Benadryl) has been recommended to control allergic symptoms. The 25 mg strength is available over- the-counter, as well as the elixir. This antihistamine is used for many symptoms. It's useful for itching, watering eyes and nose, allergic swelling, hives, and insect stings. T he medication can be repeated four times daily. Age Elixir (12.5 mg/tsp) 25 mg pill 2-3 yr 1/2 tsp 4-8 yr 1 tsp 9-14 yr 2 tsp one tab adult 1-2 tabs Antihistamines may cause drowsiness, especially with the first dose. Do not operate machinery or drive while under the effects of the medication. Do not combine the medication with alcohol, or with any other medication without talking to your doctor. FOLLOW-UP CARE: If you have been referred to a physician for follow-up care, call the physicians office for an appointment as you were instructed or within the next two days. If you experience worsening or a significant change in your symptoms, notify the physician immediately or return to the Emergency Department at any time for re-evaluation. Prescriptions: Prednisone [Deltasone 20 mg Tablet] 3 tab PO DAILY 5 Days tablet Epinephrine [Epipen 2-Art] 0.3 mg IJ ASDIR PRN #1 [id number].injct PRN Reason: Famotidine [Pepcid 20 mg Tablet] 20 mg PO BID #12 tablet Forms: Elevated Blood Pressure Referrals: MARIANA GARCIA NP [Primary Care Provider] - Follow up tomorrow
[2019-05-28 20:21] VITALS: BP 140/94
== END 2019-05-28 20:25 | disposition home or self-care (01) ==
LOC: ER 17:36
DX: T80.59XA Anaphylactic reaction due to other serum, initial encounter (principal); T50.Z95A Adverse effect of other vaccines and biological substances, initial encounter; R07.89 Other chest pain; R06.2 Wheezing; R13.10 Dysphagia, unspecified; R06.02 Shortness of breath; I10 Essential (primary) hypertension
CPT/HCPCS: 99283; J7512